=== PATIENT | female | born 1985 | race Caucasian/White ===

== ENCOUNTER → 2025-02-02 | Outpatient (CLI) | payer OTHER, SELFPAY ==
--- NOTE | 2025-02-02 09:52 | RAD_ITS ---
EXAM: XR Lumbosacral Spine Flexion/Extension Only, 2 or 3 Views CLINICAL INDICATION: LUMBAR SPINE PAIN TECHNIQUE: Lateral flexion/extension views of the lumbar spine and sacrum. COMPARISON: No relevant prior studies available. FINDINGS: VERTEBRAE: Anterior spondylolisthesis of L4 over L5 by 6 mm on extension and 11 mm on flexion suggesting dynamic instability. Moderate facet arthropathy of L4-S1. No acute fracture. SACRUM/COCCYX: Unremarkable as visualized. No acute fracture. DISC SPACES: No acute findings. No significant narrowing. SOFT TISSUES: Unremarkable. RAD/L/S Spine Bending Flex/Ext IMPRESSION: Anterior spondylolisthesis of L4 over L5 by 6 mm on extension and 11 mm on flex ion suggesting dynamic instability. Reading Location: [facility]
== END | disposition home or self-care (01) ==
LOC: MTRAD 09:51
PROVIDERS: PCP Internal Medicine; Referring Provider Orthopaedic Surgery Orthopaedic Surgery of the Spine; Visit Provider Orthopaedic Surgery Orthopaedic Surgery of the Spine
DX: M43.16 Spondylolisthesis, lumbar region (principal)
CPT/HCPCS: 72120

== ENCOUNTER 2025-03-13 10:00 | Outpatient (RCR) | payer OTHER, SELFPAY ==
--- NOTE | 2025-02-09 15:28 | HP.PTEVAL ---
Patient's Visit Information Visit Information Visit Information: CECE SORENSON is a 39 year old F referred to Physical Therapy by Dr. Ernie Preciado MD with a diagnosis of Spondylolisthesis, spondylolysis.. Date of Evaluation: 02/09/25 Physical Therapist: Kris Rothman, DPT, OCS, CSCS Visit Plan Frequency: 2x /Week Duration: 4-6 Weeks Plan: 2x/week for 3-6 weeks IE HEP sitting posture with towel roll, activity modification for instability adn spondylolisthesis, avoid sitting excessively, other exercises to ry in the gym(back still) treat with core strength and hip strength eemphasizing core stability to HEP quickly with pics, find aggressive general ex that she tolerates(core stable) to get her back to workout, end range flexion ROM exercises to tolerance. quad psoas stretches rollout. ice and TENS as needed. start with 3 weeks and pt to get second opinion on surgery adn see pain management next week. Subjective Subjective: L hip pain was start and worked on stretching, chiropractor did not help. X rays hips were fine. sent to [facility] for LB. Pain has been off and on for yars. but episode last fall was very bad and hard to lift leg. Then relieved. started again 3 months. Crossfitteer but not lately, not picked up katelyn in 3 months, back spasms, hip pain laterally are main symtoms and L leg gets stiff. sitting in chair gets stiff in L leg and makes it hard to stand and walk. No numbness or tingling. Sleeping is interrupted, rolling in bed is not comfortable, Sometimes hard to lie on back. Gets out of bed gingerly. 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 Take care of kids 11 adn 9. Run them to sports, has had to avoid wrestling and playing sports with them. Pain L hip: Pain Intensity (Out of 10): 2 Pain Intensity Range: 0 and 9 Comment: sitting at ball games Objective Objective: Walks into PT I and trasnfeers I, hesitant on table rolls. Lumbar AROM ext is full and painful L, flexion is painful L LB and hesitant, SB are symmeetrical. rflexes 2/3 patella and achilles Sensation LE WNL to gross lgiht touch. Streength LE without myotomal probleems today, unstable with seated hip tsting in hips and spine. 3+ core strenght abd and ext, 3+ hip abd and ext adn rotation B. knee and ankles 5/5 + SLR L and = Slump L. Reepeated extension NE on symptoms, pt comfortable at rest today. Balance/Special Test Scores Oswestry Low Back Score: 26 Goals Goal 1:: pain in LB and L hip 80% better and 1/10 at worst. Goal Time Frame: 4-6 Weeks Goal 2:: Full aROM L/S without pain or hesitation. Goal Time Frame: 4-6 Weeks Goal 3:: sleep without interruption at night. Goal Time Frame: 4-6 Weeks Goal 4:: bed trasnfers without pain. Goal Time Frame: 4-6 Weeks Goal 5:: return to compreheensive workout without pain Goal Time Frame: 4-6 Weeks Goal 6:: oswestry score 8 or better Goal Time Frame: 4-6 Weeks Rehabilitation Potential Physical Therapy Diagnosis: pain and weakness limiting comfortable funciton Rehabilitation Potential: Fair Anticipated Interventions Patient/Client Instruction: Educate patient on: Condition and Plan of Care For the Purpose of:: To decrease pain, To increase ROM, To improve nutrient delivery to tissue, To improve muscle performance and motor function and To increase tolerance to activity/condition/position Therapeutic Exercise to Include: Strength training, Postural training, Flexibilty training, Active ROM and Dynamic Lumbar Stabilization For the Purpose of:: To decrease pain, To increase ROM, To improve nutrient delivery to tissue, To improve muscle performance and motor function, To increase tolerance to activity/condition/position, To improve ability of physical actions for home/community/work/leisure and To improve gait and locomotor functions Manual Therapy Techniques to Include: Soft tissue mobilization For the Purpose of:: To improve nutrient delivery to tissue TENS: Yes Cryotherapy (ice pack, ice massage): Yes For the Purpose of:: To decrease pain, To decrease swelling/inflammation and To improve nutrient delivery to tissue Text: Thank you for the opportunity to evaluate your patient. For Medicare and Medicare HMO plans, please review the plan of care and approve it. It will need to be FAXED BACK to us at [phone] for Medicare purposes. For Medicare only, by signing this I certify the plan of care. Please let me know if there are questions or concerns regarding this plan of care. Physician Signature: Date:
--- NOTE | 2025-05-23 15:10 | HP.PT.NRP ---
Patient Information Patient Information: CECE SORENSON was seen in my office for initial evaluation on 02/09/25. The following Plan of Care was established for this patient: POC Established Initial Frequency: 2x /Week Initial Duration: 4-6 Weeks Anticipated Interventions Patient/Client Instruction: Educate patient on: Condition and Plan of Care For the Purpose of:: To decrease pain, To increase ROM, To improve nutrient delivery to tissue, To improve muscle performance and motor function and To increase tolerance to activity/condition/position Therapeutic Exercise to Include: Strength training, Postural training, Flexibilty training, Active ROM and Dynamic Lumbar Stabilization For the Purpose of:: To decrease pain, To increase ROM, To improve nutrient delivery to tissue, To improve muscle performance and motor function, To increase tolerance to activity/condition/position, To improve ability of physical actions for home/community/work/leisure and To improve gait and locomotor functions Manual Therapy Techniques to Include: Soft tissue mobilization For the Purpose of:: To improve nutrient delivery to tissue TENS: Yes Cryotherapy (ice pack, ice massage): Yes For the Purpose of:: To decrease pain, To decrease swelling/inflammation and To improve nutrient delivery to tissue Last Seen Last Seen: This patient was last seen in our office 03/13/25. Pertinent comments regarding their Physical therapy will appear below: Pt seen 11 visits of POC and was 70+% better. she was to continue her POC but did not attend any further visits. At this point, it has been over 2 months and I will discontinue her from my care. At this point I will be discontinuing this patient from physical therapy. I would be happy to see this patient again in the future if found appropriate by the physician. Thank you! Kris Rothman, DPT, OCS, CSCS Balance/Gait/Functional tests Balance/Special Test Scores Oswestry Low Back Score: 18
== END 2025-03-13 19:00 | disposition home or self-care (01) ==
LOC: PT 10:00
PROVIDERS: PCP Internal Medicine; Referring Provider Orthopaedic Surgery Orthopaedic Surgery of the Spine; Visit Provider Orthopaedic Surgery Orthopaedic Surgery of the Spine
DX: M43.16 Spondylolisthesis, lumbar region (principal); M43.06 Spondylolysis, lumbar region
CPT/HCPCS: 97110; 97161; 97530

== ENCOUNTER → 2025-04-09 | Outpatient (CLI) | payer OTHER, SELFPAY ==
[2025-04-09 17:11] LABS: Hematocrit 39.9 % (37-47); Hemoglobin 13.7 g/dL (12.0-15.0); Immature Granulocytes Count 0.010 X10^3/uL (0.0-0.0); Mean Corp Hgb Conc 34.3 g/dL (32-36); Mean Corpuscular Volume 89.1 fL (81-99); Mean Platelet Vol. 9.3 fl (6.2-12.0); NRBC Flagged by Analyzer 0 % (0-5); Platelet Count 235 K/mm3 (150-450); RBC Distribution Width CV 12.1 % (11.6-14.6); RBC Distribution Width SD 39.4 fl (35.1-43.9); Red Blood Count 4.48 M/mm3 (4.2-5.4); White Blood Count 6.5 K/mm3 (4.4-11.0)
[2025-04-09 17:42] LABS: AST(SGOT) 17 U/L (<=31); Alanine Aminotransfer ALT/SGPT 10 U/L (<=34); Albumin, Serum 4.5 g/dL (3.5-5.0); Alkaline Phosphatase 42 U/L (35-104); Anion Gap 12 (5-15); BUN 18 mg/dL (4-19); BUN/Creat Ratio 20.7 RATIO (10-20); Calcium,Total 9.8 mg/dL (7.6-11.0); Carbon Dioxide 25.0 mmol/L (21.0-32.0); Chloride 103 mmol/L (98-108); Globulin 2.4 g/dL (2.2-4.2); Glucose 86 mg/dL (70-99); Potassium 4.4 mmol/L (3.3-5.1)
[2025-04-09 17:47] LABS: Vitamin B12 527 pg/mL (180-914); Vitamin D,25 Hydroxy 42.0 ng/mL (30-100)
== END | disposition home or self-care (01) ==
LOC: BIMLAB 15:31
PROVIDERS: PCP Internal Medicine; Referring Provider Internal Medicine; Visit Provider Internal Medicine
DX: F41.9 Anxiety disorder, unspecified (principal); F32.A Depression, unspecified
CPT/HCPCS: 36415; 80053; 82306; 82607; 84439; 84443; 85025

== ENCOUNTER → 2025-05-11 | Outpatient (CLI) | payer OTHER, SELFPAY ==
--- NOTE | 2025-05-11 16:14 | CT_ITS ---
PROCEDURE: CT ABDOMEN/PELVIS WITH CONTRAST 05/11/2025 REASON FOR EXAM: Epigastric abdominal tenderness/lump TECHNIQUE: Procedure Code: [id number] Modality: CT Procedure: ABDOMEN/PELVIS WITH CONTRAST Coronal and Sagittal reconstruction series were provided. IV CONTRAST: Isovue 370 VOLUME: 96 mL. Oral contrast was administered. One or more dose reduction techniques were used (e.g., Automated exposure control, adjustment of the mA and/or kV according to patient size, use of iterative reconstruction technique. RADIATION DOSE SUMMARY: DLP: 297.22 mGycm COMPARISON: None. FINDINGS: Lung bases: Clear. Liver: Hepatic steatosis. Otherwise unremarkable. Gallbladder: Unremarkable. No biliary ductal dilatation. Spleen: Normal size and morphology. Pancreas: Unremarkable. No focal lesion, ductal dilatation or peripancreatic fat stranding/edema to suggest acute pancreatitis. Adrenals: Unremarkable. Kidneys: Few bilateral small simple appearing renal cysts. Symmetric enhancement. No urolithiasis or hydronephrosis on either side. Bladder: Unremarkable. Reproductive Organs: Within normal limits. Bilateral small crenulated peripherally enhancing involuting ovarian cysts. No free pelvic fluid is appreciated. Bowel: Unremarkable. No bowel obstruction or active inflammatory process. Appendix is not well visualized but there are no pericecal inflammatory changes. No hernia. Lymph nodes: No enlarged abdominopelvic lymph nodes. Vasculature: Major vascular structures are patent, normal in course and caliber. Peritoneum / Retroperitoneum: No ascites or free air. Musculoskeletal: Mild degenerative changes of the visualized spine, with chronic degenerative grade 1 anterolisthesis of L4 on L5. bilateral breast implants. No ventral abdominal wall hernia. In the anterior midline epigastric ventral abdominal wall there is a subcutaneous fat density focus with the appearance of a small lipoma, which measures roughly 3.2 x 1.9 x 1.2 cm (TV, CC, AP). CT/Abdomen/Pelvis WITH Contrast IMPRESSION: No acute or active inflammatory intra-abdominal pathology. No ventral abdominal wall hernia. Small anterior abdominal wall midline epigas tric subcutaneous rounded fat density presumed lipoma at the area of clinical concern (see fry images). Reading Location: [id number]
--- OUTSIDE RECORDS SUMMARY | 2025-05-11 18:11 | XMS RPT_ITS | CCD ---
Author Organization [facility]ini[facility] Care Team Providers Care Logistics Planner Name Role Phone Pedro Pablo AN MD, Frank A Primary Care Provider Dori vailable RIC CHAMORRO III Primary Care Unavailable RASHAWN HOLLIS JR Referring Unavailable RIC CHAMORRO III Primary Care Unavailable CIERRA PAGAN Attending Unavailable DORA RENDON Referring Unavail able Dr. Rashawn Hollis DO Attending Provider Mariah GLASER, Dr. Knight Attending Provider Ozzy GLASER, Dr. Klein Attending Provider Dr. Ernie Preciado MD Referring Provider Mady GLASER, Dr. Tan Primary Care Provider Mady GLASER, Dr. Tan Referring Provider [phone] Dr. Dominick Earl MD Attending Provider [phone] Ungjoser OIL PROCESSING TECHNICIAN-CCrystal Attending Provider [phone] Oleghe, Efewongbe Primary Care Unavailable Preciado Ernie Attending Unavailable Preciado, Ernie Referring Unavailable Oleghe, Efewongbe Primary Care Unavailable Ernie Preciado Attending Unavailable Gio Preciadoag Referring Unavailable Rashawn Hollis Attending Unavailable Eugene Lemus Attending Unavailable Ernie Preciado Attending Unavailable Ungerer Crystal Referring Unavailable Oleghe, Efewongbe Primary Care Unavailable Ungerer Crystal Attending Unavailable Ungerer Crystal Referring Unavailable Oleghe, Efewongbe Primary Care Unavailable Ungerer, Crystal Attending Unavailable Oleghe, Efewongbe Referring Unavailable Oleghe, Efewongbe Primary Care Unavailable Preciado Ernie Attending Unavailable Ungerer, Crystal Attending Unavailable Oleghe, Efewongbe Referring Unavailable Mady, Dominick Primary Care Unavailable Mady, Dominick Primary Care Unavailable Tyler Earlbe Attending Unavailable Mady, Efowenongbe Referring Unavailable Mady, Joseongbe Attending Unavailable Mady, Joseongbe Referring Unavailable Mady, Dominick Primary Care Unavailable Medications Current Medications Medication Drug Class(es) Dates Sig (Normalized) Sig (Original) [id number] 200 actuat albuterol 0.09 mg/actuat metered dose inhaler (6 sources) beta2-Adrenergic Agonist Start: 04-14-2023 take 2 puff(s) by inhalation every six hours as needed albuterol HFA (PROAIR HFA) 90 mcg/actuation inhaler Inhale 2 Puffs as instructed every 6 hours as needed. 1 Each 04/14/2023 Active Comment on above: Inhale 2 Puffs as in structed every 6 hours as needed. meloxicam 7.5 mg oral tablet (3 sources) Nonsteroidal Anti-inflammatory Drug Start: 04-09-2025 take 1 tablet by mouth once daily Meloxicam 7.5 mg tablet Active 7.5 mg PO daily April 09, 2025 12:00am miSOPROStol 0.2 mg oral tablet (3 sources) Prostaglandin E1 Analog Start: 02-15-2024 miSOPROStol (CYTOTEC) 200 mcg tablet Use 2 tablets vaginally as directed. The night before the procedure and the morning of the procedure. 4 tablet 02/15/2024 Active sertraline 25 mg oral tablet (10 sources) Serotonin Reuptake Inhibitor Start: 04-10-2025 take 1 tablet by mouth once daily Sertraline (Zoloft) 25 mg tablet Active 25 mg PO daily 30 April 10, 2025 12:00am Start: 12-02-2020 End: 02-15-2024 take 1 tablet by mouth once daily sertraline (ZOLOFT) 50 mg tablet Indications: Anxiety Take 1 tablet by mouth once daily. 30 tablet 11 12/02/2020 02/15/2024 Discontinued Comment on above: Take 1 tablet by grecia once daily. triamcinolone acetonide 1 mg/ml topical cream (1 source) Corticosteroid Start: 05-14-2022 End: 05-21-2022 triamcinolone acetonide (KENALOG) 0.1 % cream Apply 1 application to affected area twice daily for 7 days. Apply sparingly to area for rash/itching. 45 g 0 05/14/2022 05/21/2022 Active Comment on above: Apply 1 application to affected area twice daily for 7 days. Apply sparingly to area for rash/itching. Completed/Discontinued Medications Medication Drug Class(es) Dates Sig (Normalized) Sig (Original) acetaminophen 325 mg / oxyCODONE hydrochloride 5 mg oral tablet (5 sources) Opioid Agonist Start: 03-01-2016 End: 01-12-2025 Oxycodone-Acetami nophen 1 TABLET tablet Discontinued 1 - 2 {tbl} PO EVERY 4 HOURS NEEDED as needed for Pain March 01, 2016 12:00am January 12, 2025 8:03am benzonatate 100 mg oral capsule (4 sources) Non-narcotic Antitussive Start: 04-14-2023 End: 02-15-2024 take 2 capsules by mouth every eight hours as needed benzonatate (TESSALON PERLES) 100 mg capsule Take 2 capsules by mouth three times daily as needed. 30 capsule 0 04/14/2023 02/15/2024 Discontinued Comment on above: Take 2 capsules by [facility] three times daily as needed. 12 hr cetirizine hydrochloride 5 mg / pseudoephedrine hydrochloride 120 mg extended release oral tablet (8 sources) alpha-Adrenergic Agonist, Histamine-1 Receptor Antagonist Start: 10-04-2018 End: 02-15-2024 take 1 tablet by mouth twice daily cetirizine-pseudo ephedrine (ZYRTEC-D) 5-120 mg per tablet Take 1 tablet by mouth twice daily. 20 tablet 10/04/2018 02/15/2024 Discontinued Comment on above: Take 1 tablet by [facility] twice daily. citalopram 10 mg oral tablet (5 sources) Serotonin Reuptake Inhibitor Start: 03-01-2016 End: 01-12-2025 take 1 tablet by mouth once daily Citalopram 10 MG tablet Discontinued 10 mg PO DAILY 30 March 01, 2016 12:00am January 12, 2025 8:03am DULoxetine 30 mg delayed release oral capsule (3 sources) Serotonin and Norepinephrine Reuptake Inhibitor Start: 04-09-2025 End: 04-10-2025 take 1 capsule by mouth once daily Duloxetine 30 mg capsule,delayed release(DR/EC) Discontinued 30 mg PO daily 30 3 April 09, 2025 12:00am April 10, 2025 1:08pm Ethinyl Estradiol / Ferrous fumarate / Norethindrone (9 sources) Estrogen Start: 12-10-2021 End: 02-15-2024 take 1 tablet by mouth once daily Norethindrn A-E Estradiol-Iron (FEBRUARYL FE 24) 1 mg-20 mcg (24)/75 mg (4) Take 1 tablet by mouth once daily. 28 tablet 11 12/10/2021 02/15/2024 Discontinued Start: 12-10-2021 take 1 tablet by grecia th once daily Norethindrn A-E Estradiol-Iron (FEBRUARYL FE 24) 1 mg-20 mcg (24)/75 mg (4) Take 1 tablet by mouth once daily. 28 tablet 11 12/10/2021 Active Start: 10-18-2020 End: 12-10-2021 take 1 tablet by mouth once daily Norethindrn A-E Estradiol-Iron (FEBRUARYL FE 24) 1 mg-20 mcg (24)/75 mg (4) Take 1 tablet by mouth once daily. 1 Package 12 10/18/2020 12/10/2021 Discontinued Comment on above: Take 1 tablet by grecia th once daily. etodolac 500 mg oral tablet (10 sources) Nonsteroidal Anti-inflammatory Drug Start: 025 End: take 1 tablet by mouth twice daily as needed for pain Etodolac 500 mg tablet Discontinued 500 mg PO TWICE A DAY as needed for pain 30 0 January 22, 2025 9:43am March 15, 2025 2:05pm Do not take in conjunction with ibuprofen or other NSAID. fluticasone propionate 0.05 mg/actuat metered dose nasal spray (8 sources) Corticosteroid Start: 019 End: take 2 spray(s) by mouth once daily fluticasone (FLONASE) 50 mcg/actuation nasal spray Use 2 Sprays in each nostril once daily. Rinse mouth after use. 1 Bottle 10/04/2018 02/15/2024 Discontinued Comment on above: Use 2 Sprays in each nostril once daily. Rinse mouth after use. ibuprofen 400 mg oral tablet (5 sources) Nonsteroidal Anti-inflammatory Drug Start: 016 End: take 2 tablets by mouth every eight hours as needed for pain Ibuprofen 400 MG tablet Discontinued 800 mg PO Q8H as needed for Pain 40 0 March 01, 2016 12:00pm April 09, 2025 2:51pm levonorgestrel 0.104608 mg/hr intrauterine system (2 sources) Progestin, Progestin-containing Intrauterine Device Start: 024 End: levonorgestrel (MIRENA) 21 mcg/24 hr (8 yrs) 52 mg IUD Indications: Encounter for IUD insertion 1 Each by INTRAUTERINE route as directed. 1 Each 0 02/15/2024 02/15/2024 Discontinued (Other) Vit,[id number]-[id number] (Prenatabs Fa ) 1 TABLET tablet (5 sources) Start: 014 End: 025 take 1 tablet by mouth once daily Vit,[id number] (Prenatabs Fa ) 1 TABLET tablet Discontinued 1 {tbl} PO DAILY January 27, 2014 12:00am January 12, 2025 8:04am Problems Active Problems Problem Classification Problem Date Documented Date Episodic/Chronic Abdominal pain (1 source) Epigastric abdominal tenderness; Translations: [Epigastric abdominal tenderness] Onset: 05-07-2025 Episodic Anxiety disorders (14 sources) Anxiety; Translations: [Anxiety disorder, unspecified] Onset: 09-05-2010 Resolved: 07-02-2018 Chronic Chronic obstructive pulmonary disease and bronchiectasis (1 source) Bronchitis; Translations: [Bronchitis, not specified as acute or chronic] 04-14-2023 Episodic Contraceptive and procreative management (1 source) Patient encounter status; Translations: [Encounter for insertion of intrauterine contraceptive device] 02-15-2024 Episodic Menstrual disorders (13 sources) Menorrhagia; Translations: [Excessive and frequent menstruation with regular cycle] Onset: 04-09-2025 12-24-2023 Chronic Mood disorders (1 source) Mood disorders; Translations: [Depression, unspecified] Onset: 04-09-2025 Other acquired deformities (20 sources) Spondylolisthesis; Translations: [Spondylolisthesis, site unspecified] Episodic Comment on above: . Other acquired deformities (14 sources) Lumbar spondylolisthesis; Translations: [Spondylolisthesis, lumbar region] 02-02-2025 Episodic Other acquired deformities (10 sources) Spondylolysis; Translations: [Spondylolysis, lumbar region] 01-12-2025 Episodic Other acquired deformities (1 source) Spondylolisthesis, lumbar region; Translations: [Spondylolisthesis, lumbar region] Onset: 02-08-2025 Episodic Other non-traumatic joint disorders (2 sources) Pain in left hip; Translations: [Pain in left hip] Onset: 01-12-2025 Episodic Spondylosis; intervertebral disc disorders; other back problems (18 sources) Spinal stenosis of lumbar region; Translations: [Spinal stenosis, lumbar region with neurogenic claudication] Onset: 04-09-2025 02-02-2025 Episodic Superficial injury; contusion (1 source) Insect bite of trunk; Translations: [Insect bite (nonvenomous) of abdominal wall, initial encounter] Episodic Thyroid disorders (10 sources) Secondary hypothyroidism; Translations: [Other specified hypothyroidism] Onset: 01-15-2017 01-15-2017 Chronic Unclassified (19 sources) Spondylolysis of lumbar region; Translations: [M43.06 - Spondylolysis, lumbar region,M43.16 - Spondylolisthesis, lumbar region] Unclassified (9 sources) M43.16 - Spondylolisthesis, lumbar region,M43.06 - Spondylolysis, lumbar region Past or Other Problems Problem Classification Problem Date Documented Da te Episodic/Chronic Miscellaneous mental health disorders (6 sources) depression; Translations: [ depression] Onset: 01-20-2017 Resolved: 07-02-2018 07-02-2018 Episodic Other acquired deformities (1 source) Spondylolysis, lumbar region; Translations: [Spondylolysis, lumbar region] Onset: 02-02-2025 Episodic Other and delivery including normal (18 sources) Normal in primigravida; Translations: [Encounter for supervision of normal first , unspecified trimester] Onset: 07-20-2013 Resolved: 04-08-2016 09-08-2021 Episodic Residual codes; unclassified (6 sources) FH: Chromosomal anomaly; Translations: [Family history of other congenital malformations, deformations and chromosomal abnormalities] Onset: 06-15-2013 Resolved: 09-26-2013 09-08-2021 Episodic Screening and history of mental health and substance abuse codes (6 sources) H/O: depression; Translations: [Personal history of other mental and behavioral disorders] Onset: 08-13-2015 Resolved: 04-08-2016 09-08-2021 Episodic Results Test Name Value Interpretation Reference Range Facility Internal Medicine Office Vis alice 05-01-2025 Internal Medicine Office Visit [facility] [address] [place] [address] [place] [address] OFFICE VISIT Date of Service: 05/01/25 MR#: [id number] Acct: [id number] Name: CECE OSBORNE Rep #: [id number] : 1985 Provider: LORRI enamorado Age/Sex: 40/F Location: [facility] Status: Signed Intake Vital Signs 04/09/25 14:55 05/01/25 12:29 Height 5 ft 5 ft Weight: 126 lb 123 lb 8 oz BMI 24.6 24.1 BP 106/58 L 118/70 Blood Pressure Location Lt brachial Lt brachial Position Sitting Sitting Respiration 16 16 Pulse 76 91 Pulse Source Monitor Monitor Temp 98 F 96.1 F L Temp Source Temporal Temporal Pulse Oximetry (%) 98 98 Oxygen Delivery Method room air room air Intake Visit Reasons: POSSIBLE HERNIA Chief Complaint: hernia Robotic Weld Technician Required: No Accompanied by: Self Is patient in pain?: No Allergies No Known Allergies Allergy (Verified 05/01/25 12:22) Medications ???Medication ???Instructions ???Recorded ???Confirmed ???Type sertraline 25 mg tablet (Zoloft) 25 mg PO QDAY #30 tabs 04/10/25 Rx meloxicam 7.5 mg tablet 7.5 mg PO QDAY #60 tabs 05/01/25 0 05/01/25 Rx Nurse's Note: prescription for meloxicam was sent 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 d/t [facility] stating they never recd order pain in left hip continues and now noticed a protrusion above umilicus [facility] Medical History Menorrhagia Anxiety and depression Anesth complication 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 Anxiety Surgical History History of breast augmentation History of delivery History of tonsillectomy Family History Father AA (alcohol abuse) Arthritis Depression Mother Anemia Hypercholesteremia Maternal Grandmother Ovarian cancer Thyroid disorder Uterine cancer Osteoporosis Colon cancer Melanoma CVA (cerebral vascular accident) Hypercholesteremia Maternal Grandfather Myocardial infarction Heart disease Kidney disease Melanoma CVA (cerebral vascular accident) Grandfather Heart disease Sister Severe allergy Social History adopted: No household members: spouse and children number of children: 2 current occupational status: unemployed pets and animals: No sexually active: Yes Smoking Status: Never smoker alcohol intake: current alcohol intake frequency: holidays/special occasions only details: < 3 in 1 sitting substance use type: does not use caffeine: Yes (1 rain energy 300mg) Type: other what type of physical activity do you participate in: aerobics frequency: 5-6 times per week do you feel safe at home: Yes HPI HPI Chief Complaint: hernia Details: CECE OSBORNE, is a 40 F who presents to the office today for concern of a new bump in her upper abdomen. Patient was lying down and noticed a lump in her upper abdomen approximately 2 days ago patient was concerned about hernia. Patient denies pain in the area states area is sometimes tender. Area has persisted and she denies any history of abdominal injury to that area or any previous hernias. Patient also continues to complain of pain in the left hip she has been seen by orthopedics previously and treated for lower back pain as well. She needs a refill on her meloxicam. She denies any nausea vomiting denies constipation denies diarrhea. Denies any acute abdominal pain or concerns. ROS Const Constitutional: No body ache, excessive sweating, fatigue, fever(s), frequent falls, headache(s), snoring, weakness, weight change, sleep problems or change in appetite Eyes Eyes: No blurry vision, change in vision, eye pain or Light sensitivity ENT ENT: No abnormal hearing, ear or mastoid pain, tinnitus, nasal congestion, headache(s), neck pain or sore throat Resp Respiratory: No cough, shortness of breath, snoring or wheezing Cardio Cardiology: No chest pain at rest, chest pain with exertion, excessive sweating, shortness of breath, dyspnea on exertion, lightheadedness, orthopnea or palpitations Gastro GI: No abdominal pain, change in bowel habits, constipation, cramping, diarrhea, nausea/dyspepsia or vomiting Genitourinary-Female: No burning urination, painful urination, urinary incontinence, urinary frequency, blood in urine, abnormal periods or pelvic pain Musc Musculoskeletal: No abnormal gait, joint pain, back pain, limited range of motion, neck pain, numbness, stiffness, tingling or Arthritis Skin Skin: No dry skin, redness, lesions, itchy eyes, rash or wounds Neuro Neurology: No abnormal gait, abnormal hearing, abnormal speech, dizziness, weakness, frequent falls, headache(s), memory loss, numbness or tingling Psych Psychiatric: No anxiety, No change i (more content not included)... Normal [facility] Absolute lymphocyte countOrd ered By: Dominick Earl on 04-09-2025 Lymphocytes Auto (Unsp spec) [#/Vol] 2.34 10*3/uL 0.83-4.51 [facility] Absolute neutrophil countOrd ered By: Dominick Earl on 04-09-2025 Neutrophils (Bld) [#/Vol] 3.3 10*3/uL 2.0-7.7 [facility] Anion gap in Serum or Plasma Ordered By: Dominick Earl on 04-09-2025 Anion gap [Moles/Vol] 12 mmol/L 5-15 [facility] Automated lymphocyte count a s percentage of total leukocytesOrdered By: Dominick Earl on 04-09-2025 Lymphocytes/100 WBC Auto (Unsp spec) 36.2 % 19-41 [facility] BUN/creatinine ratioOrdered By: Dominick Earl on 04-09-2025 Urea nitrogen/Creatinine [Mass ratio] 20.7 mg/mg High 10-20 [facility] Basophil percentageOrdered B y: Dominick Earl on 04-09-2025 Basophils/100 WBC (Bld) 0.9 % 0-1 [facility] Bilirubin, totalOrdered By: Dominick Earl on 04-09-2025 Bilirubin [Mass/Vol] 0.89 mg/dL 0.00-1.30 [facility] CBC W/Diff, Automatedon 07- Absolute Lymph 2.34 X10 3/uL Normal 0.83-4.51 [facility] Comment on above: Performed By: #### L 506.1001, L503.0106, L506.0400, L100.0100, L501.9520, L500.4050 #### [facility] [address] [place], [address] Absolute Neut 3.3 X10 3/uL Normal 2.0-7.7 [facility] Comment on above: Performed By: #### L 506.1001, L503.0106, L506.0400, L100.0100, L501.9520, L500.4050 #### [facility] [address] [place], [address] Basophils/100 WBC (Bld) 0.9 % Normal 0-1 [facility] Comment on above: Performed By: #### L 506.1001, L503.0106, L506.0400, L100.0100, L501.9520, L500.4050 #### [facility] [address] [place], [address] Eosinophils/100 WBC (Bld) 1.9 % Normal 0-5 [facility] Comment on above: Performed By: #### L 506.1001, L503.0106, L506.0400, L100.0100, L501.9520, L500.4050 #### [facility] [address] [place], [address] Erythrocyte distribution width (RBC) [Ratio] 12.1 % Normal 11.6-14.6 [facility] Comment on above: Performed By: #### L 506.1001, L503.0106, L506.0400, L100.0100, L501.9520, L500.4050 #### [facility] [address] [place], [address] Hematocrit (Bld) [Volume fraction] 39.9 % Normal 37-47 [facility] Comment on above: Performed By: #### L 506.1001, L503.0106, L506.0400, L100.0100, L501.9520, L500.4050 #### [facility] [address] [place], [address] Hemoglobin (Bld) [Mass/Vol] 13.7 g/dL Normal 12.0-15.0 [facility] Comment on above: Performed By: #### L 506.1001, L503.0106, L506.0400, L100.0100, L501.9520, L500.4050 #### [facility] [address] [place], [address] IG% 0.200 Normal 0.0-0.9 [facility] Comment on above: Result Comment: IG% - Immature Granulocytes (promyelocytes, myelocytes and metamyelocytes) > 1% indicates that a LEFT SHIFT is Present. Performed By: #### L 506.1001, L503.0106, L506.0400, L100.0100, L501.9520, L500.4050 #### [facility] [address] [place], [address] Lymphocytes/100 WBC (Bld) 36.2 % Normal 19-41 [facility] Comment on above: Performed By: #### L 506.1001, L503.0106, L506.0400, L100.0100, L501.9520, L500.4050 #### [facility] [address] [place], [address] MCH (RBC) [Entitic mass] 30.6 pg Normal 27.0-32.0 [facility] Comment on above: Performed By: #### L 506.1001, L503.0106, L506.0400, L100.0100, L501.9520, L500.4050 #### [facility] [address] [place], [address] MCHC (RBC) [Mass/Vol] 34.3 g/dL Normal 32-36 [facility] Comment on above: Performed By: #### L 506.1001, L503.0106, L506.0400, L100.0100, L501.9520, L500.4050 #### [facility] [address] [place], [address] MCV (RBC) [Entitic vol] 89.1 fL Normal 81-99 [facility] Comment on above: Performed By: #### L 506.1001, L503.0106, L506.0400, L100.0100, L501.9520, L500.4050 #### [facility] [address] [place], [address] Monocytes/100 WBC (Bld) 9.4 % Normal 0-10 [facility] Comment on above: Performed By: #### L 506.1001, L503.0106, L506.0400, L100.0100, L501.9520, L500.4050 #### [facility] [address] [place], [address] Neutrophils/100 WBC (Bld) 51.4 % Normal 47-70 [facility] Comment on above: Performed By: #### L 506.1001, L503.0106, L506.0400, L100.0100, L501.9520, L500.4050 #### [facility] [address] [place], [address] Nucleated RBC (Bld) [#/Vol] 0 10*3/uL Normal 0-5 [facility] Comment on above: Performed By: #### L 506.1001, L503.0106, L506.0400, L100.0100, L501.9520, L500.4050 #### [facility] [address] [place], [address] Platelet mean volume (Bld) [Entitic vol] 9.3 fL Normal 6.2-12.0 [facility] Comment on above: Performed By: #### L 506.1001, L503.0106, L506.0400, L100.0100, L501.9520, L500.4050 #### [facility] [address] [place], [address] Platelets (Bld) [#/Vol] 235 10*3/uL Normal 150-450 [facility] Comment on above: Performed By: #### L 506.1001, L503.0106, L506.0400, L100.0100, L501.9520, L500.4050 #### [facility] [address] [place], [address] RBC (Bld) [#/Vol] 4.48 10*6/uL Normal 4.2-5.4 [facility] Comment on above: Performed By: #### L 506.1001, L503.0106, L506.0400, L100.0100, L501.9520, L500.4050 #### [facility] [address] [place], [address] RDW SD 39.4 fl Normal 35.1-43.9 [facility] Comment on above: Performed By: #### L 506.1001, L503.0106, L506.0400, L100.0100, L501.9520, L500.4050 #### [facility] [address] [place], [address] WBC (Bld) [#/Vol] 6.5 10*3/uL Normal 4.4-11.0 [facility] Comment on above: Performed By: #### L 506.1001, L503.0106, L506.0400, L100.0100, L501.9520, L500.4050 #### [facility] [address] [place], [address] Carbon dioxide, total [Moles /volume] in Central venous bloodOrdered By: Dominick Earl on 04-09-2025 CO2 [Moles/Vol] 25.0 mmol/L 21.0-32.0 [facility] Chloride assayOrdered By: Juliann Earl on 04-09-2025 Chloride [Moles/Vol] 103 mmol/L 98-108 [facility] Metabolic Prof ilon 04-09-2025 Albumin [Mass/Vol] 4.5 g/dL Normal 3.5-5.0 [facility] Comment on above: Performed By: #### L 506.1001, L503.0106, L506.0400, L100.0100, L501.9520, L500.4050 #### [facility] [address] [place], [address] Albumin/Globulin [Mass ratio] 1.9 {ratio} Normal 0.9-2.4 [facility] Comment on above: Performed By: #### L 506.1001, L503.0106, L506.0400, L100.0100, L501.9520, L500.4050 #### [facility] [address] [place], [address] ALK PHOS 42 U/L Normal 35-104 [facility] Comment on above: Performed By: #### L 506.1001, L503.0106, L506.0400, L100.0100, L501.9520, L500.4050 #### [facility] [address] [place], [address] ALT [Catalytic activity/Vol] 10 U/L Normal <=34 [facility] Comment on above: Performed By: #### L 506.1001, L503.0106, L506.0400, L100.0100, L501.9520, L500.4050 #### [facility] [address] [place], [address] AST [Catalytic activity/Vol] 17 U/L Normal <=31 [facility] Comment on above: Performed By: #### L 506.1001, L503.0106, L506.0400, L100.0100, L501.9520, L500.4050 #### [facility] [address] [place], [address] Bilirubin [Mass/Vol] 0.89 mg/dL Normal 0.00-1.30 [facility] Comment on above: Performed By: #### L 506.1001, L503.0106, L506.0400, L100.0100, L501.9520, L500.4050 #### [facility] [address] [place], [address] BUN/CRE 20.7 RATIO High 10-20 [facility] Comment on above: Performed By: #### L 506.1001, L503.0106, L506.0400, L100.0100, L501.9520, L500.4050 #### [facility] [address] [place], [address] Calcium [Mass/Vol] 9.8 mg/dL Normal 7.6-11.0 [facility] Comment on above: Performed By: #### L 506.1001, L503.0106, L506.0400, L100.0100, L501.9520, L500.4050 #### [facility] [address] [place], [address] Chloride [Moles/Vol] 103 mmol/L Normal 98-108 [facility] Comment on above: Performed By: #### L 506.1001, L503.0106, L506.0400, L100.0100, L501.9520, L500.4050 #### [facility] [address] [place], [address] CO2 [Moles/Vol] 25.0 mmol/L Normal 21.0-32.0 [facility] Comment on above: Performed By: #### L 506.1001, L503.0106, L506.0400, L100.0100, L501.9520, L500.4050 #### [facility] [address] [place], [address] Creatinine [Mass/Vol] 0.87 mg/dL Normal 0.70-1.20 [facility] Comment on above: Performed By: #### L 506.1001, L503.0106, L506.0400, L100.0100, L501.9520, L500.4050 #### [facility] [address] [place], [address] GAP 12 Normal 5-15 [facility] Comment on above: Performed By: #### L 506.1001, L503.0106, L506.0400, L100.0100, L501.9520, L500.4050 #### [facility] [address] [place], [address] GFR/1.73 sq M.predicted among non-blacks MDRD (S/P/Bld) [Vol rate/Area] 87 mL/min/{1.73_m2} Normal >60 [facility] Comment on above: Result Comment: mL/m in/1.73m2 CKD-EPI Creatinine Equation (2020) Performed By: #### L 506.1001, L503.0106, L506.0400, L100.0100, L501.9520, L500.4050 #### [facility] [address] [place], [address] Globulin (S) [Mass/Vol] 2.4 g/dL Normal 2.2-4.2 [facility] Comment on above: Performed By: #### L 506.1001, L503.0106, L506.0400, L100.0100, L501.9520, L500.4050 #### [facility] [address] [place], [address] Glucose [Mass/Vol] 86 mg/dL Normal 70-99 [facility] Comment on above: Performed By: #### L 506.1001, L503.0106, L506.0400, L100.0100, L501.9520, L500.4050 #### [facility] [address] [place], [address] Potassium [Moles/Vol] 4.4 mmol/L Normal 3.3-5.1 [facility] Comment on above: Performed By: #### L 506.1001, L503.0106, L506.0400, L100.0100, L501.9520, L500.4050 #### [facility] [address] [place], [address] Sodium [Moles/Vol] 139 mmol/L Normal 133-145 [facility] Comment on above: Performed By: #### L 506.1001, L503.0106, L506.0400, L100.0100, L501.9520, L500.4050 #### [facility] [address] [place], [address] T PROT 6.8 g/dL Normal 5.9-8.4 [facility] Comment on above: Performed By: #### L 506.1001, L503.0106, L506.0400, L100.0100, L501.9520, L500.4050 #### [facility] [address] [place], [address] Urea nitrogen [Mass/Vol] 18 mg/dL Normal 4-19 [facility] Comment on above: Performed By: #### L 506.1001, L503.0106, L506.0400, L100.0100, L501.9520, L500.4050 #### [facility] [address] [place], [address] Eosinophil percentageOrdered By: Dominick Earl on 04-09-2025 Eosinophils/100 WBC (Bld) 1.9 % 0-5 [facility] Erythrocyte distribution wid th ratioOrdered By: Josecrosbynusrat Earl on 04-09-2025 Erythrocyte distribution width (RBC) [Ratio] 12.1 % 11.6-14.6 [facility] Erythrocyte distribution wid th standard deviationOrdered By: Josecrosbynusrat Earl on 04-09-2025 Erythrocyte distribution width (RBC) [Ratio] 39.4 fl 35.1-43.9 [facility] Glomerular filtration rate ( GFR) estimation/1.73 sq m using serum, plasma, or whole bOrdered By: Dominick Earl on 04-09-2025 GFR/1.73 sq M.predicted among non-blacks MDRD (S/P/Bld) [Vol rate/Area] 87 mL/min/{1.73_m2} >60 [facility] Comment on above: mL/min/1.73m2 CKD-EP I Creatinine Equation (2020) Hematocrit Auto (Bld) [Volum e fraction]Ordered By: Dominick Earl on 04-09-2025 Hematocrit (Bld) [Volume fraction] 39.9 % 37-47 [facility] Hemoglobin measurementOrdere d By: Dominick Earl on 04-09-2025 Hemoglobin (Bld) [Mass/Vol] 13.7 g/dL 12.0-15.0 [facility] Immature granulocytes/100 WB C Auto (Bld)Ordered By: Dominick Earl on 04-09-2025 Immature granulocytes/100 WBC (Bld) 0.200 % 0.0-0.9 [facility] Comment on above: IG% - Immature Granu locytes (promyelocytes, myelocytes and metamyelocytes) > 1% indicates that a LEFT SHIFT is Present. Internal Medicine Office Vis itolili 04-09-2025 Internal Medicine Office Visit [facility] [address] [place] [address] OFFICE VISIT Date of Service: 04/09/25 MR#: [id number] Acct: [id number] Name: CECE OSBORNE Rep #: [id number] : 1985 Provider: Dr. 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 Anxiety Surgical History (Updated 04/09/25 @ 14:37 by Keisha Toussaint MA) History of breast augmentation History of delivery History of tonsillectomy Family History (Updated 04/09/25 @ 14:48 by Keisha Toussaint MA) Father AA (alcohol abuse) Arthritis Depression Mother Anemia Hypercholesteremia Maternal Grandmother Ovarian cancer Thyroid disorder Uterine cancer Osteoporosis Colon cancer Melanoma CVA (cerebral vascular accident) Hypercholesteremia Maternal Grandfather Myocardial infarction Heart disease Kidney disease Melanoma CVA (cerebral vascular accident) Grandfather Heart disease Sister Severe allergy Social History (Updated 04/09/25 @ 14:50 by Keisha Toussaint MA) adopted: No household members: spouse and children number of children: 2 current occupational status: unemployed pets and animals: No sexually active: Yes Smoking Status: Never smoker alcohol intake: current alcohol intake frequency: holidays/special occasions only details: < 3 in 1 sitting substance use type: does not use caffeine: Yes (1 rain energy 300mg) Type: other what type of physical activity do you participate in: aerobics frequency: 5-6 times per week do you feel safe at home: Yes HPI HPI Chief Complaint: Establish care Details: CECE OSBORNE, is a 40 F who presents to the office today to establish care. Also has some concerns. Chronic history of anxiety and depression with worsening symptoms lately. Following up with pain management and spine Ortho due to chronic back pain/radiculopathy. Had been very active engaging in CrossFit activities to help destress however, following recent events, has not been able to exercise as she would like to. Scored 19 and 17 on the PHQ-9 and ANA LAURA-7 respectively. About 9 years ago, she was on Zoloft which she tolerated well. Discontinued Zoloft after symptoms improved. Plans to establish with SHIRT SORTER shortly. Previously seen at the [facility] however, wants to establish with [facility]. Has been having heavy bleeds lately. An attempt was made at [facility] by her prior SHIRT SORTER however this was unsuccessful. ROS Const Constitutional: No body ache, chills, excessive sweating, fatigue, fever(s), frequent falls, headache(s), snoring, weakness, sleep problems or change in appetite Eyes Eyes: No blurry vision, change in vision, vision loss, dry eyes, eye pain or Light sensitivity ENT ENT: No abnormal hearing, ear or mastoid pain, tinnitus, dizziness/vertigo, nasal congestion, headache(s), neck pain or sore throat Resp Respiratory: No cough, excessive phlegm production, hemoptysis, shortness of breath, snoring or wheezing Cardio Cardiology: No chest pain at rest, chest pain with exertion, excessive sweating, shortness of breath, dyspnea on exertion, lightheadedness, orthopnea or palpitations Gastro GI: No abdominal pain, change in bowel habits, change in stool character, constipation, cramping, diarrhea, nausea/dyspepsia or vomiting Genitourinary-Female: No burning urination, painful urination, urinary incontinence, urinary frequency, abnormal vaginal bleeding or pelvic pain Musc Musculoskeletal: Positive for joint pain, limited range of motion and other; No back pain, neck pain or numbness Skin Skin: No dry skin, redness, lesions, itchy eyes, rash or wounds Neuro Neurology: No abnormal hearing, abnormal speech, behavioral changes, weakness, frequent falls, headache(s), memory loss or numbness Psych Psychiatric: (more content not included)... Normal [facility] - Chemistry and C hemistry - challengeOrdered By: Dominick Earl on 04-09-2025 AST [Catalytic activity/Vol] 17 U/L <32 [facility] MCV (mean corpuscular volume ) determinationOrdered By: Dominick Earl on 04-09-2025 MCV (RBC) [Entitic vol] 89.1 fL 81-99 [facility] Mean corpuscular hemoglobin (MCH) determinationOrdered By: Dominick Earl on 04-09-2025 MCH (RBC) [Entitic mass] 30.6 pg 27.0-32.0 [facility] Mean corpuscular hemoglobin concentration (MCHC) determinationOrdered By: Dominick Earl on 04-09-2025 MCHC (RBC) [Mass/Vol] 34.3 g/dL 32-36 [facility] Mean platelet volume determi nationOrdered By: Dominick Earl on 04-09-2025 Platelet mean volume (Bld) [Entitic vol] 9.3 fL 6.2-12.0 [facility] Monocyte percentageOrdered B y: Dominick Earl on 04-09-2025 Monocytes/100 WBC (Bld) 9.4 % 0-10 [facility] Neutrophil percentageOrdered By: Dominick Earl on 04-09-2025 Neutrophils/100 WBC (Bld) 51.4 % 47-70 [facility] Nucleated red blood cell per centageOrdered By: Dominick Earl on 04-09-2025 Nucleated RBC/100 WBC (Bld) [Ratio] 0 % 0-5 [facility] Platelet countOrdered By: Juliann Earl on 04-09-2025 Platelets (Bld) [#/Vol] 235 10*3/uL 150-450 [facility] Potassium measurement (mass/ volume)Ordered By: Dominick Earl on 04-09-2025 Potassium (Unsp spec) [Mass/Vol] 4.4 mmol/L 3.3-5.1 [facility] RBC Auto (Bld) [#/Vol]Ordere d By: Dominick Earl on 04-09-2025 RBC (Bld) [#/Vol] 4.48 10*6/uL 4.2-5.4 [facility] Serum creatinine measurement (mass/volume)Ordered By: Dominick Earl on 04-09-2025 Creatinine [Mass/Vol] 0.87 mg/dL 0.70-1.20 [facility] Serum globulin measurementOr dered By: Dominick Earl on 04-09-2025 Globulin (S) [Mass/Vol] 2.4 g/dL 2.2-4.2 [facility] Serum glucose measurement (m ass/volume)Ordered By: Dominick Earl on 04-09-2025 Glucose [Mass/Vol] 86 mg/dL 70-99 [facility] Serum or plasma alanine hahn otransferase (ALT) measurementOrdered By: Dominick Earl on 04-09-2025 ALT [Catalytic activity/Vol] 10 U/L <35 [facility] Serum or plasma albumin ef urement (mass/volume)Ordered By: Dominick Earl 04-09-2025 Albumin [Mass/Vol] 4.5 g/dL 3.5-5.0 [facility] Serum or plasma albumin/glob ulin mass ratioOrdered By: Dominick Earl on 04-09-2025 Albumin/Globulin [Mass ratio] 1.9 {ratio} 0.9-2.4 [facility] Serum or plasma alkaline phil sphatase measurementOrdered By: Dominick Earl on 04-09-2025 ALP [Catalytic activity/Vol] 42 U/L 35-104 [facility] Serum or plasma calcium fe urement (mass/volume)Ordered By: Dominick Earl on 04-09-2025 Calcium [Mass/Vol] 9.8 mg/dL 7.6-11.0 [facility] Serum or plasma urea nitroge n measurement (mass/volume)Ordered By: Dominick Earl on 04-09-2025 Urea nitrogen [Mass/Vol] 18 mg/dL 4-19 [facility] Sodium levelOrdered By: Jose Earl on 04-09-2025 Sodium [Moles/Vol] 139 mmol/L 133-145 [facility] T4 Free Directon 04-09-2025 T4 FREE DIRECT 1.30 ng/dL Normal 0.76-1.46 [facility] Comment on above: Performed By: #### L 506.1001, L503.0106, L506.0400, L100.0100, L501.9520, L500.4050 ####[facility] [address] [place], [place], [id number] T4 freeOrdered By: Dominick Earl on 04-09-2025 Free T4 [Mass/Vol] 1.30 ng/dL 0.76-1.46 [facility] TSH DL <= 0.005 mIU/L QnOrde red By: Dominick Earl on 04-09-2025 TSH Qn 1.010 uIU/mL 0.300-4.200 [facility] Thyroid Stim Hormone (TSH)on 04-09-2025 TSH 1.010 uIU/mL Normal 0.300-4.200 [facility] Comment on above: Performed By: #### L 506.1001, L503.0106, L506.0400, L100.0100, L501.9520, L500.4050 #### [facility] [address] [place], [place], [id number] Total proteinOrdered By: Michelet Earl on 04-09-2025 Protein [Mass/Vol] 6.8 g/dL 5.9-8.4 [facility] Vitamin B12on 04-09-2025 Cobalamin (Vitamin B12) [Mass/Vol] 527 pg/mL Normal 180-914 [facility] Comment on above: Performed By: #### L 506.1001, L503.0106, L506.0400, L100.0100, L501.9520, L500.4050 #### [facility] [address] [place], [place], [id number] Vitamin B12 ser/plasOrdered By: Dominick Earl on 04-09-2025 Cobalamin (Vitamin B12) [Mass/Vol] 527 pg/mL 180-914 [facility] Vitamin D,25 Hydroxyon 04-09 Vitamin D 25-OH 42.0 ng/mL Normal 30-100 [facility] Comment on above: Result Comment: Carol min D Status Deficiency: <20 ng/mL (50nmol/L) Insufficiency: 20-30 ng/mL (50-75 nmol/L) Sufficiency: 30-100 ng/mL (75-250 nmol/L) Toxicity: >100 ng/mL (>250 nmol/L) Performed By: #### L 506.1001, L503.0106, L506.0400, L100.0100, L501.9520, L500.4050 ####[facility] [address] [place], [place], [id number] White blood cell (WBC) count Ordered By: Dominick Earl on 04-09-2025 WBC (Bld) [#/Vol] 6.5 10*3/uL 4.4-11.0 [facility] Orthopedic Visit Reporton Orthopedic Visit Report [facility] [address] [place] [address] 5 [place], [place] [address] OFFICE VISIT Date of Service: 03/15/25 MR#: [id number] Acct: [id number] Name: YASCECE Rep #: [id number] : 1985 Provider: Dr. Ernie Preciado MD Age/Sex: 40/F Location: [facility] [place] Status: Signed Intake Vital Signs 01/12/25 08:02 Height 5 ft Intake Visit Reasons: LUMBAR SPINE Chief Complaint: Lumbar Spine Pain Follow-Up Accompanied by: Self Is patient in pain?: Yes Pain scale (1-10): 1 Allergies No Known Allergies Allergy (Verified 03/15/25 13:58) Medications ???Medication ???Instructions ???Recorded ???Confirmed ???Type ibuprofen 400 mg tablet 800 mg (2 x 400 mg) PO Q8H PRN 03/15/25 Rx Pain #40 TABLETS PFSH Surgical History History of breast augmentation History of delivery History of tonsillectomy Family History Other Cancer Heart disease Hypertension Social History household members: spouse and children Smoking Status: Never smoker alcohol intake: current alcohol intake frequency: holidays/special occasions only HPI LUMBAR SPINE Details: This documentation accurately reflects the service provided and the decisions made by me, Dr. Ernie Preciado MD 03/15/25 1710. Part of today???s visit was documented by Elizabeth Mendez ATC and Sherlyn Mcbride RN, acting as scribe. CECE OSBORNE is a 40 year old F here today for lumbar spine pain. Patient had an epidural steroid injection with Dr. Harris a few weeks ago and had a follow-up with him on Wednesday. He told her it does not seem to be nerve pain coming from the lumbar spine so he is going to try a steroid injection into the left hip when she gets back from vacation in March. She states she has noticed some relief from the 6 weeks of physical therapy and the injection. She states the pain, stiffness that she is having is still in the left hip and glute area. She has no pain on the right side. Dr. Harris thinks it is more the muscles/tendons that run down into the hip bone. Dr. Harris prescribed her meloxicam and she was going to cigar packer and picker the prescription today after her appointment. She is now able to sleep on her back and turn from side to side which she was not able to do so before. The weakness in her legs has improved since her last office visit. The patient is a 40-year-old female presenting with gluteal and hip pain. The patient has been undergoing physical therapy for six weeks, experiencing variable results with some days better than others. She received an epidural injection approximately two and a half to three weeks ago, which has helped alleviate some symptoms, allowing her to sleep on her back and change positions in bed without pain. Despite the injection, she continues to experience deep gluteal pain radiating to the side of her hip. Previously, the pain extended down to her foot, causing a sensation of heaviness, but this has improved. The patient reports that walking can lead to fatigue and aching, particularly after activities such as grocery shopping. She has not been walking much recently due to travel commitments and plans to assess her walking tolerance during an upcoming vacation. The patient has a history of lumbar spondylolisthesis at L4-5, contributing to her symptoms. She experiences both arthritic and nerve pain, with the latter improving after the injection. She has reduced her physical activity, including CrossFit, due to exacerbation of symptoms, and currently engages in physical therapy twice a week. - Musculoskeletal: Reports gluteal and hip pain, improved ability to sleep on back and change positions in bed, fatigue and aching after walking. - Neurological: Reports previous heaviness in foot, now improved. Attestation: Documentation on this patient encounter was supported using ambient scribe technology/ voice AI technology. The patient consented to recording for the purpose of documenting the encounter. Provider reviewed content of the generated note prior to signature. Ortho Exam General General: Yes no acute distress Neurologic: Yes alert and Yes oriented x3 Psychologic: Yes reasonable and appropriate Spine SPINE TESTING CERVICAL THORACIC LUMBAR Musculoskeletal Strength 0=absent - 5=normal Details: Examination the back shows midline and left paraspinal tenderness. Neurologic evaluation of lower extremity shows 5 x 5 power in all muscle except for left ankle dorsiflexion which is grade 4+. Passive straight leg raise test is positive on the left. Figure 4 test is positive on the left. There is no hyperreflexia lower extremities. Exam Narrative - Musc (more content not included)... Normal [facility] Inital Evaluation (1) - PTon 02-09-2025 Inital Evaluation (1) - PT [facility] [address] [place] [address] / REHABILITATION SERVICES INITIAL EVALUATION MR#: [id number] Acct: [id number] Name: CECE OSBORNE Rep #: [id number] : 1985 39 From: Kris Rothman DPT, OCS, CSCS Referring Dr.: Dr. Ernie Preciado MD Status: REG RCR Insurance: [employer] INSURANCE Patient's Visit Information Visit Information Visit Information: CECE OSBORNE is a 39 year old F referred to Physical Therapy by Dr. Ernie Preciado MD with a diagnosis of Spondylolisthesis, spondylolysis.. Date of Evaluation: 02/09/25 Physical Therapist: Kris Rothman DPT, OCS, CSCS Visit Plan Frequency: 2x /Week Duration: 4-6 Weeks Plan: 2x/week for 3-6 weeks IE HEP sitting posture with towel roll, activity modification for instability adn spondylolisthesis, avoid sitting excessively, other exercises to ry in the gym(back still) treat with core strength and hip strength eemphasizing core stability to HEP quickly with pics, find aggressive general ex that she tolerates(core stable) to get her back to workout, end range flexion ROM exercises to tolerance. quad psoas stretches rollout. ice and TENS as needed. start with 3 weeks and pt to get second opinion on surgery adn see pain management next week. Subjective Subjective: L hip pain was start and worked on stretching, chiropractor did not help. X rays hips were fine. sent to [facility] for LB. Pain has been off and on for yars. but episode last fall was very bad and hard to lift leg. Then relieved. started again 3 months. Crossfitteer but not lately, not picked up katelyn in 3 months, back spasms, hip pain laterally are main symtoms and L leg gets stiff. sitting in chair gets stiff in L leg and makes it hard to stand and walk. No numbness or tingling. Sleeping is interrupted, rolling in bed is not comfortable, Sometimes hard to lie on back. Gets out of bed gingerly. 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 Take care of kids 11 adn 9. Run them to sports, has had to avoid wrestling and playing sports with them. Pain L hip: Pain Intensity (Out of 10): 2 Pain Intensity Range: 0 and 9 Comment: sitting at ball games Objective Objective: Walks into PT I and trasnfeers I, hesitant on table rolls. Lumbar AROM ext is full and painful L, flexion is painful L LB and hesitant, SB are symmeetrical. rflexes 2/3 patella and achilles Sensation LE WNL to gross lgiht touch. Streength LE without myotomal probleems today, unstable with seated hip tsting in hips and spine. 3+ core strenght abd and ext, 3+ hip abd and ext adn rotation B. knee and ankles 5/5 + SLR L and = Slump L. Reepeated extension NE on symptoms, pt comfortable at rest today. Balance/Special Test Scores Oswestry Low Back Score: 26 Goals Goal 1:: pain in LB and L hip 80% better and 1/10 at worst. Goal Time Frame: 4-6 Weeks Goal 2:: Full aROM L/S without pain or hesitation. Goal Time Frame: 4-6 Weeks Goal 3:: sleep without interruption at night. Goal Time Frame: 4-6 Weeks Goal 4:: bed trasnfers without pain. Goal Time Frame: 4-6 Weeks Goal 5:: return to compreheensive workout without pain Goal Time Frame: 4-6 Weeks Goal 6:: oswestry score 8 or better Goal Time Frame: 4-6 Weeks Rehabilitation Potential Physical Therapy Diagnosis: pain and weakness limiting comfortable funciton Rehabilitation Potential: Fair Anticipated Interventions Patient/Client Instruction: Educate patient on: Condition and Plan of Care For the Purpose of:: To decrease pain, To increase ROM, To improve nutrient delivery to tissue, To improve muscle performance and motor function and To increase tolerance to activity/condition/po sition Therapeutic Exercise to Include: Strength training, Postural training, Flexibilty training, Active ROM and Dynamic Lumbar Stabilization For the Purpose of:: To decrease pain, To increase ROM, To improve nutrient delivery to tissue, To improve muscle performance and motor function, To increase tolerance to activity/condition/po sition, To improve ability of physical actions for home/community/work/l eisure and To improve gait and locomotor functions Manual Therapy Techniques to Include: Soft tissue mobilization For the Purpose of:: To improve nutrient delivery to tissue TENS: Yes Cryotherapy (ice pack, ice massage): Yes For the Purpose of:: To decrease pain, To decrease swelling/inflammation and To improve nutrient delivery to tissue Text: Thank you for the opportunity to evaluate your patient. For Medicare and Medicare HMO plans, please review the plan of care and approve it. It will need to be FAXED BACK to us at [phone] for Medicare purposes. For Medicare only, by signing this I certify the plan of care. Please let me know if there are questions or (more content not included)... Normal [facility] L/S Spine Bending Flex/Shelby 02-02-2025 L/S Spine Bending Flex/Ext [facility] Imaging Services [address] [place], [place] [id number] L/S Spine Bending Flex/Ext MR#: [id number] Acct: [id number] Name: CECE OSBORNE Rep #: [id number] : 1985 F 39 From: Paco Arevalo MD PCP: Dr. Dominick Earl MD Status: REG CLI Study: L/S Spine Bending Flex/Ext Date of Exam: 02/02 Exam# [id number] Ordering Dr: Ernie Preciado MD EXAM: XR Lumbosacral Spine Flexion/Extension Only, 2 or 3 Views CLINICAL INDICATION: LUMBAR SPINE PAIN TECHNIQUE: Lateral flexion/extension views of the lumbar spine and sacrum. COMPARISON: No relevant prior studies available. FINDINGS: VERTEBRAE: Anterior spondylolisthesis of L4 over L5 by 6 mm on extension and 11 mm on flexion suggesting dynamic instability. Moderate facet arthropathy of L4-S1. No acute fracture. SACRUM/COCCYX: Unremarkable as visualized. No acute fracture. DISC SPACES: No acute findings. No significant narrowing. SOFT TISSUES: Unremarkable. RAD/L/S Spine Bending Flex/Ext IMPRESSION: Anterior spondylolisthesis of L4 over L5 by 6 mm on extension and 11 mm on flexion suggesting dynamic instability. Reading Location: [facility] CC: Dr. Ernie Preciado MD; Dr. Dominick aErl MD Lead Process Engineer: Signed Normal [facility] Orthopedic Visit Reporton Orthopedic Visit Report [facility] [facility] [address] [place] [address] OFFICE VISIT Date of Service: 02/02/25 MR#: [id number] Acct: [id number] Name: CECE OSBORNE Rep #: [id number] : 1985 Provider: Dr. Ernie Preciado MD Age/Sex: 39/F Location: [facility] [place] Status: Signed Intake Vital Signs 01/12/25 08:02 Height 5 ft Weight: 133 lb BMI 25.9 Intake Visit Reasons: LUMBAR SPINE Chief Complaint: lumbar MRI Is patient in pain?: Yes (low back/ left hip ) Pain scale (1-10): 5 Allergies No Known Allergies Allergy (Verified 02/02/25 08:42) Medications ???Medication ???Instructions ???Recorded ???Confirmed ???Type ibuprofen 400 mg tablet 800 mg (2 x 400 mg) PO Q8H PRN 02/02/25 Rx Pain #40 TABLETS etodolac 500 mg tablet 500 mg PO BID PRN pain #30 tabs 02/02/25 Rx PFSH Surgical History History of breast augmentation History of delivery History of tonsillectomy Family History Other Cancer Heart disease Hypertension Social History household members: spouse and children Smoking Status: Never smoker alcohol intake: current alcohol intake frequency: holidays/special occasions only HPI LUMBAR SPINE Chief Complaint: lumbar MRI review Details: This documentation accurately reflects the service provided and the decisions made by me, Dr. Ernie Preciado MD 02/02/25 0840. Part of today???s visit was documented by Sherlyn Mcbride RN, acting as scribe. CECE OSBORNE is a 39 year old F here today for lumbar spine MRI review. She reports a three month history of lumbar spine pain that started in her hips. She did see Dr. Hollis and the hip was ruled out as the cause of her pain. She complains of lumbar spine pain that extends down the left lateral side of the hip and thigh. She does not have trouble walking long distances but she does have trouble standing up from chairs if there are no handles to use. She does put her favian on the right side which helps decrease her pain. She can walk around the grocery store but she states it is very painful. She does exercise but has not been able to for the last month. Standing for long periods does increase the left leg pain. The pain does interfere with some of her daily activities, such as putting her pants on, crossing her legs and tying her shoe laces. After she walks for long periods she feels as though her left lag drops and drags. She has not had any spinal surgeries and has not seen pain management or had injections in her back. She has received health careers instructor including adjustments and dry needling. She has not done PT. She is very active and is not able to do the things that she likes to do which is very frustrating for her. Ortho Exam General General: Yes no acute distress Neurologic: Yes alert Psychologic: Yes reasonable and appropriate Spine SPINE TESTING CERVICAL THORACIC LUMBAR Musculoskeletal Strength 0=absent - 5=normal Details: Examination the back shows midline and left paraspinal tenderness. Neurologic evaluation of lower extremity shows 5 x 5 power in all muscle except for left ankle dorsiflexion which is grade 4+. Passive straight leg raise test is positive on the left. Figure 4 test is positive on the left. There is no hyperreflexia lower extremities. Coding Level of Care Code Off vis,est,level 4 Diagnoses Spondylolisthesis, lumbar region M43.16 Spinal stenosis of lumbar region with neurogenic claudication M48.062 Time Spent (min) 35 Assessment and Plan Assessment and Plan (1) Spondylolisthesis, lumbar region: Status: Acute (2) Spinal stenosis of lumbar region with neurogenic claudication: Status: Acute Orders: Orders L/S Spine Bending Flex/Ext Today M43.16 - Spondylolisthesis, lumbar region Referrals Pain Management M43.06 - Spondylolysis, lumbar region, M43.16 - Spondylolisthesis, lumbar region PT Referral M43.06 - Spondylolysis, lumbar region, M43.16 - Spondylolisthesis, lumbar region Plan I reviewed pt's outside MRI in detail with patient. We also reviewed previously done x-rays and repeated bending x-rays today in the clinic. These show L4-5 grade 1/2 spondylolisthesis with severe dynamic instability going from grade 2 to grade 1 on extension view. There is severe lateral recess and foraminal stenosis bilaterally worse on the left in the MRI. The MRI shows stenosis and spondylolisthesis at L4-5. Patient has significant axial referred pain towards the posterior lateral hip on the left and also has developed mild weakness in the left foot. Discussed treatment options including continued nonoperative measures versus surgery. (more content not included)... Normal [facility] MR Lumbar spine WO contrasto n 01-25-2025 IMPRESSION: Lumbar spondylosis as described worst at L4-5 with mild to moderate canal narrowing. Anatomic Lumbar Variant: None. L4-5 is considered the level of the iliac crest and assume there are 5 lumbar-type vertebrae. Lead Process Engineer: JUANY Transcribe Date/Time: Jan 25 2025 12:44P Dictated by : REGAN LANDERS MD This examination was interpreted and the report reviewed and electronically signed by: REGAN LANDERS MD on Jan 25 2025 12:47PM [facility] DIVISION OF RADIOLOGY * * *Final Report* * * DATE OF EXAM: Jan 25 2025 12:20PM [facility] 0303 - MRI LUMBAR SPINE WO IVCON / PROCEDURE REASON: lumbar wo * * * * Physician Interpretation * * * * EXAMINATION: MRI LUMBAR SPINE WO IVCON CLINICAL HISTORY: lumbar wo TECHNIQUE: Routine lumbosacral spine MR protocol without gadolinium. MQ: MRLSPWO_3 COMPARISON: None. RESULT: Counting reference: Lumbosacral junction. For the purposes of this report, L4-5 is considered the level of the iliac crest and assume there are 5 lumbar-type vertebrae. Anatomic variant: None. Localizer images: No significant findings. Alignment: Grade 1 degenerative anterolisthesis of L4-5. Alignment is otherwise anatomic. Bone marrow signal/fracture: No evidence of pathologic marrow infiltration. No evidence of prior fracture. Conus: The conus is within normal limits of signal intensity and morphology. Paraspinal soft tissues: Paraspinal soft tissues are within normal limits. T10-T11 and T11-T12: Visualized lower thoracic canal and foramina are patent. L1-L2: Canal and foramina are patent. Disc degeneration with mild diffuse disc bulge. L2-L3: Canal and foramina are patent L3-L4: Canal and foramina are patent. Mild facet arthropathy. L4-L5: There is disc degeneration with diffuse disc bulge and facet arthropathy causing mild to moderate canal narrowing and mild/moderate bilateral foraminal stenosis. L5-S1: Canal and foramina are patent. Mild facet arthropathy. Sacrum and iliac wings: The visualized sacrum and iliac wings are within normal limits. DIVISION OF RADIOLOGY Provider, [facility] - 01/25/2025 * * *Final Report* * * DATE OF EXAM: Jan 25 2025 12:20PM [facility] 0303 - MRI LUMBAR SPINE WO IVCON / PROCEDURE REASON: lumbar wo * * * * Physician Interpretation * * * * EXAMINATION: MRI LUMBAR SPINE WO IVCON CLINICAL HISTORY: lumbar wo TECHNIQUE: Routine lumbosacral spine MR protocol without gadolinium. MQ: MRLSPWO_3 COMPARISON: None. RESULT: Counting reference: Lumbosacral junction. For the purposes of this report, L4-5 is considered the level of the iliac crest and assume there are 5 lumbar-type vertebrae. Anatomic variant: None. Localizer images: No significant findings. Alignment: Grade 1 degenerative anterolisthesis of L4-5. Alignment is otherwise anatomic. Bone marrow signal/fracture: No evidence of pathologic marrow infiltration. No evidence of prior fracture. Conus: The conus is within normal limits of signal intensity and morphology. Paraspinal soft tissues: Paraspinal soft tissues are within normal limits. T10-T11 and T11-T12: Visualized lower thoracic canal and foramina are patent. L1-L2: Canal and foramina are patent. Disc degeneration with mild diffuse disc bulge. L2-L3: Canal and foramina are patent L3-L4: Canal and foramina are patent. Mild facet arthropathy. L4-L5: There is disc degeneration with diffuse disc bulge and facet arthropathy causing mild to moderate canal narrowing and mild/moderate bilateral foraminal stenosis. L5-S1: Canal and foramina are patent. Mild facet arthropathy. Sacrum and iliac wings: The visualized sacrum and iliac wings are within normal limits. IMPRESSION IMPRESSION: Lumbar spondylosis as described worst at L4-5 with mild to moderate canal narrowing. Anatomic Lumbar Variant: None. L4-5 is considered the level of the iliac crest and assume there are 5 lumbar-type vertebrae. Lead Process Engineer: JUANY Transcribe Date/Time: Jan 25 2025 12:44P Dictated by : REGAN LANDERS MD This examination was interpreted and the report reviewed and electronically signed by: REGAN LANDERS MD on Jan 25 2025 12:47PM EST [facility] Radiology Study observation (narrative) [facility] MR Lumbar spine WO contrastO rdered By: [facility] Provider on 01-25-2025 [facility] MRI LUMBAR SPINE WO IVCONon 01-25-2025 MRI LUMBAR SPINE WO IVCON * * *Final Report* * * DATE OF EXAM: Jan 25 2025 12:20PM [facility] 0303 - MRI LUMBAR SPINE WO IVCON / PROCEDURE REASON: lumbar wo * * * * Physician Interpretation * * * * EXAMINATION: MRI LUMBAR SPINE WO IVCON CLINICAL HISTORY: lumbar wo TECHNIQUE: Routine lumbosacral spine MR protocol without gadolinium. MQ: MRLSPWO_3 COMPARISON: None. RESULT: Counting reference: Lumbosacral junction. For the purposes of this report, L4-5 is considered the level of the iliac crest and assume there are 5 lumbar-type vertebrae. Anatomic variant: None. Localizer images: No significant findings. Alignment: Grade 1 degenerative anterolisthesis of L4-5. Alignment is otherwise anatomic. Bone marrow signal/fracture: No evidence of pathologic marrow infiltration. No evidence of prior fracture. Conus: The conus is within normal limits of signal intensity and morphology. Paraspinal soft tissues: Paraspinal soft tissues are within normal limits. T10-T11 and T11-T12: Visualized lower thoracic canal and foramina are patent. L1-L2: Canal and foramina are patent. Disc degeneration with mild diffuse disc bulge. L2-L3: Canal and foramina are patent L3-L4: Canal and foramina are patent. Mild facet arthropathy. L4-L5: There is disc degeneration with diffuse disc bulge and facet arthropathy causing mild to moderate canal narrowing and mild/moderate bilateral foraminal stenosis. L5-S1: Canal and foramina are patent. Mild facet arthropathy. Sacrum and iliac wings: The visualized sacrum and iliac wings are within normal limits. IMPRESSION: Lumbar spondylosis as described worst at L4-5 with mild to moderate canal narrowing. Anatomic Lumbar Variant: None. L4-5 is considered the level of the iliac crest and assume there are 5 lumbar-type vertebrae. Lead Process Engineer: PSCB Transcribe Date/Time: Jan 25 2025 12:44P Dictated by : REGAN LANDERS MD This examination was interpreted and the report reviewed and electronically signed by: REGAN LANDERS MD on Jan 25 2025 12:47PM EST [id number] Normal [facility] HIP, UNI W/ Pelvis 2-3 Views on 01-12-2025 HIP, UNI W/ Pelvis 2-3 Views [facility] Imaging Services [address] [place] [id number] HIP, UNI W/ Pelvis 2-3 Views MR#: [id number] Acct: [id number] Name: CECE OSBORNE Rep #: [id number] : 1985 F 39 From: Tesfaye Rodriguez MD PCP: Status: DEP AMB Study: HIP, UNI W/ Pelvis 2-3 Views Date of Exam: 11/07 Exam# [id number] Ordering Dr: Rashawn Hollis DO PROCEDURE: HIP, UNI W/ PELVIS 2-3 VIEWS 01/12/2025 REASON FOR EXAM: ACUTE LEFT HIP PAIN, NKI TECHNIQUE: AP pelvis and two views of the left hip, 3 total images COMPARISON: None available FINDINGS: No fracture or dislocation. Symmetric appearing SI joints and pubic symphysis appear within limits. Lower lumbar facet degenerative changes, spondylosis noted. The left hip joint space appears within limits. RAD/HIP, UNI W/ Pelvis 2-3 Views IMPRESSION: No fracture or dislocation. Lower lumbar facet degenerative changes, spondylosis noted. Reading Location: [facility] CC: Dr. Rashawn Hollis DO Lead Process Engineer: Signed Normal [facility] Lumbar Spine 2 or 3 Viewson 01-12-2025 Lumbar Spine 2 or 3 Views [facility] Imaging Services [address] [place], [place] [address] Lumbar Spine 2 or 3 Views MR#: [id number] Acct: [id number] Name: CECE OSBORNE Rep #: [id number] : 1985 F 39 From: Tesfaye Rodriguez MD PCP: Status: DEP AMB Study: Lumbar Spine 2 or 3 Views Date of Exam: Exam# [id number] Ordering Dr: Rashawn Hollis DO PROCEDURE: LUMBAR SPINE 2 OR 3 VIEWS 01/12/2025 REASON FOR EXAM: ACUTE LEFT HIP PAIN, NKI TECHNIQUE: 2 view(s) of the lumbar spine COMPARISON: None available FINDINGS: 5 [id number] lumbar vertebral type bodies identified. No fracture identified although would be difficult to exclude possible spondylolysis at L4 without oblique views or cross-sectional imaging. Approximately 5 mm of anterolisthesis L4 on L5 with associated moderate disc space narrowing. The other disc spaces appear within limits. L4 through S1 facet degenerative changes noted.. RAD/Lumbar Spine 2 or 3 Views IMPRESSION: No fracture identified although would be difficult to exclude possible spondylolysis at L4 without oblique views or cross-sectional imaging. Approximately 5 mm of anterolisthesis L4 on L5 with associated moderate disc space narrowing. L4 through S1 facet degenerative changes noted. Reading Location: [facility] CC: Dr. Rashawn Hollis DO Lead Process Engineer: Signed Normal [facility] Orthopedic Visit Reporton Orthopedic Visit Report [facility] [address] [place] [address] [address] [place] [address] OFFICE VISIT Date of Service: 01/12/25 MR#: [id number] Acct: [id number] Name: CECE OSBORNE Rep #: [id number] : 1985 Provider: Dr. Rashawn may DO Age/Sex: 39/F Location: [facility] [place] Status: Signed with Addenda ADDENDUM by Dr. Rashawn Hollis DO on 01/12/25 at 0851 Assessment and Plan Assessment and Plan (1) Spondylolysis of lumbar region: Status: Acute (2) Spondylolisthesis: Status: Acute Qualifiers: Spinal region: lumbar Qualified Code(s): M43.16 - Spondylolisthesis, lumbar region Comment: . Orders: Orders HIP, UNI W/ Pelvis 2-3 Views Today M25.552 - Pain in left hip Lumbar Spine 2 or 3 Views Today M25.552 - Pain in left hip Spine Lumbar (Routine) Today M43.06 - Spondylolysis, lumbar region Medications: New etodolac Do not take in conjunction with ibuprofen or other NSAID. 500 mg PO BID PRN 30 tabs 0RF pain Discontinued oxycodone-acetaminoph en 5-325 mg Discontinued Reason: Pt no longer taking 1 - 2 tabs PO Q4H PRN PRN 30 tabs 0RF Pain citalopram Discontinued Reason: Pt no longer taking 10 mg PO DAILY 30 TABLETS 12RF 01/12/25 0851 Date Rashawn Hollis DO cc: Dr. Ernie Preciado MD * Signed Intake Vital Signs 01/05/25 15:55 01/12/25 08:02 Height 5 ft 5 ft Weight: 133 lb BMI 25.9 Intake Visit Reasons: LEFT HIP Chief Complaint: Left Hip Pain Accompanied by: Self Is patient in pain?: Yes Pain scale (1-10): 7 Allergies No Known Allergies Allergy (Verified 01/12/25 08:03) Medications ???Medication ???Instructions ???Recorded ???Confirmed ???Type ibuprofen 400 mg tablet 800 mg (2 x 400 mg) PO Q8H PRN 01/12/25 Rx Pain #40 TABLETS etodolac 500 mg tablet 500 mg PO BID PRN pain #30 tabs 01/12/25 Rx PFSH Surgical History (Updated 01/12/25 @ 08:04 by Elizabeth Mccabe) History of breast augmentation History of delivery History of tonsillectomy Family History (Updated 01/12/25 @ 08:05 by Elizabeth Mccabe) Other Cancer Heart disease Hypertension Social History household members: spouse and children Smoking Status: Never smoker alcohol intake: current alcohol intake frequency: holidays/special occasions only HPI LEFT HIP Details: This documentation accurately reflects the service provided and the decisions made by me, Dr. Rashawn Hollis, DO 01/12/25 0733. Part of today???s visit was documented by Elizabeth Mendez ATC, acting as scribe. CECE OSBORNE is a 39 year old F with medical history significant for but not limited to anxiety depression mood disorder here today for left hip pain. Patient states the hip has been bothering her for the past 4 weeks nonstop. She states in the fall she had a similar but slightly different incident that lasted 2 weeks. In the fall the pain was all the way down into the leg and she was able to stretch and relieve the pain. She describes the pain in the posterior hip and into the buttocks. no groin pain. Lumbar flexion and extension aggravate her symptoms. she does crossfit about 4 times a week but now with the pain she can barely go 2-3 times. She states it feels achy in the joint and she has pain in the glute. She will get spasms that start in the glutes and move up the lumbar spine. She denies any pain down into the leg currently. She will occasionally feel pain down into the IT band. She has been stretching as much as she can. She has been trying to bike and rowing machine at the gym. She has been going to the chiropractor for adjustments and they did try dry needling but it caused more pain. She denies any surgery. She states the pain started as an achy joint pain in the lateral sided hip. She denies any trauma to the area or the lumbar spine. She denies any numbness, tingling or burning down the leg. Ortho Exam General General: Yes no acute distress and Yes well groomed Neurologic: Yes alert and Yes oriented x3 Psychologic: Yes reasonable and appropriate Left Hip Skin/Wound: Yes CDI, No Ecchymosis, No soft tissue swelling and No Erythema Hip: Absent eccymosis, soft tissue swelling, erythema or tender to palpate - Special Tests: Yes RROM flexion pain (Not in the groin but on the low back); No IT band snap or TTP [place] HIP: internal rotation in her legs made the pain worse on the backside no masses lumbar flexion decreased lumbar extension decreased causes spasms IR 50 with no groin pain ER 60 with no groin pain + straight leg raise in the hip with mild pain shooting down the leg She has an antalgic gait She does have some weakness in the left leg but this may be secondary to pain intact sensation light touch Supplem (more content not included)... Normal [facility] CNOVon 02-15-2024 CNOV Office Visit (OBGYWM ) CECE OSBORNE ([id number]) 1985 F Date Time Provider Department 02/15/24 9:30 AM [facility] OBGYWM During your visit today, we recorded the following information about you: Blood pressure Weight Last Period 9060 57.7 kg 01/21/24 Cierar Pagan APRN.[employer]IN COUNTER AND WRAPPER 02/15/2024 10:25 AM Signed Security Guards Dispatcher offered: Patient declines. Locke presents today for IUD insertion for menstrual dysfunction. Patient's last menstrual period was 01/21/2024. GC/chlamydia: Not done: no risk factors and/or patient declines screening test: negative Side effects including irregular bleeding were discussed with the patient. The patient understands that it should be removed in 8 years or sooner if the patient desires a . IUD source: office provided IUD lot #: [id number] Exp date: [facility]: [id number] UNIVERSAL PROTOCOL / SAFETY CHECKLIST Procedure to be Performed: Mirena insertion Sign In: A Moment of CARE was completed. Personnel directly involved with the procedure wore the appropriate PPE (Personal Protective Equipment). Patient/Surrogate Stated/Verified: PATIENT VERIFIED(optional for EMERGENT procedures): Patient name, Date of , Relevant allergies, and The intended procedure Time Out Communication: Intended patient and procedure match the source documents. Consent documented and matches the intended procedure. Sign Out: SIGN OUT (optional for EMERGENT procedures): No specimen collected. All instruments, equipment, possible retained foreign bodies accounted for. Post-procedure follow-up management communicated and Plan of Care Visit completed when applicable. The cervix was prepped with betadine. The uterus sounded to 6 cm and the uterus is Retroverted.. Unable to insert IUD due to the uterus size Patient tolerated procedure well. PLAN: Patient was advised to observe for signs and symptoms of infection including but not limited to fever, malodorous vaginal discharge and/or pain. The patient was told to check the string monthly for accurate placement. Bleeding expectations were reviewed. ASSESSMENT/PLAN: 1. Encounter for IUD insertion - ICD9: V25.11, ICD10: Z30.430 - INSERT INTRAUTERINE DEVICE- Kyleena Pt to reschedule insertion with next menses and was given Cytotec to use prior to the procedure. Cierra Pagan APRN.Yessenia Hollis LPN 02/15/2024 9:30 AM Signed POST IUD INSTRUCTIONS You may have irregular bleeding during the first 3 months of use. You may have mild-severe cramping for the next 48 hours. You may use over the counter medication (Motrin, Tylenol) as needed. Your IUD must be removed or replaced based on the following table: IUD Type Removed or replaced within: Kimberlyn 3 years Kyleena 5 years Mirena 8 years Liletta 8 years Paragard 10 years Call the office for signs/symptoms of infection such as severe cramping, fever, or unusual bleeding. Check for string placement as instructed by your doctor. If you have any additional questions, please contact the office. Referring Provider: DORA RENDON [[id number]] Allergies As of Date: 02/15/2024 (No Known Allergies) Date Reviewed: 02/15/2024 Reviewed by: Yessenia Wilson LPN - Fully Assessed Reason for Visit: Insertion Of IUD [291] Insertion Of IUD [291] Primary Visit Diagnosis:Encounter for IUD insertion [Z30.430] Order(s):UA DIP,URINE HCG (POC) [[id number]] Order #: [id number]. #:[id number] miSOPROStol (CYTOTEC) 200 mcg tabletUse 2 tablets vaginally as directed. The night before the procedure and the morning of the procedure.Disp: 4 tabletRfl: 0 INSERT INTRAUTERINE DEVICE [[id number]] Order #: [id number] Prescriptions as of 02/15/2024 - miSOPROStol (CYTOTEC) 200 mcg tablet Use 2 tablets vaginally as directed. The night before the procedure and the morning of the procedure. - albuterol HFA (PROAIR HFA) 90 mcg/actuation inhaler Inhale 2 Puffs as instructed every 6 hours as needed. 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 You may have mild-severe cramping for the next 48 hours. You may use over the counter medication (Motrin, Tylenol) as needed. Your IUD must be removed or repl (more content not included)... Normal [facility] 02-15-2024 [facility] CECE OSBORNE ([id number]) 1985 F Date Time Provider Department 02/15/24 DORA RENDON OBGYWM During your visit today, we recorded the following information about you: Mica Fisher 02/15/2024 10:22 AM Signed Pt was seen in office today and would like to talk with you over phone. Pt stated that she didn't want to schedule any further appointments until discussing it with you. I advised the patient to send a [employer] message to you and I also said I would send you a message as well. Thank you. Dora Rendon MD 02/17/2024 7:28 AM Signed Please clarify what patient needs. Mahnaz Vegas RN 02/17/2024 9:54 AM Signed See 02/16/24 mychart message. Patient read it and aware to send [employer] message with questions. She saw RM 02/14 and Mirena was unable to be inserted d/t uterus size. She was going to return for Kyleena insertion. Mahnaz Vegas RN Allergies As of Date: 02/15/2024 (No Known Allergies) Date Reviewed: 02/15/2024 Reviewed by: Yessenia Wilson LPN - Fully Assessed Reason for Visit: Patient Update [1234] Prescriptions as of 2024 - miSOPROStol (CYTOTEC) 200 mcg tablet Use 2 tablets vaginally as directed. The night before the procedure and the morning of the procedure. - albuterol HFA (PROAIR HFA) 90 mcg/actuation inhaler Inhale 2 Puffs as instructed every 6 hours as needed. 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] 01/20/2017 07/02/2018 Encounter Status:Closed by MICA FISHER on 02/24/24 Normal [facility] UA DIP,URINE HCG (POC)on Beta HCG ( test) Ql (U) Negative Negative [facility] Comment on above: Location:[facility], [address], [place], [address] 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) Internal QC [facility] Location:[facility], [address], [place], [address] [facility] POINT OF CARE [facility] US [facility] 01-26-2024 [facility]ison 01-19-2024 Radiology Study observation (narrative) [facility] CBC panel Auto (Bld)on 12-23 Erythrocyte distribution width (RBC) [Ratio] 12.4 % 11.5 - 15.0 % [facility] Hematocrit (Bld) [Volume fraction] 41.2 % 36.0 - 46.0 % [facility] Hemoglobin (Bld) [Mass/Vol] 14.0 g/dL 11.5 - 15.5 g/dL [facility] MCH (RBC) [Entitic mass] 30.8 pg 26. 0 - 34.0 pg [facility] MCHC (RBC) [Mass/Vol] 34.0 g/dL 30.5 - 36.0 g/dL [facility] MCV (RBC) [Entitic vol] 90.7 fL 80.0 - 100.0 fL [facility] Nucleated RBC (Bld) [#/Vol] <0.01 k/uL [facility] Platelet mean volume (Bld) [Entitic vol] 9.3 fL 9.0 - 12.7 fL [facility] Platelets (Bld) [#/Vol] 252 10*3/uL 150 - 400 k/uL [facility] RBC (Bld) [#/Vol] 4.54 10*6/uL 3.90 - 5.2 0 m/uL [facility] WBC (Bld) [#/Vol] 8.89 10*3/uL 3.70 - 11. 00 k/uL [facility] XR Chest PA and Lateralon 08 -02-2023 IMPRESSION: No acute radiographic abnormality. Lead Process Engineer: JUANY Transcribe Date/Time: Apr 14 2023 11:38A Dictated by : SHARYN ALVARADO MD This examination was interpreted and the report reviewed and electronically signed by: SHARYN ALVARADO MD on Apr 14 2023 11:38AM [facility] DIVISION OF RADIOLOGY * * *Final Report* * * DATE OF EXAM: Apr 14 2023 11:36AM WOX [id number] - XR CHEST 2V FRONTAL/LAT / PROCEDURE REASON: Bronchitis * * * * Physician Interpretation * * * * EXAMINATION: CHEST RADIOGRAPH (2 VIEW FRONTAL & LATERAL) CLINICAL HISTORY: Bronchitis MQ: XC2_6 EXAM DATE/TIME: 04/14/2023 11:36 AM COMPARISON: No relevant prior studies available. RESULT: Lines, tubes, and devices: None. Lungs and pleura: No consolidation. No lung mass. No pleural effusion. No pneumothorax. Cardiomediastinal silhouette: Normal cardiomediastinal silhouette. Bones and soft tissues: Mild degenerative changes. DIVISION OF RADIOLOGY Provider, [facility] - 04/14/2023 * * *Final Report* * * DATE OF EXAM: Apr 14 2023 11:36AM WOX [id number] - XR CHEST 2V FRONTAL/LAT / PROCEDURE REASON: Bronchitis * * * * Physician Interpretation * * * * EXAMINATION: CHEST RADIOGRAPH (2 VIEW FRONTAL & LATERAL) CLINICAL HISTORY: Bronchitis MQ: XC2_6 EXAM DATE/TIME: 04/14/2023 11:36 AM COMPARISON: No relevant prior studies available. RESULT: Lines, tubes, and devices: None. Lungs and pleura: No consolidation. No lung mass. No pleural effusion. No pneumothorax. Cardiomediastinal silhouette: Normal cardiomediastinal silhouette. Bones and soft tissues: Mild degenerative changes. IMPRESSION IMPRESSION: No acute radiographic abnormality. Lead Process Engineer: JUANY Transcribe Date/Time: Apr 14 2023 11:38A Dictated by : SHARYN ALVARADO MD This examination was interpreted and the report reviewed and electronically signed by: SHARYN ALVARADO MD on Apr 14 2023 11:38AM [facility] Radiology Study observation (narrative) Brittni jane [facility] XR Chest PA and LateralOrder ed By: [facility] Provider on 04-14-2023 [facility] Vital Signs Date Time Vital Sign Value Performing Clinician Facility 05-01-2025 12:29-0400 Body height 152.[address] Ernie Preciado MD Work Phone: [facility] 05-01-2025 12:29-0400 Body mass index (BMI) [Ratio] 24.1 kg/m2 Dr. Ernie Preciado MD Work Phone: [facility] 05-01-2025 12:29-0400 Body temperature 96.1 [degF] Dr. Ernie Preciado MD Work Phone: [facility] 05-01-2025 12:29-0400 Body weight 56.[address] Ernie Preciado MD Work Phone: [facility] 05-01-2025 12:29-0400 Diastolic blood pressure 70 mm[Hg] Dr. Ernie Preciado MD Work Phone: [facility] 05-01-2025 12:29-0400 Heart rate 91 /min Dr. Ernie Preciado MD Work Phone: [facility] 05-01-2025 12:29-0400 Respiratory rate 16 /min Dr. Ernie Preciado MD Work Phone: [facility] 05-01-2025 12:29-0400 SaO2% (BldA) [Mass fraction] 98 % Dr. Ernie Preciado MD Work Phone: [facility] 05-01-2025 12:29-0400 Systolic blood pressure 118 mm[Hg] Dr. Ernie Preciado MD Work Phone: [facility] 04-09-2025 14:55-0400 Body height 152.[address] Ernie Preciado MD Work Phone: [facility] 04-09-2025 14:55-0400 Body mass index (BMI) [Ratio] 24.6 kg/m2 Dr. Ernie Preciado MD Work Phone: [facility] 04-09-2025 14:55-0400 Body temperature 98 [degF] Dr. Ernie Preciado MD Work Phone: [facility] 04-09-2025 14:55-0400 Body weight 57.[address] Ernie Preciado MD Work Phone: [facility] 04-09-2025 14:55-0400 Diastolic blood pressure 58 mm[Hg] Dr. Ernie Preciado MD Work Phone: [facility] 04-09-2025 14:55-0400 Heart rate 76 /min Dr. Ernie Preciado MD Work Phone: [facility] 04-09-2025 14:55-0400 Respiratory rate 16 /min Dr. Ernie Preciado MD Work Phone: [facility] 04-09-2025 14:55-0400 SaO2% (BldA) [Mass fraction] 98 % Dr. Ernie Preciado MD Work Phone: [facility] 04-09-2025 14:55-0400 Systolic blood pressure 106 mm[Hg] Dr. Ernie Preciado MD Work Phone: [facility] 01-12-2025 08:02-0400 Body height 152.[address] Ernie Preciado MD Work Phone: [facility] 01-12-2025 08:02-0400 Body mass index (BMI) [Ratio] 25.9 kg/m2 Dr. Ernie Preciado MD Work Phone: [facility] 01-12-2025 08:02-0400 Body weight 60.[address] Ernie Preciado MD Work Phone: [facility] 02-15-2024 09:27-0400 Body mass index (BMI) [Ratio] 21.83 kg/m2 Cierra Latasha RAM PRESS OPERATOR.COIN COUNTER AND WRAPPER Work Phone: [facility] 02-15-2024 09:27-0400 Body weight 57.7 kg Cierra Latasha RAM PRESS OPERATOR.COIN COUNTER AND WRAPPER Work Phone: [facility] 02-15-2024 09:27-0400 Diastolic blood pressure 60 mm[Hg] Cierra Latasha RAM PRESS OPERATOR.COIN COUNTER AND WRAPPER Work Phone: [facility] 02-15-2024 09:27-0400 Systolic blood pressure 90 mm[Hg] Cierra Latasha RAM PRESS OPERATOR.COIN COUNTER AND WRAPPER Work Phone: [facility] 12-24-2023 15:42-0400 Body height 162.6 cm Dora Pinedo MD Work Phone: [facility] 12-24-2023 15:42-0400 Body weight 57.15 kg Dora Pinedo MD Work Phone: [facility] 12-24-2023 15:42-0400 Diastolic blood pressure 60 mm[Hg] Dora Pinedo MD Work Phone: [facility] 12-24-2023 15:42-0400 Systolic blood pressure 110 mm[Hg] Dora Pinedo MD Work Phone: [facility] 05-14-2022 12:42-0400 Body temperature 98.71 [degF] Bon Kingsleylejadyn RAM PRESS OPERATOR.COIN COUNTER AND WRAPPER Work Phone: [facility] 05-14-2022 12:42-0400 Body weight 62.69 kg Bon Wynnlejadyn RAM PRESS OPERATOR.COIN COUNTER AND WRAPPER Work Phone: [facility] 05-14-2022 12:42-0400 Diastolic blood pressure 78 mm[Hg] Bon Pendlebury RAM PRESS OPERATOR.COIN COUNTER AND WRAPPER Work Phone: [facility] 05-14-2022 12:42-0400 Heart rate 71 /min Bon Pendlejadyn RAM PRESS OPERATOR.COIN COUNTER AND WRAPPER Work Phone: [facility] 05-14-2022 12:42-0400 Respiratory rate 18 /min Bon Pendlejadyn RAM PRESS OPERATOR.COIN COUNTER AND WRAPPER Work Phone: [facility] 05-14-2022 12:42-0400 SaO2% (BldA) [Mass fraction] 98 % Bon Wynnlejadyn RAM PRESS OPERATOR.COIN COUNTER AND WRAPPER Work Phone: [facility] 05-14-2022 12:42-0400 Systolic blood pressure 118 mm[Hg] Bon Avila MORTEZA Work Phone: [facility] 12-10-2021 11:22-0400 Body height 153 cm Dora Pinedo MD Work Phone: [facility] 12-10-2021 11:22-0400 Body weight 62.14 kg Doar Pinedo MD Work Phone: [facility] 12-10-2021 11:22-0400 Diastolic blood pressure 62 mm[Hg] Dora Pinedo MD Work Phone: [facility] 12-10-2021 11:22-0400 Systolic blood pressure 110 mm[Hg] Dora Pinedo MD Work Phone: [facility] Encounters Encounter Date Encounter Type Care Provider Facility Start: 05-28-2025 ambulatory Crystal Ungerer Facilit y:[facility] Start: 05-11-2025 ambulatory Crystal Ungerer Facilit y:[facility] Start: 05-01-2025 End: 05-01-2025 Patient encounter procedure Crystal Hou OIL PROCESSING TECHNICIAN-C -[facility] Work Phone: Start: 05-01-2025 End: 05-01-[address] Ernie Preciado MD Work Phone: -[facility] Start: 04-09-2025 End: 04-09-[address] Ernie Preciado MD Work Phone: -[facility] Start: 04-09-2025 End: 04-09-[address] Dominick Earl MD -[facility] Start: 04-09-2025 End: 04-09-[address] Dominick Earl MD -[facility] Work Phone: Start: 04-09-2025 End: 04-09-[address] Ernie Preciado MD Work Phone: -[facility] Start: 04-09-2025 End: 04-09-2025 ambulatory [facility] Facility:[facility] Start: 03-15-2025 End: 03-15-[address] Ernie Preciado MD -[facility] Work Phone: Start: 03-15-2025 End: 03-15-[address] Ernie Preciado MD Work Phone: -[facility] Start: 03-13-2025 ambulatory [facility] Facili ty:[facility] Start: 03-13-[address] Ernie obrien MD -Physical Therapy Work Phone: Start: 02-02-2025 End: 02-02-[address] Ernie Preciado MD Work Phone: [facility] Work Phone: Start: 02-02-2025 End: 02-02-[address] Ernie Preciado MD -[facility] [place] Work Phone: Start: 02-02-2025 End: 02-02-[address] Ernie Preciado MD -[facility] Work Phone: Start: 02-02-2025 End: 02-02-2025 ambulatory Ernie Preciado Facility:[facility] Start: 02-02-2025 End: 02-02-2025 ambulatory [facility] Facility:[facility] Start: 01-25-2025 ambulatory RIC Yen CEBUL III Facil ity:[facility] Start: 01-25-2025 End: 01-25-2025 Subsequent hospital visit by physician [facility] (I-Stat/1.5t) Work Phone: Radiology Start: 01-12-2025 End: 01-12-[address] Rashawn Hollis DO -[facility] Work Phone: Start: 01-12-2025 End: 01-12-2025 ambulatory Rashawn Hollis Facility:[facility] Start: 02-15-2024 Telephone encounter Dora Pinedo MD Work Phone: OB/Gynecology Comment on above: Patient Update Start: 02-15-2024 End: 02-15-2024 ambulatory RIC A CEBUL III Facility:[facility] Start: 02-15-2024 End: 02-15-2024 Patient encounter procedure Cierra Pagan RAM PRESS OPERATOR.COIN COUNTER AND WRAPPER Work Phone: OB/Gynecology Comment on above: Encounter for IUD in sertion (Primary Dx) Start: 01-27-2024 Telephone encounter Dora Pinedo MD Work Phone: OB/Gynecology Comment on above: Results Start: 01-19-2024 End: 01-19-2024 ambulatory Ob Ultrasound Work Phone: OB/Gynecology Comment on above: [facility] Ultras[facility] Start: 01-19-2024 End: 01-19-2024 Patient encounter procedure Surgical Appliance Fitter [facility] Work Phone: OB/Gynecology Start: 12-24-2023 End: 12-24-2023 Patient encounter procedure Dora Pinedo MD Work Phone: OB/Gynecology Comment on above: Encounter for gyneco logical examination with abnormal finding (Primary Dx); Menorrhagia with regular cycle; Dysmenorrhea Start: 12-24-2023 End: 12-24-2023 Patient encounter status Dora Pinedo MD Work Phone: [facility] Work Phone: Start: 04-14-2023 End: 04-14-2023 Subsequent hospital visit by physician [facility] Work Phone: Radiology Comment on above: Bronchitis [J40] Start: 05-14-2022 End: 05-14-2022 Patient encounter procedure Bon Avila APRN.COIN COUNTER AND WRAPPER Work Phone: [facility] Comment on above: Insect bite of abdom inal wall, initial encounter (Primary Dx) Start: 05-02-2022 Refill Betito HECTOR RN.COIN COUNTER AND WRAPPER, DNP Work Phone: [facility] Comment on above: Refill Request Start: 12-10-2021 End: 12-10-2021 Patient encounter procedure Dora Pinedo MD Work Phone: OB/Gynecology Comment on above: Encounter for gyneco logical examination (general) (routine) without abnormal findings (Primary Dx) Start: 12-10-2021 End: 12-10-2021 Patient encounter status Dora Pinedo MD Work Phone: OB/Gynecology Procedures Date Procedure Procedure Detail Performing Clinician Start: 04-09-2025 Vitamin D, 25-hydrox y measurement Dr. Ernie Preciado MD Work Phone: Comment on above: Vitamin D StatusDefi ciency: <20 ng/mL (50nmol/L)Insufficiency: 20-30 ng/mL (50-75 nmol/L)Sufficiency: 30-100 ng/mL (75-250 nmol/L)Toxicity: >100 ng/mL (>250 nmol/L) Start: 02-02-2025 X-ray of lumbosacral spine Dr. Ernie Preciado MD Work Phone: Start: 01-25-2025 Mri spinal canal lum bar w/o contrast material [facility] Provider Start: 01-12-2025 Plain x-ray of pelvi s and lower extremity Dr. Ernie Preciado MD Work Phone: Start: 01-12-2025 X-ray of lumbar spin e, two or three views Dr. Ernie Preciado MD Work Phone: Start: 02-15-2024 UA DIP,URINE HCG (POC) Cierra Ray RAM PRESS OPERATOR.COIN COUNTER AND WRAPPER Work Phone: Start: 01-19-2024 Us pelvic nonobstetr ic real-time image complete Dora Pinedo MD Work Phone: Start: 04-14-2023 Radiologic exam ches t 2 views Maye Childers PA-C Work Phone: Start: 01-06-2017 Adult depression screening assessment Dora Pinedo MD Work Phone: Start: 08-13-2015 End: 04-08-2016 H/O: section History of delivery Ob Ultrasound Work Phone: Plan of Treatment Date Care Activity Detail Author Start: 12-05-2025 Urine microalbumin profile [facility] Start: 10-18-2025 HPV TESTING HPV TESTING [facility] Start: 10-18-2025 PAP TESTING PAP TESTING [facility] Start: 10-18-2025 Screening for malign ant neoplasm of cervix [facility] Start: 05-14-2025 Influenza vaccination Influenz a Vaccine (Season Ended) [facility] Start: 04-09-2025 CBC W Auto Different ial panel - Blood [facility] Start: 04-09-2025 Comprehensive metabo lic 2000 panel - Serum or Plasma [facility] Start: 04-09-2025 T4 free measurement [facility] Start: 04-09-2025 Thyroid stimulating hormone measurement [facility] Start: 04-09-2025 Vitamin B12 measurement [facility] Start: 04-09-2025 Vitamin D, 25-hydrox y measurement [facility] Start: 02-02-2025 Patient referral [facility] Work Phone: Start: 05-14-2024 Covid-19 Vaccine ( season) Covid-19 Vaccine ( season) [facility] Start: 05-14-2024 Covid-19 Vaccine ( season) Covid-19 Vaccine ( season) [facility] Start: 05-14-2024 Influenza vaccination [facility] Start: 2024 End: 2024 Patient encounter procedure 2024 10:10 AM EDT Office Visit OB/Gynecology [address] [place], [place] [id number] Dora Rendon MD [address] [place] [address] Mirena insertion OB/Gynecology Comment on above: Mirena insertion Start: 12-24-2023 End: 03-24-2024 Thyrotropin [Units/volume] in Serum or Plasma [facility] Work Phone: Comment on above: Expected: 12/24/2023 , Expires: 03/24/2024 Start: 12-24-2023 End: 12-23-2024 US Pelvis PELVIC US [facility] Routine Menorrhagia with regular cycle Dysmenorrhea Expected: 12/24/2023, Expires: 12/23/2024 [facility] Work Phone: Comment on above: Expected: 12/24/2023 , Expires: 12/23/2024 Start: 09-13-2023 Behavioral Health Screening Behavioral Health Screening [facility] Start: 05-14-2023 Covid-19 Vaccine () Covid-19 Vaccine () [facility] Start: 05-14-2022 Influenza vaccination INFLUENZA (#1) [facility] Start: 07-24-2021 ANNUAL PCP TEAM [facility] [facility] INSTRUCTOR JOAQUÍN DISEASE VISIT ANNUAL PCP TEAM CHRONIC DISEASE VISIT [facility] Start: 05-14-2021 Influenza vaccination INFLUENZA (#1) [facility] Start: 01-06-2018 Adult depression scr eening assessment DEPRESSION SCREENING [facility] Start: 2006 Hepatitis B Vaccine (1 of 3 - 19+ 3-dose series) Hepatitis B Vaccine (1 of 3 - 19+ 3-dose series) [facility] Start: 2005 Anxiety Screening Anxiety Screening [facility] Start: 2005 Depression Screening Depression Scre ening [facility] Start: 02-25-1992 COVID-19 VACCINE (1) COVID-19 VACCIN E (1) [facility] Start: 1987 COVID-19 VACCINE (#1) COVID-19 VACCI NE (#1) [facility] Start: 1987 HEPATITIS B (1 of 3 - 3-dose series) HEPATITIS B (1 of 3 - 3-dose series) [facility] Alanine aminotransfe rase [Enzymatic activity/volume] in Serum or Plasma [facility] Albumin [Mass/volume ] in Serum or Plasma [facility] Alkaline phosphatase [Enzymatic activity/volume] in Serum or Plasma [facility] Anion gap in Serum o r Plasma [facility] Bilirubin, total measurement [facility] BUN/Creatinine ratio [facility] Calcium [Mass/volume ] in Serum or Plasma [facility] Carbon dioxide, tota l [Moles/volume] in Central venous blood [facility] Creatinine [Mass/vol ume] in Serum or Plasma [facility] Erythrocyte mean corpuscular volume determination [facility] Glucose [Mass/volume ] in Serum or Plasma [facility] Hematocrit [Volume Fraction] of Blood [facility] Hemoglobin [Mass/vol ume] in Blood [facility] Insertion intrauteri ne device iud INSERT INTRAUTERINE DEVICE Procedures Routine Menorrhagia with regular cycle Dysmenorrhea Ordered: 01/27/2024 [facility] Work Phone: Comment on above: Ordered: 01/27/2024 Insertion intrauteri ne device iud INSERT INTRAUTERINE DEVICE Procedures Routine Encounter for IUD insertion Ordered: 02/15/2024 [facility] Work Phone: Comment on above: Ordered: 02/15/2024 Leukocytes [#/volume ] in Blood [facility] Mean corpuscular hemoglobin concentration determination [facility] Mean corpuscular hemoglobin determination [facility] Measurement of renal function [facility] MR Lumbar spine [facility] Neutrophil count [facility] Neutrophil percent differential count [facility] Patient referral [facility] Work Phone: Platelets [#/volume] in Blood [facility] Potassium measurement [facility] Red blood cell count [facility] Red cell distributio n width determination [facility] Serum chloride measurement [facility] Sodium measurement [facility] Total protein measurement [facility] Urea nitrogen [Mass/volume] in Serum or Plasma [facility] Immunizations Immunization Date Immunization Notes Care Provider Fa jaleel 07-02-2018 influenza, injectabl e, quadrivalent, contains preservative Dora Pinedo MD Work Phone: [facility] 07-02-2018 influenza virus vaccine, unspecified formulation Dora Pinedo MD Work Phone: [facility] 12-06-2015 tetanus toxoid, redu cristin diphtheria toxoid, and acellular pertussis vaccine, adsorbed Dora Pinedo MD Work Phone: [facility] 12-08-2013 tetanus toxoid, redu cristin diphtheria toxoid, and acellular pertussis vaccine, adsorbed Dora Pinedo MD Work Phone: [facility] 07-02-[address] Ernie Preciado MD Work Phone: [facility] 06-15-2013 influenza virus vaccine, unspecified formulation Dora Pinedo MD Work Phone: [facility] Work Phone: 07-18-2008 tuberculin skin test ; purified protein derivative solution, intradermal [facility] Work Phone: [facility] 07-09-2008 tuberculin skin test ; purified protein derivative solution, intradermal [employer] Work Phone: [facility] Work Phone: 12-22-2007 tetanus toxoid, redu cristin diphtheria toxoid, and acellular pertussis vaccine, adsorbed Dora Pinedo MD Work Phone: [facility] Payers Date Payer Category Payer Self-pay 2023 Private Health Insurance [employer] [id number] 2023 Unknown [employer]ANI [id number] 2023-Present [phone] [place] [id number] PPO [id number] 2023 Unknown [id number] 2015 Unknown [id number] Unknown [id number] Unknown [id number] Unknown [id number] .[id number] Unknown [id number] .[id number] Unknown [id number] [id number] .2.462 Unknown [id number] [id number] .2.462 Unknown [id number] .2.462 Unknown [id number] .2.462 Unknown [id number] .2.462 Unknown [id number] .2.462 Unknown [id number] .2.462 Unknown [id number] .2.462 Social History Date Type Detail Facility Start: 09-04-2011 End: 04-09-2025 Tobacco smoking status NHIS Never smoked tobacco [facility] Start: 12-10-2021 End: 02-15-2024 Alcohol intake Current non-drinker of alcohol (finding) [facility] Start: 07-19-2020 History SDOH Alcohol Frequency 2 [facility] Start: 07-19-2020 History SDOH Alcohol Std Drinks 1 [facility] Start: 07-19-2020 History SDOH Social Connections Phone 5 [facility] Start: 07-19-2020 History SDOH Social Connections Mosque 3 [facility] Start: 07-19-2020 History SDOH Physica l Activity DPW 6 [facility] Start: 07-19-2020 History SDOH Physica l Activity MPS 8 [facility] Start: 07-19-2020 Education 21 [facility] Start: 1985 Sex Assigned At Female [facility] Start: 11-30-2021 End: 12-10-2021 Exposure to SARS-CoV-2 (event) Not sure [facility] Start: 09-04-2011 End: 05-14-2022 Tobacco use and exposure Smokeless tobacco non-user [facility] Start: 07-19-2020 End: 08-19-2020 History of Social function [facility] Start: 07-19-2020 End: 08-19-2020 Social connection and isolation panel [facility] Do you belong to any clubs or organizations such as taoism groups, unions, fraternal or athletic groups, or school groups? Yes [facility] Are you now , , , , never or living with a partner? [facility] How often to you hav e a drink containing alcohol? Monthly or less [facility] How many standard dr inks containing alcohol do you have on a typical day? 1 or 2 [facility] How often do you hav e 6 or more drinks on 1 occasion? Never [facility] How hard is it for y ou to pay for the very basics like food, housing, medical care, and heating Not hard at all [facility] Do you feel stress - tense, restless, nervous, or anxious, or unable to sleep at night because your mind is troubled all the time - these days [OSQ] Only a little [facility] (I/We) worried wheth er (my/our) food would run out before (I/we) got money to buy more. Never true [facility] In the past 12 month s, was there a time when you were not able to pay the mortgage or rent on time? No [facility] Start: 10-10-2021 Gender identity Identifies as female gender (finding) [facility] Start: 10-10-2021 Sexual orientation Heterosexual (tari peoples) [facility] Functional Status Date Assessment Result Facility 02-01-2017 Are you deaf, or do you have serious difficulty hearing No 02/01/2017 1:33 PM EDT Ric Chamorro III, MD No [facility] 02-01-2017 Are you blind, or do you have serious difficulty seeing, even when wearing glasses No 02/01/2017 1:33 PM EDT Ric Chamorro III, MD No [facility] 02-01-2017 Do you have serious difficulty walking or climbing stairs No 02/01/2017 1:33 PM EDT Ric Chamorro III, MD No [facility] 02-01-2017 Do you have difficul ty dressing or bathing No 02/01/2017 1:33 PM EDT Ric Chamorro III, MD No [facility] 02-01-2017 Because of a physica l, mental, or emotional condition, do you have difficulty doing errands alone such as visiting a physician's office or shopping No 02/01/2017 1:33 PM EDT Ric Chamorro III, MD [facility] Mental Status Date Assessment Result Facility 02-01-2017 Because of a physica l, mental, or emotional condition, do you have serious difficulty concentrating, remembering, or making decisions No 02/01/2017 1:33 PM EDT Ric Chamorro III, MD [facility] Clinical Notes 01-20-2017 to 04-09-2025 Note Date & Type Note Facility 04-09-2025 Progress note [facility] 04-09-2025 Progress note Note Date/Time April 09, 2025 3:47pm [facility] [address] [place] [address] [place] [address] OFFICE VISIT Date of Service: 04/09/25 MR#: [id number] Acct: [id number] Name: CECE OSBORNE LEESA Rep #: [id number] : 1985 Provider: Dr. 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 Anxiety Surgical History (Updated 04/09/25 @ 14:37 by Keisha Toussaint MA) History of breast augmentation History of delivery History of tonsillectomy Family History (Updated 04/09/25 @ 14:48 by Keisha Toussaint MA) Father AA (alcohol abuse) Arthritis Depression Mother Anemia Hypercholesteremia Maternal Grandmother Ovarian cancer Thyroid disorder Uterine cancer Osteoporosis Colon cancer Melanoma CVA (cerebral vascular accident) Hypercholesteremia Maternal Grandfather Myocardial infarction Heart disease Kidney disease Melanoma CVA (cerebral vascular accident) Grandfather Heart disease Sister Severe allergy Social History (Updated 04/09/25 @ 14:50 by Keisha Toussaint MA) adopted: No household members: spouse and children number of children: 2 current occupational status: unemployed pets and animals: No sexually active: Yes Smoking Status: Never smoker alcohol intake: current alcohol intake frequency: holidays/special occasions only details: < 3 in 1 sitting substance use type: does not use caffeine: Yes (1 rain energy 300mg) Type: other what type of physical activity do you participate in: aerobics frequency: 5-6 times per week do you feel safe at home: Yes HPI HPI Chief Complaint: Establish care Details: CECE OSBORNE, is a 40 F who presents to the office today to establish care. Also has some concerns. Chronic history of anxiety and depression with worsening symptoms lately. Following up with pain management and spine Ortho due to chronic back pain/radiculopathy. Had been very active engaging in Cross[employer] activities to help destress however, following recent events, has not been able to exercise asshe would like to. Scored 19 and 17 on the PHQ-9 and ANA LAURA-7 respectively. About9 years ago, she was on Zoloft which she tolerated well. Discontinued Zoloft after symptoms improved. Plans to establish with SHIRT SORTER shortly. Previously seen at the [facility] however, wants to establish with [facility]. Has been having heavy bleeds lately. An attempt was made at [facility] by her prior SHIRT SORTER however this was unsuccessful. ROS Const Constitutional: No body ache, chills, excessive sweating, fatigue, fever(s), frequent falls, headache(s), snoring, weakness, sleep problems or change in appetite Eyes Eyes: No blurry vision, change in vision, vision loss, dry eyes, eye pain or Light sensitivity ENT ENT: No abnormal hearing, ear or mastoid pain, tinnitus, dizziness/vertigo, nasal congestion, headache(s), neck pain or sore throat Resp Respiratory: No cough, excessive phlegm production, hemoptysis, shortness of breath, snoring or wheezing Cardio Cardiology: No chest pain at rest, chest pain with exertion, excessive sweating,shortness of breath, dyspnea on exertion, lightheadedness, orthopnea or palpitations Gastro GI: No abdominal pain, change in bowel habits, change in stool character, constipation, cramping, diarrhea, nausea/dyspepsia or vomiting Genitourinary-Female: No burning urination, painful urination, urinary incontinence, urinary frequency, abnormal vaginal bleeding or pelvic pain Musc Musculoskeletal: Positive for joint pain, limited range of motion and other; No back pain, neck pain or numbness Skin Skin: No dry skin, redness, lesions, itchy eyes, rash or wounds Neuro Neurology: No abnormal hearing, abnormal speech, behavioral changes, weakness, frequent falls, headache(s), memory loss or numbness Psych Psychiatric: No anxiety, No behavioral changes, No change in appetite, No depression, No memory loss and No Thoughts of harming yourself/Others Endo Endocrine: No cold intolerance, excessive sweating, fatigue, flushing, heat intolerance, increased thirst/drinking or increased hunger Aller/Imm Allergy/Immunologic: No itchy eyes, seasonal allergy symptoms, hives or wheezing Carlos/Lymp Hematologic/Lymphatic: No easy bleeding, easy bruising, enlarged lymph nodes or other Exam Const General: cooperative, comfortable and no acute distress Orientation: alert, awake and oriented x3 HENMT Head: normal to inspection, normocephalic and atraumatic Ears: hearing grossly normal bilaterally Eyes General: appearance normal, both eyes and all related structures Neck Neck: normal visual inspection, full ROM, no lymphadenopathy and supple Neck mass: No Thyroid: thyroid normal Resp Effort & Inspection: normal respiratory effort and able to speak in complete sentences Auscultation: Bilateral: Clear to Auscultation Cardio Rate: regular rate Rhythm: regular rhythm Heart Sounds: S1 normal and S2 normal GI Palpation: soft (Nontender, no palpable organomegaly) Neuro General: patient alert, patient awake, patient oriented x3, moves all extremities and CN's II-XI intact bilaterally Extrem General: no clubbing, cyanosis or edema Psych Appearance: grossly normal Mental Status: mental status grossly normal Mood: congruent mood Affect: normal affect Coding Level of Care Code Off vis,new,level 4 Diagnoses Anxiety and depression F41.9; F32.A Spinal stenosis of lumbar region with neurogenic claudication M48.062 Menorrhagia N92.0 Assessment and Plan Assessment and Plan (1) Anxiety and depression: Status: Chronic Plan: Chronic, worsening. As above, scored 19 and 17 on the PHQ-9 and ANA LAURA-7 respectively. Open to medication. In the past, had done well on Zoloft which she discontinued after symptoms stabilized. Due to current chronic back pain/radiculopathy, we discussed duloxetine which she is open to. Will start at30 mg daily/nightly. If symptoms are not well-controlled, will increase to twice daily. CBC, CMP, thyroid studies, vitamin B12 and D level ordered, will review. Follow-up in 3 months or sooner if needed. (2) Spinal stenosis of lumbar region with neurogenic claudication: Status: Chronic Plan: Following up with pain management, orthospine and has had physical therapy. Hasanother appointment with pain management tomorrow with plan for an injection in her left hip which seems to be the most bothersome. Exercise modification discussed, she voiced understanding. Follow-up at next visit. (3) Menorrhagia: Status: Chronic Plan: As above, plans to establish with his new SHIRT SORTER shortly. Had previously followed up with the [facility] and an attempt at an IUD was made however, this was unsuccessful. Wants to establish with another. Thyroid studies as above. CBC also ordered, will review. This note was generated with Plandreeation software. It may contain incorrectwords, spelling, and punctuation that were not noted in checking the note beforesigning. Orders: Orders Comprehensive Metabolic Profil Today Dr. Dominick Earl MD F32.A - Depression, unspecified, F41.9 - Anxiety disorder, unspecified CBC W/Diff, Automated Today Dr. Dominick Earl MD F32.A - Depression, unspecified, F41.9 - Anxiety disorder, unspecified Thyroid Stim Hormone (TSH) Today Dr. Dominick Earl MD F32.A - Depression, unspecified, F41.9 - Anxiety disorder, unspecified Free T4 Today Dr. Dominick Earl MD F32.A - Depression, unspecified, F41.9 - Anxiety disorder, unspecified Vitamin D,[address] Dominick Earl MD F32.A - Depression, unspecified, F41.9 - Anxiety disorder, unspecified Vitamin B12 Today Dr. Dominick Earl MD F32.A - Depression, unspecified, F41.9 - Anxiety disorder, unspecified Medications: New duloxetine 30 mg PO QDAY [address] Dominick Earl MD Refilled etodolac Do not take in conjunction with ibuprofen or other NSAID. 500 mg PO BID PRN [address] Rashawn Hollis, DO 04/09/25 1547 <Electronically signed by Dominick mayfield MD> Date _ Dominick Earl MD Cosigner Signature: Date (if applicable) CC: ~ [facility] Work Phone: 1(998) 369-569405-23-2025 Radiology Diagnostic study note [facility] [address] [place] [address] L/S Spine Bending Flex/Ext MR#: [id number] Acct: [id number] Name: CECE OSBORNE Rep #: [id number] : 1985 F 39 From: Mariola Arevalo MD PCP: Dr. Dominick Earl MD Status: R EG CLI Study:L/S Spine Bending Flex/Ext Date of Exam : 02/02/25 Exam# [id number] Ordering Dr: Marisol Preciado MD EXAM: XR Lumbosacral Spine Flexion/Extension Only, 2 or 3 Views CLINICAL INDICATION: LUMBAR SPINE PAIN TECHNIQUE: Lateral flexion/extension views of the lumbar spine and sacrum. COMPARISON: No relevant prior studies available. FINDINGS: VERTEBRAE: Anterior spondylolisthesis of L4 over L5 by 6 mm on extension and 11mm on flexion suggesting dynamic instability. Moderate facet arthropathy of L4-S1. No acute fracture. SACRUM/COCCYX: Unremarkable as visualized. No acute fracture. DISC SPACES: No acute findings. No significant narrowing. SOFT TISSUES: Unremarkable. RAD/L/S Spine Bending Flex/Ext IMPRESSION: Anterior spondylolisthesis of L4 over L5 by 6 mm on extension and 11 mm on flexion suggesting dynamic instability. Reading Location: [facility] CC: Dr. Ernie Preciado MD; Dr. Dominick Earl MD ~ Lead Process Engineer: Signed [facility]05-15-2025 History of Present illness Narrative* Sarah Rock, RT(R) - 01/25/2025 12:00 PM EDT Radiology Service Progress Note PATIENT NAME: Cece Osborne DATE OF SERVICE: January 25, 2025 TIME: 11:44 AM PATIENT IDENTITY VERIFICATION COMPLETED USING TWO (2) IDENTIFIERS: Name and Date of confirmedby patient verbally. FALL SCREENING: Has the patient had 2 falls in the last year or 1 fall with injury or currently using an Ambulatory Assistive Device (Walker, Cane, Wheelchair, Crutches, etc.)? No PATIENT GENDER DATA: Assigned female at . status: : No status:NO. PATIENT RELEVANT IMPLANT DATA REVIEWED: Yes PATIENT PRESENTS WITH AN IMPLANTABLE OR ATTACHED ESTIMATOR PRINTING PLATE MAKING: No RADIOLOGY DEPARTMENT: MR; Exam(s) Completed: Spine: Lumbar spine. Lavender Administered: No PERIPHERAL IV DATA: Not applicable SIGNED BY: RT Duane(R) January 25, 2025 11:44 AM documented in [facility]25 NoteHNO ID: [id number] Author: SARAH ROCK RT(R) Service: ? Author Type: Technologist Type: Progress Notes Filed: 01/25/2025 11:44 Note Text: Radiology Service Progress Note PATIENT NAME: Cece Osborne DATE OF SERVICE: January 25, 2025 TIME: 11:44 AM PATIENT IDENTITY VERIFICATION COMPLETED USING TWO (2) IDENTIFIERS: Name and Date of confirmed by patient verbally. FALL SCREENING: Has the patient had 2 falls in the last year or 1 fall with injury or currently using an Ambulatory Assistive Device (Walker, Cane, Wheelchair, Crutches, etc.)? No PATIENT GENDER DATA: Assigned female at . status: : No status: NO. PATIENT RELEVANT IMPLANT DATA REVIEWED: Yes PATIENT PRESENTS WITH AN IMPLANTABLE OR ATTACHED ESTIMATOR PRINTING PLATE MAKING: No RADIOLOGY DEPARTMENT: MR; Exam(s) Completed: Spine: Lumbar spine. Lavender Administered: No PERIPHERAL IV DATA: Not applicable SIGNED BY: RT Duane(R) January 25, 2025 11:44 [facility]05-02-2025 Evaluation note* Diagnosis Onset Date Resolution Status Admit Date Spondylolisthesis acute January 7:56am Spondylolysis of lumbar region acute January 12, 2025 7:56am Spinal stenosis of lumbar re gion with neurogenic claudication acute February 02, 2025 8:25am Spondylolisthesis, lumbar region acu te February 02, 2025 8:25am [facility] Work Phone: 1(799) 687-100605-02-2025 Evaluation note* Diagnosis Onset Date Resolution Status Admit Date Spondylolisthesis acute January 7:56am Spondylolysis of lumbar region acute January 12, 2025 7:56am Spinal stenosis of lumbar re gion with neurogenic claudication acute February 02, 2025 8:25am Spondylolisthesis, lumbar region acu te February 02, 2025 8:25am Spinal stenosis of lumbar re gion with neurogenic claudication acute Mar 1:53pm Spondylolisthesis, lumbar region acu te March 15, 2025 1:53pm [facility] Work Phone: 1(737) 157-182305-02-2025 Evaluation note* Diagnosis Onset Date Resolution Status Admit Date Spondylolisthesis acute January 7:56am Spondylolysis of lumbar region acute January 12, 2025 7:56am Spondylolisthesis, lumbar region acu te February 02, 2025 8:25am Spinal stenosis of lumbar re gion with neurogenic claudication chronic February 02, 2025 8:25am Spondylolisthesis, lumbar region acu te March 15, 2025 1:53pm Spinal stenosis of lumbar re gion with neurogenic claudication chronic Mar 1:53pm Anxiety and depression chronic 2024 2:26pm Menorrhagia chronic April 09 2:26pm Spinal stenosis of lumbar re gion with neurogenic claudication chronic Mar 2:26pm [facility] Work Phone: 1(556) 276-625206-06-2024 Telephone encounter Note* Telephone Encounter - Mahnaz Vegas RN - 02/17/2024 9:45 AM EDT See 02/16/24 [employer] message. Patient read it and aware to send [employer] message with questions. She saw RM 6/4 and Mirena was unable to be inserted d/t uterus size. She was going to return for Kyleena insertion. Mahnaz Vegas RN [facility]06-06-2024 Miscellaneous Notes* Telephone Encounter - Mahnaz Vegas RN - 02/17/2024 9:45 AM EDT See 02/16/24 mychart message. Patient read it and aware to send mychart message with questions. She saw RM 02/14 and Mirena was unable to be inserted d/t uterus size. She was going to return for Kyleena insertion. Mahnaz Vegas RN * Telephone Encounter - Dora Rendon MD - 02/17/2024 7:28 AM EDT Please clarify what patient needs. * Telephone Encounter - Mica Fisher - 02/15/2024 10:20 AM EDT Pt was seen in office today and would like to talk with you over phone. Pt stated that she didn't want to schedule any further appointments until discussing it with you. I advised the patient to senda mychart message to you and I also said I would send you a message as well. Thank you. documented in this encounter[facility]06-[facility]24 Telephone encounter Note * Telephone Encounter - Dora Rendon MD - 02/17/2024 7:28 AM EDT Please clarify what patient needs. [facility]06-04-2024 Telephone encounter Note* Telephone Encounter - Mica Fisher - 02/15/2024 10:20 AM EDT Pt was seen in office today and would like to talk with you over phone. Pt stated that she didn't want to schedule any further appointments until discussing it with you. I advised the patient to senda [employer] message to you and I also said I would send you a message as well. Thank you. [facility]06-04-2024 Instructions* Patient Instructions* Yessenia Wilson LPN - 02/15/2024 9:30 AM EDT POST IUD INSTRUCTIONS You may have irregular bleeding during the first 3 months of use. You may have mild-severe cramping for the next 48 hours. You may use over the counter medication (Motrin, Tylenol) as needed. Your IUD must be removed or replaced based on the following table: IUD Type Removed or replaced within: Kimberlyn 3 years Kyleena 5 years Mirena 8 years Liletta 8 years Paragard 10 years Call the office for signs/symptoms of infection such as severe cramping, fever, or unusual bleeding. Check for string placement as instructed by your doctor. If you have any additional questions, please contact the office. documented in this encounterUc [facility] Hospital06-04-2024 NoteHNO ID: [id number] Author: CIERRA PAGAN APRN.COIN COUNTER AND WRAPPER Service: ? Author Type: Nurse Practitioner Type: Progress Notes Filed: 02/15/2024 10:25 Note Text: Security Guards Dispatcher offered: Patient declines. Cece presents today for IUD insertion for menstrual dysfunction. Patient's last menstrual period was 01/21/2024. GC/chlamydia: Not done: no risk factors and/or patient declines screening test: negative Side effects including irregular bleeding were discussed with the patient. The patient understands that it should be removed in 8 years or sooner if the patient desires a . IUD source: office provided IUD lot #: [id number] Exp date: [facility]: [id number] UNIVERSAL PROTOCOL / SAFETY CHECKLIST Procedure to be Performed: Mirena insertion Sign In: A Moment of CARE was completed. Personnel directly involved with the procedure wore the appropriate PPE (Personal Protective Equipment). Patient/Surrogate Stated/Verified: PATIENT VERIFIED(optional for EMERGENT procedures): Patient name, Date of , Relevant allergies, and The intended procedure Time Out Communication: Intended patient and procedure match the source documents. Consent documented and matches the intended procedure. Sign Out: SIGN OUT (optional for EMERGENT procedures): No specimen collected. All instruments, equipment, possible retained foreign bodies accounted for. Post-procedure follow-up management communicated and Plan of Care Visit completed when applicable. The cervix was prepped with betadine. The uterus sounded to 6 cm and the uterus is Retroverted.. Unable to insert IUD due to the uterus size Patient tolerated procedure well. PLAN: Patient was advised to observe for signs and symptoms of infection including but not limited to fever, malodorous vaginal discharge and/or pain. The patient was told to check the string monthly for accurate placement. Bleeding expectations were reviewed. ASSESSMENT/PLAN: 1. Encounter for IUD insertion - ICD9: V25.11, ICD10: Z30.430 - INSERT INTRAUTERINE DEVICE- Kyleena Pt to reschedule insertion with next menses and was given Cytotec to use prior to the procedure. Cierra Pagan APRN.[facility] History of Present illness Narrative* Cierra Pagan APRN.[facility] - 02/15/2024 9:27 AM EDT Security Guards Dispatcher offered: Patient declines. Cece presents today for IUD insertion for menstrual dysfunction. Patient's last menstrual period was 01/21/2024. GC/chlamydia: Not done: no risk factors and/or patient declines screening test: negative Side effects including irregular bleeding were discussed with the patient. The patient understands that it should be removed in 8 years or sooner if the patient desires a . IUD source: office provided IUD lot #: [id number] Exp date: [facility]: [id number] UNIVERSAL PROTOCOL / SAFETY CHECKLIST Procedure to be Performed: Mirena insertion Sign In: A Moment of CARE was completed. Personnel directly involved with the procedure wore the appropriate PPE (Personal Protective Equipment). Patient/Surrogate Stated/Verified: PATIENT VERIFIED(optional for EMERGENT procedures): Patient name, Date of , Relevant allergies, and The intended procedure Time Out Communication: Intended patient and procedure match the source documents. Consent documented and matches the intended procedure. Sign Out: SIGN OUT (optional for EMERGENT procedures): No specimen collected. All instruments, equipment, possible retained foreign bodies accounted for. Post-procedure follow-up management communicated and Plan of Care Visit completed when applicable. The cervix was prepped with betadine. The uterus sounded to 6 cm and the uterus is Retroverted.. Unable to insert IUD due to the uterus size Patient tolerated procedure well. PLAN: Patient was advised to observe for signs and symptoms of infection including but not limited to fever, malodorous vaginal discharge and/or pain. The patient was told to check the string monthlyfor accurate placement. Bleeding expectations were reviewed. ASSESSMENT/PLAN: 1. Encounter for IUD insertion - ICD9: V25.11, ICD10: Z30.430 - INSERT INTRAUTERINE DEVICE- Master Pt to reschedule insertion with next menses and was given Cytotec to use prior to the procedure. Cierra Pagan APRN.COIN COUNTER AND WRAPPER [facility] Tele[facility] encounter Note * Telephone Encounter - Dora Rendon MD - 01/27/2024 9:10 AM EDT Ordered, nothing prior. [facility] Miscellaneous Notes* Telephone Encounter - Dora Rendon MD - 01/27/2024 9:10 AM EDT Ordered, nothing prior. * Telephone Encounter - Mahnaz Vegas RN - 01/27/2024 9:04 AM EDT Patient notified. She decided to proceed with Mirena. Appointment scheduled. Please file order to attach to appointment. Does she need anything further prior to that appointment? Mahnaz Vegas RN * Telephone Encounter - Mahnaz Vegas RN - 01/27/2024 8:58 AM EDT ----- Message from Dora Pinedo MD sent at 01/27/2024 8:01 AM EDT ----- Is notify patient that her pelvic ultrasound is normal. If she would like to proceed with any intervention for her heavy menses please let me know. [facility] Telephone encounter Note * Telephone Encounter - Mahnaz Vegas RN - 01/27/2024 9:04 AM EDT Patient notified. She decided to proceed with Mirena. Appointment scheduled. Please file order to attach to appointment. Does she need anything further prior to that appointment? Mahnaz Vegas RN [facility] Telephone encounter Note* Telephone Encounter - Mahnaz Vegas RN - 01/27/2024 8:58 AM EDT ----- Message from Dora Pinedo MD sent at 01/27/2024 8:01 AM EDT ----- Is notify patient that her pelvic ultrasound is normal. If she would like to proceed with any intervention for her heavy menses please let me know. [facility] Note Indication Evaluation of abnormal uterine bleeding: menorrhagia Impression Normal appearing retroverted uterus that measures 80 mm x 46 mm x 70 mm. The central endometrium complex measures 13.5 mm in combined thickness. No abnormal blood flow to suggest a polyp or focal endometrial pathology is observed within the endometrial complex. The contour of the endometrial cavity was normal on 3-D imaging. Both ovaries are visualized and appear normal. No adnexal masses were observed. There is no free fluid visualized in the peritoneal cavity. Recommendations Follow up as clinically indicated. Menstrual History LMP on 12/02/2023 Method Transabdominal, transvaginal, 3D ultrasound examination, Color Doppler examination Uterus Uterus: Visualized Uterus position: retroverted Uterus length 80 mm Uterus width 70 mm Uterus height 46 mm Uterus Vol 134.8 cm Endometrial thickness, total 13.5 mm Right Ovary Rt ovary: Visualized Rt ovary D1 23 mm Rt ovary D2 15 mm Rt ovary D3 17 mm Rt ovary Vol 3.1 cm Left Ovary Lt ovary: Visualized Lt ovary D1 41 mm Lt ovary D2 23 mm Lt ovary D3 21 mm Lt ovary Vol 9.9 cm Cul de Sac Visualized. no free fluid visualized Performed By: Liss Barreto RDMS, RVT Read By: Dora Zelaya M.D.MATERNAL [id number] History of Present illness Narrative* Dora Rendon MD - 12/24/2023 3:39 PM EDT Security Guards Dispatcher offered: Patient declines. Cece is a 38 year old who presents for an annual gynecologic exam with complaints, heavyand painful menses- will bleed through super plus tampons in minutes clots, denies cp, sob during cycles . 70-80% of cycle is heavy. No pain with intercourse. Menses: cycles every 28 days and 7-10 days of flow. Contraception: vasectomy HPV vaccine: No Last Pap: 10/29/2020 normal HPV: 10/22/2020 negative History of abnormal pap: No Last mammogram: never Sexually active: Yes History of STDS: None Patient concerns for STD exposure: No. Pain with intercourse: No Postcoital bleeding: No Exercise: active Diet: balanced OB History T2 L2 SAB0 IAB0 Ectopic0 Multiple0 Live Births2 Validation Consultant History LMP: 12/02/2023, Having periods Age at Menarche: Age at First : Age at Menopause: Validation Consultant History Comments: Sexual Activity: Yes; Male Contraception: Vasectomy PAST MEDICAL HISTORY Diagnosis Date Anxiety 09/05/2010 Complication of anesthesia TROUBLECOMING OUT OF ANESTHESIA Depression 09/05/2010 Other acne Post depression 01/20/2017 Secondary hypothyroidism 01/15/2017 PAST SURGICAL HISTORY Procedure Laterality Date BREAST AUGMENTATION W/PROSTHETIC IMPLANT Bilateral 01/2020 DELIVERY ONLY 01/27/2014 , low transverse TONSILLECTOMY PRIMARY/SECONDARY <AGE 12 Tonsillectomy FAMILY HISTORY Problem Relation Age of Onset Hypertension Mother other (anxiety) Mother Thyroid Maternal Grandmother Heart Maternal Grandfather SPOT BEHIND HEART ON LYMPH NODES Diabetes Paternal Grandfather Heart Paternal Grandfather HEART ATTACK Cancer Paternal Grandmother uterine cancer Emphysema Paternal Grandmother None Sister SOCIAL HISTORY Social History Tobacco Use Smoking status: Never Smokeless tobacco: Never Vaping Use Vaping Use: Never used Substance Use Topics Alcohol use: No Drug use: No REVIEW OF SYSTEMS Abdomen: No abdominal pain, nausea, vomiting, diarrhea, or constipation. No bloating, early satiety, indigestion, or increased flatulence. Bladder: No dysuria, gross hematuria, urinary frequency, urinary urgency, or incontinence. Breast: No breast lumps, nipple d/c, overlying skin changes, redness or skin retraction. Allergies and current medication updated:Yes EXAM: BP 110/60 Ht 5' 4 (1.63m) Wt 126 lb (57.2kg) LMP 12/02/2023 BMI 21.62 kg/(m^2). GENERAL: pleasant, female in no apparent distress HEENT: Normocephalic, atraumatic, mucus membranes moist, and no lesions NECK: Supple, full range of motion, no adenopathy, and thyroid normal DERMATOLOGY: Normal, without lesions, non-icteric, and non-hirsute BREAST: soft, non-tender, symmetric, no dominant mass, normal nipple-areolar complex, no lymphadenopathy, and no nipple discharge ABDOMEN: soft, non-tender, and no masses PELVIC: external genitalia normal, normal Bartholin's glands, urethra, Reader's glands, no vulvar lesions, no cervical lesions, good vaginal support, physiologic discharge present, normal appearing perineal body and perianal region BIMANUAL: uterus normal size, shape and consistency, no adnexal masses, and non-tender RECTOVAGINAL: deferred. NEURO: alert and oriented x3,exam grossly non-focal EXTREMITIES: normal ASSESSMENT/PLAN: (Z01.411) Encounter for gynecological examination with abnormal finding (primary encounter diagnosis) (N92.0) Menorrhagia with regular cycle (N94.6) Dysmenorrhea 1) Health maintenance: Pap/HPV up to date. Mammogram starting age 40. Nutrition, exercise and routine health maintenance exams reviewed. Calcium/Vitamin D supplementation information provided. 2) Contraception: vasectomy. Contraceptive options reviewed and information provided. 3) STD screening: Declined STD check. 4) Follow up one year or sooner as needed 5) labs and pelvic us 6) follow up after- pamphlet for mirena and ablation- may need EMB. Medical Decision Making: Problems: Moderate: New problem with uncertain prognosis Data: Unique test(s) ordered: 3+ Medical Decision Making Level: 4 - Moderate Dora Zelaya MD [facility] History of Present illness Narrative* Anna Lopez RT(R) - 04/14/2023 11:30 AM EDT Radiology Service Progress Note PATIENT NAME: Cece Osborne DATE OF SERVICE: April 14, 2023 TIME: 11:29 AM PATIENT IDENTITY VERIFICATION COMPLETED USING TWO (2) IDENTIFIERS: Name and Date of confirmedby patient verbally. FALL SCREENING: Has the patient had 2 falls in the last year or 1 fall with injury or currently using an Ambulatory Assistive Device (Walker, Cane, Wheelchair, Crutches, etc.)? No PATIENT GENDER DATA: Female. status: : No status: NO. PATIENT RELEVANT IMPLANT DATA REVIEWED: Yes RADIOLOGY DEPARTMENT: General X-ray: Exam(s) Completed: Chest X-Ray PERIPHERAL IV DATA: Not applicable SIGNED BY: CRISTINA Rodrigues) April 14, 2023 11:29 AM documented [facility] History of Present illness Narrative* Bon Avila APRN.COIN COUNTER AND WRAPPER - 05/14/2022 12:46 PM EDT Images from the original note were not included. Subjective HPI Nontoxic-appearing female presents urgent care chief complaint possible insect bite. Patient states2 days ago in the afternoon she noticed a stinging sensation on her left lower abdominal region. States when she went to the bathroom she looked at this area and noticed a small area of redness. Was unaware of what insect bit or stung her. She has been using OTC antiitch medication and Benadryl this did help control the itching. Denies any significant pain with today's chief complaint. Most predominant symptom is itching. Denies any systemic symptoms. States overall she feels well. Denies any fever body aches chills nausea vomiting abdominal pain rashes. Past medical history prescription medic ation use allergies reviewed. Denies chance of is not breast-feeding. .Patient presents with: insect bite on stomach: X 2 days PAST MEDICAL HISTORY Diagnosis Date Anxiety 09/05/2010 Complication of anesthesia TROUBLECOMING OUT OF ANESTHESIA Depression 09/05/2010 Other acne Post depression 01/20/2017 Secondary hypothyroidism 01/15/2017 PAST SURGICAL HISTORY Procedure Laterality Date BREAST AUGMENTATION W/PROSTHETIC IMPLANT Bilateral 01/2020 DELIVERY ONLY 01/27/2014 , low transverse TONSILLECTOMY PRIMARY/SECONDARY <AGE 12 Tonsillectomy ALLERGIES Patient has no known allergies. MEDICATIONS Norethindrn A-E Estradiol-Iron (JUNEL FE 24) 1 mg-20 mcg (24)/75 mg (4) Take 1 tablet by mouth oncedaily. sertraline (ZOLOFT) 50 mg tablet Take 1 tablet by mouth once daily. fluticasone (FLONASE) 50 mcg/actuation nasal spray Use 2 Sprays in each nostril once daily. Rinse mouth after use. cetirizine-pseudoephedrine (ZYRTEC-D) 5-120 mg per tablet Take 1 tablet by mouth twice daily. FAMILY HISTORY Problem Relation Age of Onset Hypertension Mother other (anxiety) Mother Thyroid Maternal Grandmother Heart Maternal Grandfather SPOT BEHIND HEART ON LYMPH NODES Diabetes Paternal Grandfather Heart Paternal Grandfather HEART ATTACK Cancer Paternal Grandmother uterine cancer Emphysema Paternal Grandmother None Sister Social History Tobacco Use Smoking status: Never Smokeless tobacco: Never Vaping Use Vaping Use: Never used Substance Use Topics Alcohol use: No Drug use: No BP 118/78 Pulse 71 Temp 37.1 C (98.7 F) (Tympanic) Resp 18 Wt 62.7 kg (138 lb 3.2 oz) LMP11/22/2021 SpO2 98% BMI 26.78 kg/m Review of Systems Constitutional: Negative for chills, fever and malaise/fatigue. HENT: Negative for congestion, ear discharge, ear pain, sinus pain and sore throat. Eyes: Negative for blurred vision, pain, discharge and redness. Respiratory: Negative for cough, hemoptysis, sputum production, shortness of breath, wheezing and stridor. Cardiovascular: Negative for chest pain. Gastrointestinal: Negative for abdominal pain, diarrhea, nausea and vomiting. Musculoskeletal: Negative for myalgias. Skin: Positive for itching. Negative for rash. Neurological: Negative for dizziness and headaches. Objective Physical Exam Constitutional: General: She is not in acute distress. Appearance: She is not diaphoretic. HENT: Head: Normocephalic. Mouth/Throat: Mouth: Mucous membranes are moist. Pharynx: Oropharynx is clear. No oropharyngeal exudate or posterior oropharyngeal erythema. Eyes: Conjunctiva/sclera: Conjunctivae normal. Pupils: Pupils are equal, round, and reactive to light. Cardiovascular: Rate and Rhythm: Normal rate and regular rhythm. Heart sounds: Normal heart sounds. Pulmonary: Effort: Pulmonary effort is normal. No tachypnea, accessory muscle usage or respiratory distress. Breath sounds: Normal breath sounds. No stridor. No wheezing, rhonchi or rales. Abdominal: Palpations: Abdomen is soft. Tenderness: There is no abdominal tenderness. Musculoskeletal: Cervical back: Normal range of motion and neck supple. No rigidity or tenderness. Lymphadenopathy: Cervical: No cervical adenopathy. Skin: General: Skin is warm and dry. Comments: A approximate 3 cm x 4 cm area of erythema noted highlighted area. Area in center representing insect bite noted. No foreign bodies noted. No induration. No fluctuance. No desquamation of skin. No evidence of bacterial infection. Neurological: Mental Status: She is alert and oriented to person, place, and time. ASSESSMENT/PLAN: 1. Insect bite of abdominal wall, initial encounter - ICD9: 911.4, E906.4, ICD10: S30.861A, W57.XXXA Patient diagnosed with insect bite. No evidence of secondary bacterial infection at this point. We will treat conservatively. Steroid cream prescribed. Will use as instructed not on areas of thin skin. Red flags for reevaluation discussed. Patient was educated on supportive therapies. Patient will follow up with primary care provider as needed. Patient was instructed to immediately proceed to emergency room for any new, worsening, or symptoms lasting longer than anticipated. The patient's clinical presentation is otherwise unremarkable at this time. Based on exam and clinical finding, the patient is stable for discharge. Plan of care was discussed with patient. Patient verbalizes understanding and agrees to plan of care. This note was generated using auctionpoint software. It may contain errorsin wording, punctuation, or spelling. Bon Avila APRN.ETHAN documented [facility] encounter[facility]22 Miscellaneous Notes* Telephone Encounter - Bon Riojas MD - 05/04/2022 5:28 PM EDT Let patient know refill request for Zoloft is denied. She has not been seen by a provider in the office since 05/2019. Her previous provider retired in 04/2021. It appears she does not take med consistently since based on last refill she would of ran out as of 12/02/2021 or sooner. Patient will need to make an appt to establish with a new provider. * Telephone Encounter - Esperanza Luque MA - 05/04/2022 1:11 PM EDT RX INSTRUCTIONS: Patient aware RX will be sent to pharmacy. No need to notify patient. Last OV: 07/24/20 VV with Ric Chamorro Last refill: 12/02/2020 With 30 and 11 refills Follow up: No appointment is scheduled at this time with no notification at last fill. Esperanza Luque MA documented in [facility] encounter[facility] History of Present illness Narrative* Dora Pinedo MD - 12/10/2021 11:31 AM EDT Cece is a 36 year old who presents for an annual gynecologic exam without complaints. Stopped taking neurology tech - had 3 months of no menses with - stopped- then had painful menses in October- wondering if this was ok. Two kids ages 6/8. Going to [place] for spring break Menses: cycles TYPICALLY on ocps were every 28 days and 4 days of flow. Contraception: vasectomy HPV vaccine: No Last Pap: 10/29/2020 normal HPV: 10/22/2020 negative History of abnormal pap: No Last mammogram: never Sexually active: Yes History of STDS: None Patient concerns for STD exposure: No. Pain with intercourse: No Postcoital bleeding: No Hot flashes: No Night sweats: Yes Vaginal dryness: No Exercise: crossfit Diet: balanced OB History T2 L2 SAB0 IAB0 Ectopic0 Multiple0 Live Births2 Validation Consultant History LMP: 11/22/2021, Having periods Age at Menarche: Age at First : Age at Menopause: Validation Consultant History Comments: Sexual Activity: Yes; Male Contraception: Vasectomy PAST MEDICAL HISTORY Diagnosis Date Anxiety 09/05/2010 Complication of anesthesia TROUBLECOMING OUT OF ANESTHESIA Depression 09/05/2010 Other acne Post depression 01/20/2017 Secondary hypothyroidism 01/15/2017 PAST SURGICAL HISTORY Procedure Laterality Date BREAST AUGMENTATION W/PROSTHETIC IMPLANT Bilateral 01/2020 DELIVERY ONLY 01/27/2014 , low transverse TONSILLECTOMY PRIMARY/SECONDARY <AGE 12 Tonsillectomy FAMILY HISTORY Problem Relation Age of Onset Hypertension Mother other (anxiety) Mother Thyroid Maternal Grandmother Heart Maternal Grandfather SPOT BEHIND HEART ON LYMPH NODES Diabetes Paternal Grandfather Heart Paternal Grandfather HEART ATTACK Cancer Paternal Grandmother uterine cancer Emphysema Paternal Grandmother None Sister SOCIAL HISTORY Social History Tobacco Use Smoking status: Never Smoker Smokeless tobacco: Never Used Vaping Use Vaping Use: Never used Substance Use Topics Alcohol use: No Drug use: No REVIEW OF SYSTEMS Abdomen: No abdominal pain, nausea, vomiting, diarrhea, or constipation. No bloating, early satiety, indigestion, or increased flatulence. Bladder: No dysuria, gross hematuria, urinary frequency, urinary urgency, or incontinence. Breast: No breast lumps, nipple d/c, overlying skin changes, redness or skin retraction. Allergies and current medication updated:Yes EXAM: BP 110/62 Ht 5' .236 (1.53m) Wt 137 lb (62.1kg) LMP 11/22/2021 BMI 26.55 kg/(m^2). GENERAL: pleasant, female in no apparent distress HEENT: Normocephalic, atraumatic, mucus membranes moist and no lesions NECK: Supple, full range of motion, no adenopathy and thyroid normal DERMATOLOGY: Normal, without lesions, non-icteric and non-hirsute BREAST: soft, non-tender, symmetric, no dominant mass, normal nipple-areolar complex, no lymphadenopathy, no nipple discharge and surgical implants ABDOMEN: soft, non-tender and no masses PELVIC: external genitalia normal, normal Bartholin's glands, urethra, Reader's glands, no vulvar lesions, no cervical lesions, good vaginal support, physiologic discharge present, normal appearing perineal body and perianal region BIMANUAL: uterus normal size, shape and consistency, no adnexal masses and non-tender RECTOVAGINAL: deferred. NEURO: alert and oriented x3,exam grossly non-focal EXTREMITIES: normal ASSESSMENT/PLAN: 1) Health maintenance: Pap/HPV up to date. Mammogram starting age 40. Nutrition, exercise and routine health maintenance exams reviewed. 2) Contraception: vasectomy. Contraceptive options reviewed and information provided. 3) STD screening: Declined STD check. 4) Follow up one year or sooner as needed Dora Zelaya MD * Malina Haywood Ma - 12/10/2021 11:20 AM EDT Security Guards Dispatcher offered: Patient declines. [facility] History of Past illness Narrative* Problem Noted Date Resolved Date Post depression 01/20/2017 8 Supervision of normal 10/08/2015 04/08/2016 History of depression 08/13/2015 04/08/2016 Overview: Previously on Celexa- stopped taking it prior to . Encounter for supervision of normal in third trimester 08/13/2015 04/08/2016 History of delivery 08/13/2015 Overview: Arrest of descent (pushed for 2.5 hrs). Pt declines TOLAC, would like to proceed with repeat c/s. Supervision of normal first 07/20/2013 03/05/2014 Overview: Girl on [facility]- [facility] Family history of Down syndrome 06/15/2013 09/26/2013 Overview: 06/15/2013 Patient has two second cousins with Down syndrome. TKRN Anxiety 09/05/2010 07/02/2018 documented as of this encounter (statuses as of 12/10/2021) [facility] History of Past illness Narrative* Problem Noted Date Resolved Date Post depression 01/20/2017 8 Supervision of normal 10/08/2015 04/08/2016 History of depression 08/13/2015 04/08/2016 Overview: Previously on Celexa- stopped taking it prior to . Encounter for supervision of normal in third trimester 08/13/2015 04/08/2016 History of delivery 08/13/2015 Overview: Arrest of descent (pushed for 2.5 hrs). Pt declines TOLAC, would like to proceed with repeat c/s. Supervision of normal first 07/20/2013 03/05/2014 Overview: Girl on us- daisy Family history of Down syndrome 06/15/2013 09/26/2013 Overview: 06/15/2013 Patient has two second cousins with Down syndrome. TKRN Anxiety 09/05/2010 07/02/2018 documented as of this encounter (statuses as of 05/05/2022) [facility] of Past illness Narrative* Problem Noted Date Resolved Date Post depression 01/20/2017 8 Supervision of normal 10/08/2015 04/08/2016 History of depression 08/13/2015 04/08/2016 Overview: Previously on Celexa- stopped taking it prior to . Encounter for supervision of normal in third trimester 08/13/2015 04/08/2016 History of delivery 08/13/2015 Overview: Arrest of descent (pushed for 2.5 hrs). Pt declines TOLAC, would like to proceed with repeat c/s. Supervision of normal first 07/20/2013 03/05/2014 Overview: Girl on [facility] Family history of Down syndrome 06/15/2013 09/26/2013 Overview: 06/15/2013 Patient has two second cousins with Down syndrome. TKRN Anxiety 09/05/2010 07/02/2018 documented as of this encounter (statuses as of 05/14/2022) [facility] History of Past illness Narrative* Problem Noted Date Diagnosed Date Resolved Date Post depression 01/20/201707/02 Supervision of normal 10/08/2015 04/08/2016 History of depression 08/13/20152015 Overview: Previously on Celexa- stopped taking it prior to . Encounter for supervision of normal in third trimester 08/13/2015 04/08/2016 History of delivery 08/13/2015 04/08/2016 Overview: Arrest of descent (pushed for 2.5 hrs). Pt declines TOLAC, would like to proceed with repeat c/s. Supervision of normal first 07/20/2013 03/05/2014 Overview: Girl on - daisy Family history of Down syndrome 06/15/2013 09/26/2013 Overview: 06/15/2013 Patient has two second cousins with Down syndrome. TKRN Anxiety 09/05/2010 07/02/2018 documented as of this encounter (statuses as of 12/24/2023) [facility] note* Diagnosis Encounter for gynecological examination (general) (routine) without abnormal findings- Primary documented in this encounter [facility] note* Diagnosis Anxiety Anxiety state, unspecified documented in this encounter [facility] note* Diagnosis Insect bite of abdominal wall, initial encounter- Primary documented in this encounter [facility] note* Diagnosis Encounter for gynecological examination with abnormal finding- Primary Routine gynecological examination Menorrhagia with regular cycle Excessive or frequent menstruation Dysmenorrhea documented in this encounter [facility] note* Diagnosis Menorrhagia with regular cycle Excessive or frequent menstruation Dysmenorrhea documented in this encounter [facility] note* Diagnosis Menorrhagia with regular cycle- Primary Excessive or frequent menstruation Dysmenorrhea documented in this encounter [facility] note* Diagnosis Encounter for IUD insertion- Primary Encounter for insertion of intrauterine contraceptive device documented in this encounter [facility] note* Diagnosis Bronchitis Bronchitis, not specified as acute or chronic [facility] Orders* Pain Management Location: None Selected * PT Referral Location: None Selected [facility] Work Phone: Reason for referral (narrative)* Diagnostic Procedure Only (Routine) - Authorized Specialty Diagnoses / Procedures Referred By Xavi chan Referred To Contact [facility] Diagnoses Menorrhagia with regular cycle Dysmenorrhea Procedures PELVIC US WHI US PELVIC NONOBSTETRIC REAL-TIME IMAGE COMPLETE Dora Rendon MD [address] [place] [address] [facility] [address] [place] [address] Referral ID Status Reason Start Date Expiration Date Visits Requested Visits Authorized [id number] Authorized Auto-Generat ed Referral 12/24/2023 12/23/2024 1 1 [facility] for referral (narrative)* Outpatient Procedure (Routine) - Pending Review Specialty Diagnoses / Procedures Referred By Xavi chan Referred To Contact [facility] Diagnoses Menorrhagia with regular cycle Dysmenorrhea Procedures INSERT INTRAUTERINE DEVICE LEVONORGESTREL IU 52MG 5 YR INSERT INTRAUTERINE DEVICE Dora Rendon MD [address] [place] [address] [address] Referral ID Status Reason Start Date Expiration Date Visits Requested Visits Authorized [id number] Pending Review Auto-Generat ed Referral 01/27/2024 01/26/2025 1 1 [facility] for referral (narrative)* Outpatient Procedure (Routine) - Pending Review Specialty Diagnoses / Procedures Referred By Xavi chan Referred To Contact [facility] Diagnoses Encounter for IUD insertion Procedures INSERT INTRAUTERINE DEVICE LEVONORGESTREL-RELEASING INTR CONTRACEPTIVE (KYLEENA), 19.5 MG INSERT INTRAUTERINE DEVICE Cierra Pagan APRN.CNP [address] [place] [address] [address] Referral ID Status Reason Start Date Expiration Date Visits Requested Visits Authorized [id number] Pending Review Auto-Generat ed Referral 02/15/2024 02/14/2025 1 1 [facility] Summary Purpose Family History No Family History Records Found Relationship Condition Age at Onset Recorded Date/T fabiola Not Specified Cardiac disease Unknown Malignant neoplasm Unknown Hypertension Unknown Relationship Condition Age at Onset Recorded Date/T fabiola father Alcohol abuse Unknown Arthritis Unknown Depression Unknown mother Anemia Unknown Hypercholesterolemia Unknown Not Specified Malignant neoplasm of ovary Unknown Disorder of thyroid Unknown Malignant neoplasm of uterus Unknown Osteoporosis Unknown Malignant neoplasm of colon Unknown Malignant melanoma Unknown Cerebrovascular accident (CVA) Unknown Not Specified Myocardial infarction Unknown Cardiac disease Unknown Kidney disorder Unknown grandfather Cardiac disease Unknown sister Severe allergy Unknown Advance Directives No Advanced Directives Records FoundNo Advanced Directives Records Found Chief Complaint and Reason for Visit Chief Complaint Admit Date LEFT HIP January 12, 2025 7:56am Room 1 January 12, 2025 8:12am LUMBAR SPINE February 02, 2025 8:25a m lumbar spine pain February 02, 2025 9:49a m Reason for Visit Admit Date Spondylolisthesis January 12, 2025 7:56am Spondylolysis of lumbar region January 12, 2025 7:56am Spinal stenosis of lumbar region with ne urogenic claudication February 02, 2025 8:25am Spondylolisthesis, lumbar region January 8:25am Chief Complaint Admit Date LEFT HIP January 12, 2025 7:56am Room January 12, 2025 8:12am LUMBAR SPINE February 02, 2025 8:25a m lumbar spine pain February 02, 2025 9:49a m LUMBAR SPONDYLOLISTHESIS. RX HERE March 132024 10:00am LUMBAR SPINE March 15, 2025 1:53p m Reason for Visit Admit Date Spondylolisthesis January 12, 2025 7:56am Spondylolysis of lumbar region January 12, 2025 7:56am Spinal stenosis of lumbar region with ne urogenic claudication February 02, 2025 8:25am Spondylolisthesis, lumbar region January 8:25am Spinal stenosis of lumbar region with ne urogenic claudication March 15, 2025 1:53pm Spondylolisthesis, lumbar region March 1:53pm Chief Complaint Admit Date LEFT HIP January 12, 2025 7:56am Room January 12, 2025 8:12am LUMBAR SPINE February 02, 2025 8:25a m lumbar spine pain February 02, 2025 9:49a m LUMBAR SPONDYLOLISTHESIS. 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 Reason for Visit Admit Date Spondylolisthesis January 12, 2025 7:56am Spondylolysis of lumbar region January 12, 2025 7:56am Spondylolisthesis, lumbar region January 8:25am Spinal stenosis of lumbar region with ne urogenic claudication February 02, 2025 8:25am Spondylolisthesis, lumbar region March 1:53pm Spinal stenosis of lumbar region with ne urogenic claudication March 15, 2025 1:53pm Anxiety and depression April 09, 2025 2 :26pm Menorrhagia April 09, 2025 2:26 pm Spinal stenosis of lumbar region with ne urogenic claudication April 09, 2025 2:26pm Chief Complaint Admit Date LEFT HIP January 12, 2025 7:56am Room 1 January 12, 2025 8:12am LUMBAR SPINE February 02, 2025 8:25a m lumbar spine pain February 02, 2025 9:49a m LUMBAR SPONDYLOLISTHESIS. 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 POSSIBLE HERNIA May 01, 2025 12 :22pm Additional Source Comments Source Comments (unrecognize d section and content) In the event this informatio n is protected by the Federal Confidentiality of Alcohol and Drug Abuse Patient Records regulations: The Federal rules restrict any use of the information to criminally investigate or prosecute any alcohol or drug abuse patient.[facility] the event this information is protected by the Federal Confidentiality of Alcohol and Drug Abuse Patient Records regulations: The Federal rules restrict any use of the information to criminally investigate or prosecute any alcohol or drug abuse patient.[facility] the event this information is protected by the Federal Confidentiality of Alcohol and Drug Abuse Patient Records regulations: The Federal rules restrict any use of the information to criminally investigate or prosecute any alcohol or drug abuse patient.[facility] the event this information is protected by the Federal Confidentiality of Alcohol and Drug Abuse Patient Records regulations: The Federal rules restrict any use of the information to criminally investigate or prosecute any alcohol or drug abuse patient.[facility] the event this information is protected by the Federal Confidentiality of Alcohol and Drug Abuse Patient Records regulations: The Federal rules restrict any use of the information to criminally investigate or prosecute any alcohol or drug abuse patient.[facility] the event this information is protected by the Federal Confidentiality of Alcohol and Drug Abuse Patient Records regulations: The Federal rules restrict any use of the information to criminally investigate or prosecute any alcohol or drug abuse patient.[facility] the event this information is protected by the Federal Confidentiality of Alcohol and Drug Abuse Patient Records regulations: The Federal rules restrict any use of the information to criminally investigate or prosecute any alcohol or drug abuse patient.[facility] the event this information is protected by the Federal Confidentiality of Alcohol and Drug Abuse Patient Records regulations: The Federal rules restrict any use of the information to criminally investigate or prosecute any alcohol or drug abuse patient.[facility] the event this information is protected by the Federal Confidentiality of Alcohol and Drug Abuse Patient Records regulations: The Federal rules restrict any use of the information to criminally investigate or prosecute any alcohol or drug abuse patient.[facility] the event this information is protected by the Federal Confidentiality of Alcohol and Drug Abuse Patient Records regulations: The Federal rules restrict any use of the information to criminally investigate or prosecute any alcohol or drug abuse patient.[facility] Reason for Visit (unrecogniz ed section and content) Reason Comments Yearly Exam Reason Onset Date Comments Refill Request 05/02/2022 Reason Comments insect bite on stomach X 2 days Reason Comments Yearly Exam Specialty Diagnoses / Procedures Referred By Xavi t Referred To Contact [facility] [facility] Diagnoses annual Procedures annual Self Dora Rendon MD [address] [place] [address] Referral ID Status Reason Start Date Expiration Date V isits Requested Visits Authorized [id number] Closed Financial Clearance Required - Self Pay Patient Cleared - True Self-Pay required payment collected 07/08/2023 10/06/2023 1 1 Reason Comments [facility] Ultrasound Specialty Diagnoses / Procedures Referred By Xavi t Referred To Contact [facility] Diagnoses Menorrhagia with regular cycle Dysmenorrhea Procedures PELVIC US WHI US PELVIC NONOBSTETRIC REAL-TIME IMAGE COMPLETE Dora Rendon MD [address] [place] [address] [facility] [place] [address] Referral ID Status Reason Start Date Expiration Date V isits Requested Visits Authorized [id number] Closed Auto-Generate d Referral 12/24/2023 12/23/2024 1 1 Reason Comments Results Reason Onset Date Comments Insertion Of IUD Insertion Of IUD 02/15/2024 Specialty Diagnoses / Procedures Referred By Xavi t Referred To Contact [facility] Diagnoses Menorrhagia with regular cycle Dysmenorrhea Encounter for removal of intrauterine contraceptive device Encounter for insertion of intrauterine contraceptive device Procedures INSERT INTRAUTERINE DEVICE LEVONORGESTREL IU 52MG 5 YR INSERT INTRAUTERINE DEVICE REMOVE INTRAUTERINE DEVICE Dora Rendon MD [address] [place] [address] [facility] [place] [address] Referral ID Status Reason Start Date Expiration Date Visits Requested Visits Authorized [id number] Authorized Auto-Generat ed Referral 02/02/2024 09/12/2024 2 2 Reason Comments Patient Update Care Teams (unrecognized sec tion and content) Logistics Planner Relationship Specialty Start Date End Date Ric Chamorro III, MD PCP - General 12/08/07 Logistics Planner Relationship Specialty Start Date End Date SavitaRic santos III, MD PCP - General 12/08/07 Logistics Planner Relationship Specialty Start Date End Date SavitaRic santos III, MD PCP - General 12/08/07 Logistics Planner Relationship Specialty Start Date End Date SavitaRic santos III, MD PCP - General 12/08/07 Logistics Planner Relationship Specialty Start Date End Date SavitaRic santos III, MD PCP - General 12/08/07 Logistics Planner Relationship Specialty Start Date End Date SavitaRic santos III, MD PCP - General 12/08/07 Logistics Planner Relationship Specialty Start Date End Date SavitaRic santos III, MD PCP - General 12/08/07 Logistics Planner Relationship Specialty Start Date End Date SavitaRic santos III, MD PCP - General 12/08/07 Logistics Planner Relationship Specialty Start Date End Date SavitaRic santos III, MD PCP - General 12/08/07 Logistics Planner Relationship Specialty Start Date End Date SavitaRic santos III, MD PCP - General 12/08/07 Team Status: Active Member Role Status Dates Dr. Dominick Earl MD Primary Care Provider Active Team Status: Inactive Member Role Status Dates Dr. Rashawn Hollis DO Attending Provider Active Start: January 12, 2025 End: January 12, 2025 Team Status: Inactive Member Role Status Dates Dr. Eugene Lemus MD Attending Provider Active S tart: January 12, 2025 End: January 12, 2025 Team Status: Inactive Member Role Status Dates Dr. Ernie Preciado MD Attending Provider Active Start: February 02, 2025 End: February 02, 2025 Team Status: Inactive Member Role Status Dates Dr. Ernie Preciado MD Attending Provider Active Start: February 02, 2025 End: February 02, 2025 Dr. Ernie Preciado MD Referring Provider Active Start: February 02, 2025 End: February 02, 2025 Dr. Dominick Earl MD Primary Care Provider Active Start: February 02, 2025 End: February 02, 2025 Team Status: Active Member Role/Relationship Status Dates Dr. Dominick Earl MD Primary Care Provider Active Team Status: Inactive Member Role/Relationship Status Dates Dr. Rashawn Hollis DO Attending Provider Active Start: January 12, 2025 End: January 12, 2025 Team Status: Inactive Member Role/Relationship Status Dates Dr. Eugene Lemus MD Attending Provider Active S tart: January 12, 2025 End: January 12, 2025 Team Status: Inactive Member Role/Relationship Status Dates Dr. Ernie Preciado MD Attending Provider Active Start: February 02, 2025 End: February 02, 2025 Team Status: Inactive Member Role/Relationship Status Dates Dr. Ernie Preciado MD Attending Provider Active Start: February 02, 2025 End: February 02, 2025 Dr. Ernie Preciado MD Referring Provider Active Start: February 02, 2025 End: February 02, 2025 Dr. Dominick Earl MD Primary Care Provider Active Start: February 02, 2025 End: February 02, 2025 Team Status: Active Member Role/Relationship Status Dates Dr. Ernie Preciado MD Attending Provider Active Start: March 13, 2025 Dr. Ernie Preciado MD Referring Provider Active Start: March 13, 2025 Dr. Dominick Earl MD Primary Care Provider Active Start: March 13, 2025 Team Status: Inactive Member Role/Relationship Status Dates Dr. Dominick Earl MD Primary Care Provider Active Start: March 15, 2025 End: March 15, 2025 Dr. Dominick Earl MD Referring Provider Active Start: March 15, 2025 End: March 15, 2025 Dr. Ernie Preciado MD Attending Provider Active Start: March 15, 2025 End: March 15, 2025 Team Status: Inactive Member Role/Relationship Status Dates Dr. Dominick Earl MD Primary Care Provider Active Start: April 09, 2025 End: April 09, 2025 Dr. Dominick Earl MD Attending Provider Active Start: April 09, 2025 End: April 09, 2025 Dr. Dominick Earl MD Referring Provider Active Start: April 09, 2025 End: April 09, 2025 Team Status: Active Member Role/Relationship Status Dates Dr. Dominick Earl MD Primary Care Provider Active Start: April 09, 2025 Dr. Dominick Earl MD Attending Provider Active Start: April 09, 2025 Dr. Dominick Earl MD Referring Provider Active Start: April 09, 2025 Team Status: Inactive Member Role/Relationship Status Dates Dr. Dominick Earl MD Primary Care Provider Active Start: April 09, 2025 End: April 09, 2025 Dr. Dominick Earl MD Attending Provider Active Start: April 09, 2025 End: April 09, 2025 Dr. Dominick Earl MD Referring Provider Active Start: April 09, 2025 End: April 09, 2025 Team Status: Inactive Member Role/Relationship Status Dates Dr. Dominick Earl MD Primary Care Provider Active Start: May 01, 2025 End: May 01, 2025 Dr. Dominick Earl MD Referring Provider Active Start: May 01, 2025 End: May 01, 2025 LORRI Aguero Attending Provider Active Start: May 01, 2025 End: May 01, 2025 INFORMATION SOURCE (unrecogn ized section and content) DATE CREATED AUTHOR 01/26/2025 [facility] DATE CREATED AUTHOR AUTHOR'S ORGANIZ ATION 05/08/2025 [facility] Goals (unrecognized section and content) Goals may be documented in a n alternate sectionGoals may be documented in an alternate sectionGoals may be documented in an alternate sectionGoals may be documented in an alternate sectionGoals may be documented in an alternate section FOR RECORDS PERTAINING TO PATIENTS WHO ARE OR HAVE BEEN ENROLLED IN A CHEMICAL DEPENDENCY/SUBSTANCEABUSE PROGRAM, SOME INFORMATION MAY BE OMITTED. This clinical summary was aggregated from multiple sources. Caution should be exercised in using it in the provision of clinical care. This summary normalizes information from multiple sources, and as a consequence, information in this document may materially change the coding, format and clinical context of patient data. In addition, data may be omitted in some cases. CLINICAL DECISIONS SHOULD BE BASED ON THE PRIMARY CLINICAL RECORDS. [facility] provides no warranty or guarantee of the accuracy or completeness of information in this document.
== END | disposition home or self-care (01) ==
PROVIDERS: PCP Internal Medicine; Referring Provider Family Medicine; Visit Provider Family Medicine
DX: R10.816 Epigastric abdominal tenderness (principal)
CPT/HCPCS: 74177; Q9967

== ENCOUNTER → 2025-06-06 | Outpatient (CLI) | payer OTHER, SELFPAY ==
[2025-06-06 12:40] LABS: Cholesterol 286 mg/dL (<=200); Low Density Lipoprotein Calc. 198 mg/dL; Triglycerides 57 mg/dL; Very Low Density Lipoprotein 11 mg/dL (5-40); cholesterol:hdl ratio screen 3.72
== END | disposition home or self-care (01) ==
LOC: MTLAB 10:00
PROVIDERS: PCP Internal Medicine; Referring Provider Internal Medicine; Visit Provider Internal Medicine
DX: Z13.6 Encounter for screening for cardiovascular disorders (principal)
CPT/HCPCS: 36415; 80061

== ENCOUNTER → 2025-06-29 | Outpatient (CLI) | payer OTHER, SELFPAY ==
--- NOTE | 2025-06-29 13:14 | MRI_ITS ---
PROCEDURE: LOWER EXT JOINT ONLY (ROUTINE) 06/29/2025 REASON FOR EXAM: CHRONIC HIP PAIN TECHNIQUE: Procedure Code: MRILEJ Modality: MR Procedure: LOWER EXT JOINT ONLY (ROUTINE) Multiplanar and multisequence images were obtained without IV contrast administration. COMPARISON: 12-Jan-2025 CR FINDINGS: The femoral head and neck are unremarkable. There is no femoral head collapse. The femoroacetabular joints space is maintained. Minimal hip joint effusion. Faint high signal of the greater trochanteric bursa. No marrow infiltrative lesions The visualized muscles of the hip joint appear normal. Left ovarian small functional cyst and right ovarian small hemorrhagic follicle. Prominent parametrial veins. Uterine endocervical Nabothian cysts are noted. Normal appearance of the urinary blader. No pathologically enlarged lymph nodes. No pelvic collections. MRI/Lower Ext Joint Only (Routine) IMPRESSION: Unremarkable study of the hip with minimal joint effusion and small greater tro chanteric bursitis. [facility]
== END | disposition home or self-care (01) ==
PROVIDERS: PCP Internal Medicine; Referring Provider Orthopaedic Surgery; Visit Provider Orthopaedic Surgery
DX: M25.552 Pain in left hip (principal); G89.29 Other chronic pain
CPT/HCPCS: 73721

== ENCOUNTER → 2025-07-19 | Outpatient (CLI) | payer OTHER, SELFPAY ==
--- NOTE | 2025-07-19 12:46 | US_ITS ---
PROCEDURE: PELVIC W/ TRANSVAGINAL REASON FOR EXAM: PAIN, BLEEDING Abnormal uterine bleeding. TECHNIQUE: Procedure Code: [id number] Modality: US Procedure: PELVIC W/ TRANSVAGINAL COMPARISON: None FINDINGS: LMP: July 09, 2025. Measurements: Uterus: 10 cm x 7 cm x 5.7 cm with a volume of 207.2 mL Endometrial Thickness: 8 mm Right Ovary: 3.2 cm x 2.8 cm x 2.3 cm with a volume of 10.6 mL. Left Ovary: 3.2 cm x 1.7 cm x 1.5 cm with a volume of 4.5 mL. TRANSABDOMINAL: Uterus: Heterogeneous myometrial echotexture suggestive of fibroid change although no focal fibroid is seen. Endometrium: The endometrium measures 8 mm. Trace amount of fluid is seen along the fundal portion of the endometrium. Right ovary: Normal size and echotexture. Left ovary: Normal size and echotexture. Other: No large pelvic mass identified. Transvaginal sonography was performed to better visualize the endometrium. TRANSVAGINAL: Uterus: Retroverted. Heterogeneous myometrial echotexture suggestive of fibroid change although no focal fibroid is seen. Endometrium: Normal echotexture.. Small amount of fluid is seen in the fundal portion of the endometrium. Right ovary: Normal size and echotexture. Left ovary: Normal size and echotexture. Other adnexal findings: None. Cul-de-sac: No free intraperitoneal fluid identified. Tenderness: No tenderness US/Pelvic w/ Transvaginal IMPRESSION: Heterogeneous echotexture of the uterus although no focal fibroid is seen. Small amount of fluid is seen in the fundal aspect of the endometrium. Reading Location: [id number]
== END | disposition home or self-care (01) ==
LOC: US 12:43
PROVIDERS: PCP Internal Medicine; Referring Provider Nurse Practitioner Women's Health; Visit Provider Nurse Practitioner Women's Health
DX: N92.0 Excessive and frequent menstruation with regular cycle (principal); N94.6 Dysmenorrhea, unspecified
CPT/HCPCS: 76830; 76856

== ENCOUNTER 2025-07-25 13:52 | Outpatient (CLI) | payer OTHER, SELFPAY | END 2025-07-25 23:59 | disposition home or self-care (01) | PROVIDERS: Visit Provider Obstetrics & Gynecology | DX: Z12.39 Encounter for other screening for malignant neoplasm of breast (principal); Z80.41 Family history of malignant neoplasm of ovary | CPT/HCPCS: 36415 ==

== ENCOUNTER 2025-08-30 17:39 | Observation (INO) | payer OTHER, SELFPAY ==
[2025-08-16 11:07] LABS: Hematocrit 42.0 % (37-47); Hemoglobin 14.0 g/dL (12.0-15.0); Mean Corp Hgb Conc 33.3 g/dL (32-36); Mean Corpuscular Volume 91.5 fL (81-99); Mean Platelet Vol. 9.3 fl (6.2-12.0); Platelet Count 287 K/mm3 (150-450); RBC Distribution Width CV 11.7 % (11.6-14.6); RBC Distribution Width SD 39.2 fl (35.1-43.9); Red Blood Count 4.59 M/mm3 (4.2-5.4); White Blood Count 5.0 K/mm3 (4.4-11.0)
[2025-08-16 11:55] LABS: Magnesium 2.1 mg/dL (1.5-2.2)
--- NOTE | 2025-08-29 15:43 | HP.PCM_ITS ---
History and Physical Date of Admission: 08/30/25 Vital Signs 07/25/2513:05 08/27/2513:20 08/27/2513:24 Height 5 ft 5 ft 5 ft Weight: 126 lb 3 oz BMI 24.6 BP 138/85 H Intake Visit Reasons: Preop [facility] Electroneurodiagnostic Technologist Required: No Is patient in pain?: No Allergies No Known Allergies Allergy (Verified 08/27/25 13:23) Medications ?Medication ?Instructions ?Recorded ?Confirmed ?Type sertraline 25 mg tablet (Zoloft) 25 mg PO QDAY #90 tabs 05/25/25 08/27/25 Rx diclofenac potassium 25 mg tablet 25 mg PO BID 07/25/25 08/27/25 History tizanidine 4 mg capsule 4 mg PO QHS 07/25/25 08/27/25 History Is last menstrual period known: Yes Last Menstrual Period: 09/08/25 (2 periods in the month of July) Post menopausal: No Patient : No : No PFSH Medical History Alcohol use Back pain Non-smoker Hyperlipidemia Hepatic steatosis Screening for cardiovascular condition Menorrhagia Anxiety and depression Anesth complication NOS-deliver Anxiety Surgical History History of wisdom tooth extraction History of selective injection of anesthetic agent around lumbar nerve root History of breast augmentation History of delivery History of tonsillectomy Family History Father AA (alcohol abuse) Arthritis Depression Mother Anemia Hypercholesteremia Maternal Grandmother Ovarian cancer Thyroid disorder Uterine cancer Osteoporosis Colon cancer Melanoma CVA (cerebral vascular accident) Hypercholesteremia Maternal Grandfather Myocardial infarction Heart disease Kidney disease Melanoma CVA (cerebral vascular accident) Grandfather Heart disease Sister Severe allergy Social History adopted: No household members: spouse and children number of children: 2 current occupational status: unemployed pets and animals: No sexually active: Yes Smoking Status: Never smoker alcohol intake: current alcohol intake frequency: holidays/special occasions only details: < 3 in 1 sitting substance use type: does not use caffeine: Yes (1 rain energy 300mg) Type: other what type of physical activity do you participate in: aerobics frequency: 5-6 times per week do you feel safe at home: Yes additional social history: - 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 [facility] Preop [facility] Details: Vital Signs 07/25/2513:05 08/27/2513:20 08/27/2513:24 Height 5 ft 5 ft 5 ft Weight: 126 lb 3 oz BMI 24.6 BP 138/85 H Intake Visit Reasons: Preop [facility] Electroneurodiagnostic Technologist Required: No Is patient in pain?: No Allergies No Known Allergies Allergy (Verified 08/27/25 13:23) Medications ?Medication ?Instructions ?Recorded ?Confirmed ?Type sertraline 25 mg tablet (Zoloft) 25 mg PO QDAY #90 tabs 05/25/25 08/27/25 Rx diclofenac potassium 25 mg tablet 25 mg PO BID 07/25/25 08/27/25 History tizanidine 4 mg capsule 4 mg PO QHS 07/25/25 08/27/25 History Is last menstrual period known: Yes Last Menstrual Period: 09/08/25 (2 periods in the month of July) Post menopausal: No Patient : No : No PFSH Medical History Alcohol use Back pain Non-smoker Hyperlipidemia Hepatic steatosis Screening for cardiovascular condition Menorrhagia Anxiety and depression Anesth complication NOS-deliver Anxiety Surgical History History of wisdom tooth extraction History of selective injection of anesthetic agent around lumbar nerve root History of breast augmentation History of delivery History of tonsillectomy Family History Father AA (alcohol abuse) Arthritis Depression Mother Anemia Hypercholesteremia Maternal Grandmother Ovarian cancer Thyroid disorder Uterine cancer Osteoporosis Colon cancer Melanoma CVA (cerebral vascular accident) Hypercholesteremia Maternal Grandfather Myocardial infarction Heart disease Kidney disease Melanoma CVA (cerebral vascular accident) Grandfather Heart disease Sister Severe allergy Social History adopted: No household members: spouse and children number of children: 2 current occupational status: unemployed pets and animals: No sexually active: Yes Smoking Status: Never smoker alcohol intake: current alcohol intake frequency: holidays/special occasions only details: < 3 in 1 sitting substance use type: does not use caffeine: Yes (1 rain energy 300mg) Type: other what type of physical activity do you participate in: aerobics frequency: 5-6 times per week do you feel safe at home: Yes additional social history: - 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 Menstrual History - Reports menorrhagia with cycles lasting over 10 days each month, with heavy bleeding requiring changes every hour. - Experiences significant cramping and pain during menstruation. - Noted a sharp groin pain during cycles over the past 6 months, initially thought to be related to back and hip issues. - Denies any chest pain, shortness of breath, bowel complaints, nausea, vomiting, bloating, diarrhea, or constipation on a regular basis. - Denies any new or significant bladder issues, though she reports a history of a weak bladder. Pelvic Pain - Reports a sharp groin pain during cycles over the past 6 months, initially thought to be related to back and hip issues. Contraception History - had a vasectomy when their child was 4 months old; patient has no interest in hormonal control. - Attempted IUD placement in March last year at another clinic, which was unsuccessful and extremely painful. - Ultrasound at that time noted a retroverted uterus, which was not addressed by the clinician. - Recent ultrasound last week confirmed retroverted uterus; occ ther suggested this may have contributed to the difficulty with IUD placement. Back and Hip Pain - Diagnosed with spondylolisthesis and two bulged discs at L4 and L5. - Underwent physical therapy for 8 weeks and received an epidural injection at L4 and L5. - Still experiencing hip pain; recent MRI confirmed bursitis on the left greater trochanter. - Received an anterior injection for bursitis two weeks ago, which provided relief. - Anticipates needing another epidural injection in the next month or two. Family History - Maternal grandmother had uterine and ovarian cancer. Past Diagnostic Results - MRI: Noted issues with uterus and right ovary, including cysts and prominent veins. - Pap smears: Up to date and normal, with no history of abnormal results. - Blood counts and thyroid function: Reportedly normal. 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) ROS: Cardiovascular: (-) chest pain Respiratory: (-) shortness of breath Gastrointestinal: (-) bowel complaints, (-) nausea, (-) vomiting, (-) bloating, (-) diarrhea, (-) constipation Genitourinary: (+) heavy menstrual bleeding, (+) prolonged menstrual bleeding >10 days, (+) dysmenorrhea, (+) groin pain during menses Musculoskeletal: (+) left hip pain, (+) low back pain PhysicalExam: GENERAL: Pleasant; no acute distress BREAST: soft, non-tender, symmetric, no dominant mass, normal nipple-areolar complex, no lymphadenopathy, no nipple discharge PULMONARY: normal inspiratory effort ABDOMEN: soft, non-tender, no masses : - PELVIC: external genitalia normal, normal Bartholin's glands, urethra, [place]'s glands, no vulvar lesions, no cervical lesions, good vaginal support, physiologic discharge present, normal appearing perineal body and perianal region - BIMANUAL: uterus normal size, shape and consistency, no adnexal masses, non- tender - Patient consent for exam received NEURO: alert and oriented x3 EXTREMITIES: normal Female Reproductive History Last Menstrual Period: 09/08/25 (2 periods in the month of July) History 2 Elective abortions Hx Para 2 Spontaneous abortions Hx # Term Pregnancies Ectopic pregnancies Hx # Pregnancies Multiple births # of living children 2 Past Pregnancies Del. Date Name GA/Weeks Outcome Route Bth Weight Infant Gen Labor Lgth Anesthesia Del Locatn Provider FOB Unknown Reba Unknown Migue Coding Diagnoses PMS2-related Velasquez syndrome (HNPCC4) Z15.060; Z15.068; Z15.07; Z15.09 Family history of cancer in grandmother Z80.9 Menorrhagia with regular cycle N92.0 Dysmenorrhea N94.6 Additional Codes SDOH Screening - Does the patient want assistance with any of the above?: Assessment/Plan: # Pelvic congestion syndrome (N94.89): - Likely contributing to heavier menses and dysmenorrhea due to varicose pelvic veins. - Discussed non-hormonal medication (Lysteda) versus definitive surgical management with hysterectomy. - Educated on potential for persistent pelvic pain and heavier bleeding if untreated. # Abnormal uterine bleeding (N93.9): - Menorrhagia lasting over 10 days each cycle; patient reports heavy flow and significant dysmenorrhea. - Reviewed medication options: control pills or Lysteda (tranexamic acid), 3 times daily for up to 5 days during menses. - Discussed definitive management with laparoscopic hysterectomy; explained risks of bleeding, infection, anesthesia, and possible adhesions from prior sections. - In-office endometrial biopsy planned to rule out premalignant or malignant endometrial changes; noted retroverted uterine anatomy and will attempt careful insertion without forceful maneuvers. - Reinforced that outpatient same-day discharge is anticipated for hysterectomy, with approximately two to four weeks of recovery depending on healing progress and job demands. # Intramural leiomyoma of uterus (D25.1): - Contributing to uterine enlargement, increased cramping, and heavier bleeding. - See Abnormal uterine bleeding above for treatment/management plan. 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 - Will account for uterine tilt during endometrial biopsy to minimize discomfort; no further intervention indicated. # Family history of malignant neoplasm of ovary (Z80.41): - Advised genetic testing to evaluate for hereditary cancer syndromes; patient expressed agreement. - Counseling provided regarding possible prophylactic removal of ovaries if testing is positive. # Family history of malignant neoplasm of uterus (Z80.49): - See Family history of malignant neoplasm of ovary above for shared genetic testing plan. Patient Instructions: - Option of Lysteda: take three times daily for up to five days during your menstrual period to reduce bleeding and cramping (non-hormonal option). - If you prefer medication over surgery, you may consider starting a daily hormonal control pill to manage your heavy bleeding (discuss options if interested). patient declined. - Genetic testing has been ordered to assess your risk for hereditary uterine and ovarian cancer; follow the lab?s instructions to complete this testing. - An endometrial biopsy was attempted to be performed today to evaluate the lining of your uterus for any precancerous or cancerous changes. however this was unsuccessful, patient counseled regarding the option of either having a d and c first to evaluate the lining, or proceeding with hysterectomy and taking the risk of needing future surgyer if any cancer is present. - Blood samples were collected today to check your blood counts and thyroid function. - We will obtain your previous Pap smear records to confirm your cervical cancer screening is current. - You have been referred for a laparoscopic hysterectomy to remove your uterus and fallopian tubes; most patients go home the same day, with about four weeks off work for recovery (you may be able to return to light duties in about two weeks). - A member of our team will contact you to schedule your surgery and discuss any additional preoperative steps. Female Reproductive History Last Menstrual Period: 09/08/25 (2 periods in the month of July) History 2 Elective abortions Hx Para 2 Spontaneous abortions Hx # Term Pregnancies Ectopic pregnancies Hx # Pregnancies Multiple births # of living children 2 Past Pregnancies Del. 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 refer [facility] due to increased risk of cancer (3) Menorrhagia with regular cycle: Status: Acute Comment: failed IUD attempt at [facility]. Declines lysteda, estrogen use. unable to perform EMB. obtain pap records. nl cbc tsh. plan [facility] BS. (4) Dysmenorrhea: Status: Acute
[2025-08-30] VITALS (14 sets, daily range): BP systolic 108–140; BP diastolic 70–90; PULSE 85–107; RESP 13–19; TEMP 36.2–37.3; O2SAT 96–100; BMI 24.4
[2025-08-30] MEDS: Scopolamine 1mg/72hr Patch 1 PATCH TD (09:51)
[2025-08-30] MEDS: metroNIDAZOLE 500 MG/100 ML BAG 100 MG IV (09:52)
[2025-08-30] MEDS: Magnesium 1 GM over 15 mins IV (09:53)
[2025-08-30] MEDS: Lactated Ringers 1,000 ML 40 ML IV (09:53)
[2025-08-30 10:34] LABS: Hematocrit 37.4 % (37-47); Hemoglobin 13.0 g/dL (12.0-15.0); Mean Corp Hgb Conc 34.8 g/dL (32-36); Mean Corpuscular Volume 89.0 fL (81-99); Mean Platelet Vol. 9.4 fl (6.2-12.0); Platelet Count 213 K/mm3 (150-450); RBC Distribution Width CV 11.9 % (11.6-14.6); RBC Distribution Width SD 38.5 fl (35.1-43.9); Red Blood Count 4.20 M/mm3 (4.2-5.4); White Blood Count 5.0 K/mm3 (4.4-11.0)
--- NOTE | 2025-08-30 10:39 | PCM.PRE.AN2 ---
ASA Classification* ASA Classification ASA Classification: 2 Assessment & Plan Anesthesia* Anesthesia Assessment Anesthesia Assessment: Discussed sedation and/or anesthesia options, risks, benefits, and alternatives with patient/parents/legal guardian/POA. Questions invited. The patient/parents/legal guardian/POA seems to understand and agrees to proceed with anesthesia plan. Reviewed the physical assessment, medical history, allergy history and patient home medications list prior to surgery/procedure/anesthetic and documented any changes. Performed airway and anesthesia risk assessments. Anesthesia Type Anesthesia Type: General History Source History Obtained from:: Patient and Chart Anesthesia Focused Assessment* Temperature: 97.7 F Pulse Rate: 85 Blood Pressure: 108/70 Respiratory Rate: 16 Pulse Ox: 98 Oxygen Delivery Method: Room Air Airway Assessment Mouth opens: >3 cm Mallampati Score: II Teeth Condition: Intact Neck Range of motion (ROM): Full ROM Labs Anesthesia Preop lab: CBC WBC, (4.4-11.0) 5.0 K/mm3 Today, 10:21 RBC, (4.2-5.4) 4.20 M/mm3 Today, 10:21 Hgb, (12.0-15.0) 13.0 g/dL Today, 10:21 Hct, (37-47) 37.4 % Today, 10:21 Plt Count, (150-450) 213 K/mm3 Today, 10:21 CHEMISTRY Potassium, (3.3-5.1) 4.4 mmol/L 04/09/25, 15:32 Sodium, (133-145) 139 mmol/L 04/09/25, 15:32 Magnesium, (1.5-2.2) 2.1 mg/dL 08/16/25, 10:38 BUN, (4-19) 18 mg/dL 04/09/25, 15:32 Creatinine, (0.70-1.20) 0.87 mg/dL 04/09/25, 15:32 Glucose, (70-99) 86 mg/dL 04/09/25, 15:32 TSH, (0.300-4.200) 1.010 uIU/mL 04/09/25, 15:32 COAG Pre-Assessment Diagnosis/Proposed Procedure Planned Operative Procedure(s): (B) Hysterectomy,LAVH, Bilateral Salpingectomy Anesthesia History 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 When Was Last Pacemaker Check QUESTION #4 FULL TEXT: You/Your Family Experience fever (hyperthermia) with Anesthesia Last Oral Intake Last Oral intake: Last Oral Intake NPO since Meds taken in AM with sips of Yes 08/30/25 09:43 water? Meds patient instructed to 0830 08/30/25 09:43 take am of surgery PONV PONV - forest examiner: PONV - forest examiner Female Yes 08/16/25 09:12 HX of Motion Sickness No 08/16/25 09:12 HX of N/V After Surgery No 08/16/25 09:12 Non-Smoker Yes 08/16/25 09:12 Duration of Surgery greater Yes 08/16/25 09:12 than 60 minutes Number of Risk Factors 3 08/16/25 09:12 PONV Score Moderate Risk 08/16/25 09:12 Height & Weight Height & Weight: Anesthesia: Height & Weight Height 5 ft 08/30/25 09:43 Weight: 56.699 kg 08/30/25 09:43 Body Mass Index (BMI) 24.4 08/30/25 09:43 Respiratory Assessment Respiratory Assessment - forest examiner: Respiratory Tract Infection Hx - forest examiner Hx Respiratory Tract Infection No 08/16/25 09:12 STOP Sleep Apnea STOP Sleep Apnea - forest examiner: STOP Sleep Apnea - forest examiner Hx Hypertension No 08/16/25 09:12 Hx Sleep Apnea No 08/16/25 09:12 CPAP BIPAP Do you snore loudly (louder No 08/16/25 09:12 than talking or can be heard Do you often feel tired/ No 08/16/25 09:12 fatigued/ sleepy during daytime? Has anyone observed you stop No 08/16/25 09:12 breathing during sleep? STOP Results Negative 08/16/25 09:12 QUESTION #5 FULL TEXT : Do you snore loudly (louder than talking or can be heard through closed doors)? Tobacco Use History Tobacco Use History - forest examiner: Tobacco Use History - forest examiner Tobacco Use Smoking Status Never smoker 08/16/25 09:12 Hx Tobacco Use No 08/16/25 09:12 Years Smoking Packs Smoked per Day Smoking Cessation Date was within the last 15 years Hx Smoking Cessation Date Hx Smoking Cessation Counseling Hematologic Medial History Hematologic Hx - forest examiner: Hematologic Medical Hx - faith healer Hx of Blood Transfusion No 08/16/25 09:12 Hx of Transfusion in last 3 No 08/16/25 09:12 Months Date of Last Transfusion (if within last 3 months) Ever experience any problems No 08/16/25 09:12 with transfusion(s)? Specify any problems Hx of Preganancy in last 3 No 08/16/25 09:12 Months Nurse Filling Out Transfusion MGRIFFITH 08/16/25 09:12 & Questions: Date: 08/16/25 08/16/25 09:12 Time: 09:15 08/16/25 09:12 Patient unable to answer at this time (ie. confused, unrespo /Reproduction History /Reproductive History - forest examiner: /Reproductive Hx- forest examiner Hx Now No 08/16/25 09:12 Gestational Age (in weeks): EDC: Hx Hx Para Hx Section SAB No 08/27/25 13:24 Does the father of the baby or his family experience fever w Father of the baby Malignant Hypertension history comment Active Medications Active Medications: Current Medications Generic Name Dose Route Start Last Admin Trade Name Freq PRN Reason Stop Dose Admin Acetaminophen 1,000 mg 08/30/25 11:00 08/30/25 09:51 Acetaminophen 500 Mg Tablet PO 08/30/25 11:01 1,000 mg PREOP ONE Administration Celecoxib 400 mg 08/30/25 11:00 08/30/25 09:50 Celecoxib 200 Mg Capsule PO 08/30/25 11:01 400 mg PREOP ONE Administration Dexamethasone Sodium Phosphate 8 mg 08/30/25 11:00 Dexamethasone 4 Mg/Ml Vial IV 08/30/25 11:01 INTRAOP ONE Enoxaparin Sodium 40 mg 08/30/25 11:00 08/30/25 09:53 Enoxaparin 40 Mg/0.4 Ml Syringe SC 08/30/25 11:01 40 mg PREOP ONE Administration Gabapentin 600 mg 08/30/25 11:00 08/30/25 09:51 Gabapentin 600 Mg Tablet PO 08/30/25 11:01 600 mg PREOP ONE Administration Lactated Ringer's 1,000 mls @ 40 mls/hr 08/30/25 11:00 08/30/25 09:53 IV 40 mls/hr .Q25H POORNIMA Administration Cefazolin Sodium 2 gm/ Sodium 110 mls @ 150 mls/hr 08/30/25 11:00 Chloride IV 08/30/25 11:43 INTRAOP ONE Metronidazole 500 mg in 100 mls @ 100 mls/hr 08/30/25 11:00 08/30/25 09:52 Flagyl IV 08/30/25 11:59 100 mls/hr INTRAOP ONE Administration Magnesium Sulfate 1 gm/ 102 mls @ 408 mls/hr 08/30/25 11:00 08/30/25 09:53 Dextrose IV 08/30/25 11:14 408 mls/hr PREOP ONE Administration Insulin Human Lispro 0 unit 08/30/25 11:00 Insulin Lispro 100 Unit/Ml Insuln.Pen SC 08/30/25 17:00 Q4H PRN PRN BG >/= 180, SEE PROTOCOL Protocol Ondansetron HCl 4 mg 08/30/25 11:30 Ondansetron 4 Mg/2 Ml Vial IV 08/30/25 11:31 INTRAOP ONE Phenazopyridine HCl 190 mg 08/30/25 11:00 08/30/25 09:51 Phenazopyridine 95 Mg Tablet PO 08/30/25 11:01 190 mg PREOP ONE Administration Scopolamine HBr 1 patch 08/30/25 11:00 08/30/25 09:51 Scopolamine 1mg/72hr Patch TD 08/30/25 11:01 1 patch PREOP ONE Administration PFSH Medical History Alcohol use Back pain Non-smoker Hyperlipidemia Hepatic steatosis Screening for cardiovascular condition Menorrhagia Anxiety and depression Anesth complication NOS-deliver Anxiety Home Medications ?Medication ?Instructions ?Recorded ?Last Taken ?Type sertraline 25 mg tablet (Zoloft) 25 mg PO QDAY #90 tabs 05/25/25 08/30/25 08:30 Rx diclofenac potassium 25 mg tablet 25 mg PO BID 07/25/25 08/30/25 08:30 History tizanidine 4 mg capsule 4 mg PO QHS 07/25/25 Unknown History Allergy/AdvReac Type Severity Reaction Status Date / Time No Known Allergies Allergy Verified 08/27/25 13:23 Family History Father AA (alcohol abuse) Arthritis Depression Mother Anemia Hypercholesteremia Maternal Grandmother Ovarian cancer Thyroid disorder Uterine cancer Osteoporosis Colon cancer Melanoma CVA (cerebral vascular accident) Hypercholesteremia Maternal Grandfather Myocardial infarction Heart disease Kidney disease Melanoma CVA (cerebral vascular accident) Grandfather Heart disease Sister Severe allergy Surgical History History of wisdom tooth extraction History of selective injection of anesthetic agent around lumbar nerve root History of breast augmentation History of delivery History of tonsillectomy Social History adopted: No household members: spouse and children number of children: 2 current occupational status: unemployed pets and animals: No sexually active: Yes Smoking Status: Never smoker alcohol intake: current alcohol intake frequency: holidays/special occasions only details: < 3 in 1 sitting substance use type: does not use caffeine: Yes (1 rain energy 300mg) Type: other what type of physical activity do you participate in: aerobics frequency: 5-6 times per week do you feel safe at home: Yes additional social history: - Marok- 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
--- NOTE | 2025-08-30 11:00 | HYST_PTH ---
PATIENT: CECE SORENSON LOC: [facility] U#:[id number] AGE/SX: 40/F ROOM: TN323 RE08/30/[address]: Dr. Salma Faustin MD : 1985 BED: 1 DIS: 08/31/2025 SPEC #: [id number] RECD: 08/30/25 14:17 STATUS: NICOLE HALL #: [id number] PHILLIP: 08/30/25 11:[address]: Salma Faustin DEPT: SURGICAL PATHOLOGY RECD BY: Abebe Foley ENTERED: 08/31/25 11:03 SP TYPE: HYSTERECT OTHR DR: Dr. Dominick Earl MD Tissues: A - Uterus, NOS Procedures: Surgery Specimen Level V HEADER OPERATION: ERAS, Hysterectomy, LAVH, bilateral salpingectomy PRE-OP DIAGNOSIS: PMS2-related Velasquez syndrome (HNPCC4), menorrhagia with regular cycle, dysmenorrhea, family history TISSUE SUBMITTED: A. Uterus, cervix and bilateral fallopian tubes MICROSCOPIC DIAGNOSIS A. Uterus, fallopian tubes, hysterectomy, bilateral salpingectomy: - Cervix: no specific pathologic change. - Endometrium: secretory phase. - Myometrium: no specific pathologic change. - Left Fallopian tube: no specific pathologic change. - Right Fallopian tube: no specific pathologic change. MICROSCOPIC DESCRIPTION Slides are reviewed. GROSS DESCRIPTION A. Received in formalin labeled with the patient's name and date of . Designated as uterus, cervix, bilateral fallopian tubes is a 125.8 g, 7.7 x 6.3 x 4.4 cm uterus with attached adnexa. The serosa is estes-pink and focally erythematous. The attached cervix is estes and focally granular, measuring 3.7 x 3.3 cm; the 1.2 cm os is probe patent and expelling slightly hemorrhagic mucoid material. Small mucoid containing cysts are present. The specimen is inked as follows: [id number] Opening reveals a 6.2 x 3.3 cm endometrial canal lined by pale estes to red, lush endometrium that measures up to 0.8 cm thick. The myometrium is estes-pink and measures up to 1.6 cm thick. No definitive lesions are identified. The red-purple bilateral fallopian tubes are fimbriated and measure 6.0 x 0.6 cm (L) and 4.5 x 1.0 cm (R). Supervisor Product Inspection sections, to include the entirety of the endometrium and fallopian tubes (per SEE-FIM protocol) are submitted as follows: A1: Anterior cervixA2: Posterior cervixA3-A4: Lower uterine segment, [id number]: Anterior endometrium from ANTHONY to fundus, including full-thickness sections in cassettes [id number]: Posterior endometrium from ANTHONY to fundus, including full-thickness sections in cassettes [id number]: Left fallopian tube, sequentially from fimbria to [id number]: Right fallopian tube, sequentially from fimbria to isthmus [place] 08/31/2025 CPT:68453
[2025-08-30 11:07] LABS: Internal QC Validated? YES +Cl - CLEAR BKGD; Pregnancy, Urine Negative Negative
[2025-08-30] MEDS: Cefazolin 1 GM/5 ML Vial 2 GM IV (11:20)
--- NOTE | 2025-08-30 11:20 | PCM.OPRPT ---
Procedures Urinary/Genital 52xxx-59xxx: 47914 LAVH+BS/O <250gr Uterus Operative Report (Standard) Operative Information Date of Procedure: 08/30/25 Pre-Operative Diagnosis: see problem list dysmenorrhea and pms2 mutation falcon syndrome Post-Operative Diagnosis: same plus endometriosis Surgery/Procedure Performed: laparoscopic assisted vaginal hysterectomy bilateral salpingectomy assistant field hockey coach: Yes Telecommunications Line Installer: Beatriz Srinivasan Tasks completed by certified medical assistant: Opening & closing, Trocar and Retracting Additional podiatrist assistant?: No Type of Anesthesia: General RN Documented Start/Stop Times: Operation Date: 08/30/25 11:00 Case Time Into Pre-Op 08/30/25 09:08 Out of Pre-Op 08/30/25 10:55 Anesthesia Start 08/30/25 11:19 Into Room 08/30/25 11:19 Procedure Start 08/30/25 11:45 Procedure Start Time: 11:45 Procedure Stop Time: 13:40 Select all DRAINS/GRAFTS/IMPLANTS that apply: Drains (stern) Drain details: stern removed at the end of the procedure Estimated Blood Loss: 200 Fluids Replaced: crystalloid Specimen collected: Yes Description of specimen(s) removed: uterus and tubes Description of surgery: Patient received preoperative antibiotics and SCDs were on preoperatively. Patient was taken back to the operating room and placed in the dorsal lithotomy position. General anesthesia was induced and patient was prepped and draped in normal sterile fashion. Uterine manipulator was placed inside the uterus and Stern catheter placed in the bladder. The umbilicus was grasped with towel clamps and an intraumbilical incision was made after injecting with quarter percent Marcaine and a Veress needle entered into the abdomen confirmed to be intra-abdominal with a low opening pressure. Abdomen was insufflated with CO2 gas and the Veress needle removed and the 5 mm trocar was placed under direct visualization without complication. Right and left lower quadrants were transilluminated and injected with quarter percent Marcaine and 5 mm ports placed under direct visualization. Pelvis was well visualized see operative findings for additional information. Bilateral fallopian tubes were identified and transected with the LigaSure device across the mesosalpinx to the level of the utero-ovarian ligament which was also transected with the LigaSure device. The broad ligament was opened up by transecting the round ligament bilaterally and skeletonizing the uterine vessels bilaterally, and creating a bladder flap using the LigaSure device. Dense vesicouterine adhesions were taken down with the ligasure and with hydrodissection, sharp and with monopolar scissors. this took approximately 30 minutes. The uterine arteries were transected bilaterally with good visualization of the bladder and the ureters were seen to be inferior lateral to the operative area. Attention was then paid to the vaginal portion of the procedure and the cervix was grasped with Eulalia clamps and circumferentially injected with dilute vasopressin. A circumferential incision was made and the vaginal mucosa was mobilized off posteriorly and the cul-de-sac entered into sharply and a longneck speculum placed. The anterior cul-de-sac was then identified and entered into sharply. The uterosacral ligaments were clamped cut and suture ligated with 0 Monocryl bilaterally followed by the cardinal ligaments which were clamped cut and suture ligated bilaterally with 0 Monocryl. The uterus serially descended and was removed without difficulty with minimal morcellation. Pelvic sidewall pedicles were checked and noted to have excellent hemostasis. The vaginal mucosa was reapproximated incorporating the posterior peritoneum. This was reapproximated using 0 Vicryl [id number] sutures. Excellent hemostasis was noted. Attention paid to the abdominal portion of the procedure again. The pelvis and cul-de-sac was well visualized and several small endometriosis implants were seen and ablated. no significant active bleeding noted but some raw areas were seen on the peritoneum and therefore surgiflow was applied. Pressure was taken down and the areas visualized and noted of excellent hemostasis. All ports were removed under direct visualization without complication and the abdomen was desufflated of air. The instruments removed from the abdomen and the vagina vaginal sweep was negative. Port sites on the abdomen were closed with 4-0 Monocryl interrupted sutures and Steri's and windows were applied. She was awoken and taken recovery in stable condition. Surgical Findings: enlarged uterus dense vesicouterine adhesions stage I endometriosis Complications Complications: No
[2025-08-30] MEDS: Lidocaine 1% (5 ml sdv) 5 ML Vial 8 ML IV (11:25)
--- NOTE | 2025-08-30 11:25 | PCM.DC ---
Discharge Instructions DC O2, CPAP, BIPAP needs Home O2 Discharge instructions: No Dressing / Incision May resume sexual activity in: 6 weeks Weight Bearing Status: Full weight bearing Dressing / Incision Call your doctor if your incision/area has: Continuous Slow Oozing, Sudden Increased Bleeding, Increased Pain/ Swelling, Increased Redness and Foul Smelling Discharge Call your doctor if you observe: Fever of 101 or Higher, Using more than 1 pad per hour, Shortness of breath, Chest pain and Uncontrolled pain Suture Line Care: Avoid Pulling/Pushing and Avoid Pinching/Bending Remove Dressing in: 1 week (if present) Cleanse incision/area with: Soap & Water and Keep Dressing Clean & Dry Follow Up Care Please Follow Up With: Salma Faustin MD When: Call to make an appointment with your doctor for a postop visit in 2 and 6 weeks. Test Results: Test results from this visit will be discussed in further detail at your follow-up appointment, if applicable. Discharge Plan Admission Attending Provider: Salma Faustin Primary Care Provider: Dominick Earl Instructions Print Language: Belizean Discharge Orders/Prescriptions Prescriptions: New oxycodone-acetaminophen [Percocet] 5-325 mg tablet 1 tab PO Q4H PRN (Reason: pain) 7 Days Qty: 20 0RF naproxen 500 mg tablet 500 mg PO BID PRN PRN (Reason: Pain) Qty: 30 1RF No Action sertraline [Zoloft] 25 mg tablet 25 mg PO QDAY Qty: 90 1RF tizanidine 4 mg capsule 4 mg PO QHS diclofenac potassium 25 mg tablet 25 mg PO BID Disposition Disposition (needs filled in before D/C Order can be placed): Home, Self Care
[2025-08-30] MEDS: DiphenhydrAMINE 50 MG/ML Syringe 12.5 MG IV (11:30)
[2025-08-30] MEDS: fentaNYL 100 MCG/2 ML Ampul 200 MCG IV (14:03)
--- NOTE | 2025-08-30 14:14 | PCM.POST.ANE ---
Anesthesia: Postop Eval I Current Vital Signs Temperature: 97.2 F Pulse Rate: 90 Blood Pressure: 112/71 Respiratory Rate: 16 Pulse Ox: 100 Oxygen Delivery Method: Room Air Assessment Airway patent: Yes Spontaneous unlabored respirations: Yes Mental status: Awake and Calm nausea: No Vomiting: No Anesthesia Complication: No Fluid Hydration Crystalloid volume administer (ml): 1,500 Total IV fluid infused: 1,500 Progress Note Anesthesia document: Postop Eval 1 completed: Yes
--- NOTE | 2025-08-30 14:45 | POSTOPAN2_ITS ---
Anesthesia Postop Eval I Sum Postop Eval Completion status Anesthesia document: Postop Eval 1 completed: Yes Anesthesia Postop Eval I Summary Anesthesia Postop Eval I Summary: Anesthesia Postop Eval I: Assessment Summary Airway patent Yes 08/30/25 14:14 MACHINE CLOTHING [email or web address] Spontaneous unlabored Yes 08/30/25 14:14 MACHINE CLOTHING WORKER.[email or web address] respirations Mental status Awake,Calm 08/30/25 14:14 MACHINE CLOTHING WORKER.[email or web address] nausea No 08/30/25 14:14 MACHINE CLOTHING WORKER.[email or web address] Vomiting No 08/30/25 14:14 MACHINE CLOTHING WORKER.[email or web address] Anesthesia Postop Eval I: Fluid Summary Crystalloid volume administer 1,500 08/30/25 14:14 MACHINE CLOTHING WORKER.SKOBY (ml) Colloids volume administered ( ml) Blood Product volume administered (ml) Total IV fluid infused 1,500 08/30/25 14:14 MACHINE CLOTHING WORKER.MATYOBLuis Daniel Anesthesia Postop Eval I: Summary Notes Anesthesia Complication No 08/30/25 14:14 MACHINE CLOTHING WORKER.MATYOBLuis Daniel Anesthesia Complication Comment: Post-operative progress note Anesthesia: Postop Eval II Evaluation Mental status: Awake and Calm Pain Level: 1 nausea: No Vomiting: No Complications Anesthesia Complication: No
--- NOTE | 2025-08-30 14:45 | PCM.POSTANE2 ---
Anesthesia Postop Eval I Sum Postop Eval Completion status Anesthesia document: Postop Eval 1 completed: Yes Anesthesia Postop Eval I Summary Anesthesia Postop Eval I Summary: Anesthesia Postop Eval I: Assessment Summary Airway patent Yes 08/30/25 14:14 SECONDARY CONNECTOR [email or web address] Spontaneous unlabored Yes 08/30/25 14:14 SECONDARY CONNECTOR ARMATURE.KEON respirations Mental status Awake,Calm 08/30/25 14:14 SECONDARY CONNECTOR [email or web address] nausea No 08/30/25 14:14 SECONDARY CONNECTOR ARMATURE.[email or web address] Vomiting No 08/30/25 14:14 SECONDARY CONNECTOR [email or web address].SKOBY Anesthesia Postop Eval I: Fluid Summary Crystalloid volume administer 1,500 08/30/25 14:14 SECONDARY CONNECTOR [email or web address] (ml) Colloids volume administered ( ml) Blood Product volume administered (ml) Total IV fluid infused 1,500 08/30/25 14:14 SECONDARY CONNECTOR ARMATURE.MATYOBLuis Daniel Anesthesia Postop Eval I: Summary Notes Anesthesia Complication No 08/30/25 14:14 SECONDARY CONNECTOR ARMATURE.MATYOBLuis Daniel Anesthesia Complication Comment: Post-operative progress note Anesthesia: Postop Eval II Evaluation Mental status: Awake and Calm Pain Level: 1 nausea: No Vomiting: No Complications Anesthesia Complication: No
[2025-08-30] MEDS: Ketorolac 30 MG/ML Syringe IV ×2 (15:32→21:00)
--- NOTE | 2025-08-30 16:36 | SUR.PHASEII ---
pain and nausea improved, patient resting with eyes closed. 1700 CBC to be drawn timed. instructions reviewed with . bladder scan done; 36ml in bladder, scop patch removed.
[2025-08-30 17:24] LABS: Hematocrit 32.5 % (37-47); Hemoglobin 11.3 g/dL (12.0-15.0); Mean Corp Hgb Conc 34.8 g/dL (32-36); Mean Corpuscular Volume 88.8 fL (81-99); Mean Platelet Vol. 9.3 fl (6.2-12.0); Platelet Count 184 K/mm3 (150-450); RBC Distribution Width CV 11.7 % (11.6-14.6); RBC Distribution Width SD 37.3 fl (35.1-43.9); Red Blood Count 3.66 M/mm3 (4.2-5.4); White Blood Count 10.4 K/mm3 (4.4-11.0)
--- NOTE | 2025-08-30 17:45 | SUR.PHASEII ---
Dr. Faustin updated with 1700 CBC result, Dr would like patient to be monitored overnight. with a repeat CBC at 0500. Please call Dr. Faustin with any concerns overnight. LR at 70ml/hr. Orders entered.
--- NOTE | 2025-08-30 18:07 | SUR.PHASEII ---
Patient was able to pass gas, no void yet, scant bleeding on pad.
[2025-08-30] MEDS: Lactated Ringers 1,000 ML 70 ML IV (18:09)
--- NOTE | 2025-08-30 18:13 | SUR.PHASEII ---
scop patch removed in phase 2 to help patient with voiding. patient has not been able to void as of 1800. 2L LR received at this point.Bladder scan showed 39ml prior to removal of scop patch.
[2025-08-31 01:02] LABS: Hematocrit 31.6 % (37-47); Hemoglobin 10.7 g/dL (12.0-15.0); Immature Granulocytes Count 0.030 X10^3/uL (0.0-0.0); Mean Corp Hgb Conc 33.9 g/dL (32-36); Mean Corpuscular Volume 88.8 fL (81-99); Mean Platelet Vol. 9.1 fl (6.2-12.0); NRBC Flagged by Analyzer 0 % (0-5); Platelet Count 183 K/mm3 (150-450); RBC Distribution Width CV 11.7 % (11.6-14.6); RBC Distribution Width SD 37.5 fl (35.1-43.9); Red Blood Count 3.56 M/mm3 (4.2-5.4); White Blood Count 9.6 K/mm3 (4.4-11.0)
[2025-08-31 03:03] VITALS: BP 111/78; PULSE 98; RESP 14; TEMP 37.2; O2SAT 96
[2025-08-31 05:07] LABS: Hematocrit 30.8 % (37-47); Hemoglobin 10.5 g/dL (12.0-15.0); Immature Granulocytes Count 0.020 X10^3/uL (0.0-0.0); Mean Corp Hgb Conc 34.1 g/dL (32-36); Mean Corpuscular Volume 88.8 fL (81-99); Mean Platelet Vol. 9.0 fl (6.2-12.0); NRBC Flagged by Analyzer 0 % (0-5); Platelet Count 174 K/mm3 (150-450); RBC Distribution Width CV 11.8 % (11.6-14.6); RBC Distribution Width SD 38.1 fl (35.1-43.9); Red Blood Count 3.47 M/mm3 (4.2-5.4); White Blood Count 9.6 K/mm3 (4.4-11.0)
[2025-08-31 05:52] VITALS: BP 114/75; PULSE 85; RESP 14; TEMP 37.1; O2SAT 96
[2025-08-31 07:40] VITALS: O2SAT 97
--- NOTE | 2025-08-31 07:53 | PCM.PN.BLA ---
Progress Note patient recovering well, denies CP, SOB, N, or V. patient is ambulating, voiding, passing flatus, tolerating adequate po, and pain is controlled with oral medications. Physical Exam Const alert, oriented x3 and no apparent distress HEENT Head and Scalp: atraumatic Resp normal respiratory effort GI soft to palpation and non-tender Inspection: incision drainage (none) Palpation: Negative for guarding or rigid Assessment & Plan Assessment/Plan (1) Postoperative state: PLAN: patient is s/p laparoscopic assisted vaginal hysterectomy bilateral salpingectomy and lysis of adhesions POD 1 1. routine ERAS protocol postop care- increase ambulation, encourage oral intake and oral control of pain. lovenox and scds for dvt prophylaxis, patient stable for discharge to home.
[2025-08-31] MEDS: Ensure Plus High Protein 120 ML LIQUID PO (09:21)
[2025-08-31] MEDS: Lactated Ringers 1,000 ML 70 ML IV (09:21)
[2025-08-31 09:24] VITALS: BP 120/84; PULSE 78; RESP 16; TEMP 36.5; O2SAT 98
[2025-08-31 11:12] VITALS: BP 117/85; PULSE 79; RESP 15; TEMP 36.8; O2SAT 96
--- NOTE | 2025-08-31 11:14 | PHA.DC_ITS ---
Pharmacy [facility] has performed discharge medication counseling for this patient. The patient was counseled on the following discharge medications and changes in medications for homegoing review. - Naproxen 500 mg tablet, Oxycodone/acetaminophen 5/325 mg tablet The Reason for Use, instructions for use, and potential side effects were reviewed for all new medications. The patient's questions regarding all of their medications were answered. The patient was able to verbally demonstrate an understanding of their discharge medications. Medications at Discharge Home Medications sertraline 25 mg tablet (Zoloft) 25 mg PO QDAY #90 tabs 05/25/25 diclofenac potassium 25 mg tablet 25 mg PO BID 07/25/25 tizanidine 4 mg capsule 4 mg PO QHS 07/25/25 naproxen 500 mg tablet 500 mg PO BID PRN PRN Pain #30 tabs 08/30/25 oxycodone-acetaminophen 5 mg-325 mg tablet (Percocet) 1 tab PO Q4H PRN pain 7 days #20 tabs 08/30/25
== END 2025-08-31 11:16 | disposition home or self-care (01) ==
LOC: SDC 17:44 → MS3 17:44
PROVIDERS: Admitting Provider Obstetrics & Gynecology; PCP Internal Medicine; Referring Provider Obstetrics & Gynecology; Visit Provider Obstetrics & Gynecology
PROC: 0UT9FZZ Resection of Uterus, Via Natural or Artificial Opening With Percutaneous Endoscopic Assistance (ICD-10-PCS; CPT 58552; principal; 2025-08-30 10:35)
DX: N92.0 Excessive and frequent menstruation with regular cycle (principal); N93.9 Abnormal uterine and vaginal bleeding, unspecified; N85.4 Malposition of uterus; D25.1 Intramural leiomyoma of uterus; E78.5 Hyperlipidemia, unspecified; N85.2 Hypertrophy of uterus; N94.6 Dysmenorrhea, unspecified; Z15.09 Genetic susceptibility to other malignant neoplasm; Z80.9 Family history of malignant neoplasm, unspecified; Z15.07 Genetic susceptibility to malignant neoplasm of urinary tract; Z15.060 Genetic susceptibility to colorectal cancer
CPT/HCPCS: 58552; 36415; 81025; 82962; 83735; 85025; 85027; 86850; 86900; 86901; 88307; 96372; 96374; 99221; G0378; J2405; J3475